=== PATIENT | male | born 1960 | race African-American/Black ===

== ENCOUNTER 2020-03-19 04:55 | Inpatient (IN) | payer BC, SELFPAY ==
[2020-03-19] VITALS (19 sets, daily range): BP systolic 78–140; BP diastolic 56–100; PULSE 95–127; RESP 20–35; TEMP 36.2–38.9; O2SAT 93–100; BMI 17.7
--- NOTE | ~2020-03-19 | CT_ITS ---
EXAMINATION: CT brain wo con DATE: 03/24/2020 22:21 INDICATION: Confusion. Rule out acute CVA. TECHNIQUE: Computed tomography (CT) of the head was performed without intravenous contrast. The dose- length product was 605.33 mGy-cm. Automated exposure control and iterative reconstruction technique w ere employed. COMPARISON: None FINDINGS: Generalized atrophy. There are large areas of chronic infarction of the left frontal, parie jose manuel, temporal and occipital lobes with encephalomalacia and dystrophic calcifications. There are scat tered moderate periventricular and subcortical white matter changes, most likely related to small ves rosa ischemic disease (microangiopathy). There is compensatory dilation of the ventricles. No midline shift. Basilar cisterns are patent. There is intracranial atherosclerosis. No acute infarction or hem orrhage. There is mucosal thickening of the right maxillary sinus. Mastoids are pneumatized. No depre ssed skull fractures. IMPRESSION: 1. No acute intracranial abnormality. 2: Large chronic multilobar left hemispheric infarction with encephalomalacia and dystrophic calcific ation. 3: Chronic age-related findings. Reviewed, dictated and finalized at location A. IMPRESSION: 1. No acute intracranial abnormality. 2: Large chronic multilobar left hemispheric infarction with encephalomalacia a nd dystrophic calcification. 3: Chronic age-related findings.
--- NOTE | ~2020-03-19 | US_ITS ---
EXAMINATION: US renal BI DATE: 03/19/2020 16:58 INDICATION: Acute kidney injury TECHNIQUE: Multiple grayscale and Doppler ultrasound images of the kidneys were obtained. COMPARISON: None. FINDINGS: Evaluation of the kidneys is limited by patient condition. The right kidney measures 10.7 x 4.0 x 4.5 cm. The left kidney measures 7.5 x 3.2 x 3.0 cm. The kidneys demonstrate normal parenchyma l echogenicity. There is no definite hydronephrosis. The bladder is decompressed by Cavanaugh catheter. IMPRESSION: 1. Grossly normal kidneys without hydronephrosis, examination limited by patient condition. Reviewed, dictated and finalized at location A. IMPRESSION: 1. Grossly normal kidneys without hydronephrosis, examination limited by patie nt condition.
--- NOTE | ~2020-03-19 | US_ITS ---
EXAMINATION: US venous doppler UE RT EXAM DATE: 03/20/2020 09:36 INDICATION: Right arm edema. TECHNIQUE: Multiple grayscale, color flow, Doppler sonographic images of the right upper extremity ve ins obtained by technologist. Compression was performed where able. Some limitations due to patient 's neck bandage. There are no prior studies for comparison. FINDINGS: Right upper extremity: Jugular vein: ------------> Normal. Subclavian vein: --------> Normal. Axillary vein:------------> Normal. Brachial vein:-----------> Normal. Basilic vein: ------------> Normal. Cephalic vein: ----------> Normal. Radial vein: ------------> Normal. Ulnar vein: > Normal. Right antecubital lymph node measuring 12 x 5 x 8 mm, likely reactive. IMPRESSION: No deep venous thrombosis of the right upper extremity. Reviewed, dictated and finalized at location B.
--- NOTE | ~2020-03-19 | US_ITS ---
EXAMINATION: US venous doppler [facility] EXAM DATE: 03/20/2020 09:35 INDICATION: Immobility. Hypoxia. TECHNIQUE: Multiple grayscale, color flow and Doppler images of the left lower extremity deep venous system were obtained and reviewed. There is no prior study for comparison. FINDINGS: The left common femoral, femoral and profunda veins demonstrate normal color flow, respirat ory variation, augmentation and compressibility. Compressibility, color flow confirmed within the le ft popliteal, posterior tibial, peroneal, and greater saphenous veins. IMPRESSION: 1. No left lower extremity deep venous thrombosis. Reviewed, dictated and finalized at location B.
--- NOTE | ~2020-03-19 | CT_ITS ---
EXAMINATION: CT abdomen pelvis wo con DATE: 03/30/2020 09:11 INDICATION: Fever. Anemia. TECHNIQUE: Computed tomography (CT) of the abdomen and pelvis was performed without intravenous contr ast. Automated exposure control and iterative reconstruction technique were employed. The dose-length product was 543.01 mGy-cm. COMPARISON: CT abdomen and pelvis 03/19/2020 FINDINGS: The visualized portions of the lung bases demonstrate near complete collapse of left lower lobe. There is mild atelectasis in right middle lobe, right lower lobe, and lingula. A calcified righ t lung nodule is consistent with old granulomatous disease. Emphysema is noted. There are small pleur al effusions. Cardiomegaly is noted. There are coronary artery calcifications. No pericardial effusio n. There is a central line tip in right atrium. The liver and spleen are normal. There is a gallstone in the gallbladder, which is decompressed. The pancreas, adrenal glands, and right kidney are normal . There is cortical thinning of left kidney. There is a gastrostomy tube in expected position. There is a 5.7 cm fusiform aneurysm of infrarenal aorta with stent graft in expected position. The prostate is mildly enlarged. There are no dilated loops of bowel. There is an acute 14.0 x 3.3 x 6.9 cm hemat mina anterior to the transverse colon. The appendix is normal. There are no pathologically enlarged ly mph nodes. There is no free intraperitoneal fluid. There is mild thoracolumbar spondylosis. IMPRESSION: 1. Large acute hematoma anterior to transverse colon. 2. Worsened small pleural effusions. 3. Worsened near complete collapse of left lung lower lobe. 4. Stable 5.7 cm fusiform aneurysm of infrarenal aorta with stent graft in expected position. Reviewed, dictated and finalized at location A. IMPRESSION: 1. Large acute hematoma anterior to transverse colon. 2. Worsened small pleural effusions. 3. Worsened near complete collapse of left lung lower lobe. 4. Stable 5.7 cm fusiform aneurysm of infrarenal aorta with stent graft in expe cted position.
--- NOTE | ~2020-03-19 | XR_ITS ---
MODIFIED ESOPHAGRAM HISTORY: Chronic stroke. Altered mental status. TECHNIQUE: Modified barium esophagram was performed on 03/23/2020. I administered fluoroscopy and perfo rmed the exam with speech pathologist. Patient was seated for lateral fluoroscopic imaging for inges tion of thin liquids, pudding, solids and quantified amounts, followed by thin liquids in uncontrolle d amounts. This was recorded on tape. A single fluoroscopic spot image was also recorded. The DAP for this procedure was 2.685 Gycm2. The amount of fluoroscopy time used during this procedure was 3.2 mi nutes. FINDINGS: Oral stage: Reduced lingual movement. Pharyngeal stage: Laryngeal penetration and aspiration. Reduced laryngeal elevation and dressed in th e vallecula and piriform sinus. Cervical/esophageal stage: Prominent Zenker's diverticulum. IMPRESSION: Laryngeal penetration and aspiration. Please correlate with speech pathologist findings and specific feeding recommendations. Reviewed, dictated and finalized at location A.
--- NOTE | ~2020-03-19 | CT_ITS ---
EXAMINATION: CT abdomen pelvis wo con DATE: 03/19/2020 22:44 INDICATION: Abdominal pain TECHNIQUE: Computed tomography (CT) of the abdomen and pelvis was performed without intravenous contr ast. The dose-length product (DLP) was 517.40 mGy-cm. Automated exposure control and iterative recons truction technique were employed. COMPARISON: None FINDINGS: There is atelectasis of the visualized lung bases. Small pleural effusions are present, lef t greater than right. Cardiomegaly is noted. There is bilateral gynecomastia. A small sliding hiatal hernia is present. Within the limitations of noncontrast examination, the liver, spleen, and adrenal glands are normal. The gallbladder is decompressed but normal in appearance. There appears to be mild diffuse enlargement of the pancreas with peripancreatic fat stranding. The kidneys are unremarkable. There is a 5.6 x 4.0 cm fusiform infrarenal abdominal aortic aneurysm status post endoluminal aortic biiliac stent grafting. No pathologically enlarged abdominal or pelvic lymph nodes are identified. T here is liquid stool throughout the colon to the level of the rectum. The bladder is decompressed by Cavanaugh catheter. Small amount of gas in the urinary bladder is likely related to the Cavanaugh catheter. T here is no free intraperitoneal gas or evidence of bowel obstruction. There is mild lumbar spondylosi s. IMPRESSION: 1. Diffuse enlargement of the pancreas with peripancreatic fat stranding, possibly reflecting pancrea titis. 2. Liquid stool throughout the colon to the level of the rectum, consistent with diarrhea. Reviewed, dictated and finalized at location A. IMPRESSION: 1. Diffuse enlargement of the pancreas with peripancreatic fat stranding, possi yona reflecting pancreatitis. 2. Liquid stool throughout the colon to the level of the rectum, consistent wit h diarrhea.
--- NOTE | ~2020-03-19 | US_ITS ---
EXAMINATION: US abdomen complete DATE: 03/20/2020 13:56 INDICATION: Pancreatitis, renal failure TECHNIQUE: Multiple grayscale and Doppler ultrasound images of the abdomen were obtained. COMPARISON: CT from yesterday FINDINGS: There is enlargement and edema of the pancreas. The liver is normal with normal echogenicit y and echotexture. There is a 2.4 x 1.7 x 2.2 cm hyperechoic mass of the liver. This is not identifie d on the comparison CT, likely due to the absence of intravenous contrast. No surface nodularity. Nor mal hepatopetal flow in the main portal vein. The gallbladder is contracted. There is no definite alison dence of pericholecystic fluid or gallbladder wall thickening. The normal common bile duct measures 6 mm. There was no sonographic Clarke sign. The visualized portions of the aorta and inferior vena cav a are normal. The right kidney measures 11.3 x 4.9 x 5.0 cm. The left kidney measures 9.4 x 4.1 x 5.0 cm. The kidne ys demonstrate normal parenchymal echogenicity. There is no hydronephrosis. The spleen is obscured by bowel gas but was unremarkable on the comparison CT. IMPRESSION: 1. Enlarged pancreas, consistent with history of pancreatitis. 2. Indeterminate hyperechoic liver lesion, possibly hemangioma but characterization is incomplete. Wo uld recommend follow-up CT or MRI without and with contrast when renal function improves. Reviewed, dictated and finalized at location A. IMPRESSION: 1. Enlarged pancreas, consistent with history of pancreatitis. 2. Indeterminate hyperechoic liver lesion, possibly hemangioma but characteriza tion is incomplete. Would recommend follow-up CT or MRI without and with contra st when renal function improves.
--- NOTE | ~2020-03-19 | XR_ITS ---
EXAMINATION: XR chest 1V portable DATE: 03/20/2020 05:48 INDICATION: Hypoxia TECHNIQUE: frontal view of the chest was obtained. COMPARISON: Chest radiograph dated 03/19/2020 FINDINGS: Right internal jugular central venous catheter with distal tip in the high right atrium. Implantable quality assurance monitor chassis projects over the lower left chest. Mild bibasilar atelectasis with chronic blunting of the right costophrenic angle. No new airspace opacities, pulmonary edema, pleural effusion or pneu mothorax. Heart size is normal. Masslike contour along the right side of the superior the sternum. IMPRESSION: 1. Bibasilar atelectasis. 2. Masslike contour along the right side of the superior mediastinum which could be related to vascul ature, goiter or lymphadenopathy. Consider contrast-enhanced chest CT for further evaluation. Reviewed, dictated and finalized at location A. IMPRESSION: 1. Bibasilar atelectasis. 2. Masslike contour along the right side of the superior mediastinum which coul d be related to vasculature, goiter or lymphadenopathy. Consider contrast-enhan hanna chest CT for further evaluation.
--- NOTE | ~2020-03-19 | NM_ITS ---
EXAMINATION: NM pulmonary perfusion EXAM DATE: 03/20/2020 13:24 INDICATION: Hypoxia, elevated d-dimer. TECHNIQUE: A perfusion lung scan was performed. The patient was injected with 5 mCi technetium 99m M AA and reimaged. Modified PIOPED 2 criteria used for interpretation of perfusion without ventilation study. Correlation is made to portable AP chest x-ray same date. FINDINGS: Right middle lobe lateral segmental perfusion defect, and subsegmental right upper lobe per fusion defect; intermediate probability pulmonary embolism (high probability scan requires equivalent of 2 large perfusion defects to be rendered). Chest x-ray from this same date demonstrates no radiog raphic opacity in this location. No left-sided perfusion defects. IMPRESSION: 2 right lung perfusion defects; intermediate probability pulmonary embolism. Reviewed, dictated and finalized at location B.
--- NOTE | ~2020-03-19 | XR_ITS ---
EXAMINATION: XR chest port-a-cath/central DATE: 03/19/2020 06:34 INDICATION: Line placement TECHNIQUE: frontal view of the chest was obtained. COMPARISON: None FINDINGS: Triple lumen right internal jugular central venous catheter with distal tip at the high right atrium. Implantable cardiac specialist projects over the left lower lung zone. Bandlike discoid atelectasis in the left perihilar region and at the left lung base. Pleural parenchymal scarring with blunting at th e right costophrenic angle. No other airspace opacities, pulmonary edema, pleural effusion or pneumot horax. The cardiomediastinal silhouette is normal. Likely old healed left fifth rib fracture. IMPRESSION: 1. Mild scarring at the right costophrenic angle and discoid atelectasis in the left mid to lower leta g zones. Reviewed, dictated and finalized at location A. IMPRESSION: 1. Mild scarring at the right costophrenic angle and discoid atelectasis in the left mid to lower lung zones.
--- NOTE | 2020-03-19 04:57 | ECG_ITS ---
Measurements Intervals [place] Rate: 108 P: 18 WY: 130 QRS: 41 QRSD: 95 T: 81 QT: 331 QTc: 445 Interpretive Statements SINUS TACHYCARDIA INFERIOR INFARCT, AGE INDETERMINATE BORDERLINE ST-T WAVE ABNORMALITY- HIGH LATERAL LEADS ABNORMAL ECG Electronically Signed On 03-19-2020 7:15:17 CDT by Brayan Millan D.O.
--- NOTE | 2020-03-19 05:10 | PC.NURSE ---
unable to gain iv access, provider attempting EJ at this time
--- NOTE | 2020-03-19 05:32 | PC.NURSE ---
decision made to place central line dr guzman to place.
--- NOTE | 2020-03-19 05:52 | PC.NURSE ---
unable to place central line at this time call placed to chargemaster analyst to ask for another provider to assist in central line placEment awaiting response from dr herrera
--- NOTE | 2020-03-19 06:08 | ED.FEVER ---
HPI - Fever General Chief Complaint: Fever <Paloma Rodriguez MD - Last Filed: 03/20/20 19:42> Stated Complaint: fever <Paloma Rodriguez MD - Last Filed: 03/20/20 19:42> Time Seen by Provider: 03/19/20 07:38 <Paloma Rodriguez MD - Last Filed: 03/20/20 19:42> History of Present Illness HPI Narrative: Patient presents via EMS from the long-term for fever. He is not able to speak and gives no indication of communication except he moans with his IV attempt. The long-term papers do not specify his DNR status. The only history is that we have his fever. His breathing is very coarse and probably pneumonia. <Paloma Rodriguez MD - Last Filed: 03/20/20 19:42> MD elicited complaint: fever <Paloma Rodriguez MD - Last Filed: 03/20/20 19:42> Onset (ago): hour(s) <Paloma Rodriguez MD - Last Filed: 03/20/20 19:42> Related Data Home Medications: Home Medications Medication Instructions Recorded Confirmed acetaminophen [Tylenol Extra 500 mg PO Q6H PRN 03/19/20 03/19/20 Strength] amlodipine 10 mg PO DAILY 03/19/20 03/19/20 aspirin 81 mg PO DAILY 03/19/20 03/19/20 atorvastatin 80 mg PO HS 03/19/20 03/19/20 ferrous sulfate 325 mg PO EVERY OTHER DAY 03/19/20 03/19/20 gabapentin 400 mg PO TID 03/19/20 03/19/20 metoprolol succinate 100 mg PO DAILY 03/19/20 03/19/20 oxycodone 10 mg PO Q4H PRN 03/19/20 03/19/20 polyethylene glycol 3350 17 g PO DAILY 03/19/20 03/19/20 silver sulfadiazine [Silvadene] 1 applic TOPICAL Q12H 03/19/20 03/19/20 tamsulosin 0.8 mg PO HS 03/19/20 03/19/20 <Paloma Rodriguez MD - Last Filed: 03/20/20 19:42> Allergies/Adverse Reactions: Allergies Allergy/AdvReac Type Severity Reaction Status Date / Time Penicillins Allergy Unknown Verified 03/19/20 06:50 <Paloma Rodriguez MD - Last Filed: 03/20/20 19:42> Review of Systems Review of Systems: Narrative: Review of systems is not able to be obtained because the patient does not speak. 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 Dysphagia On a regular diet as of 03/19/2020. Essential hypertension Iron deficiency anemia Peripheral vascular disease Status post right ihbom-mwa-bxaw amputation. Type 2 diabetes mellitus Hemoglobin A1c was 7.3 on 03/19/2020. <Paloma Rodriguez MD - Last Filed: 03/20/20 19:42> Surgical History Surgical History: Surgical History (Updated 03/19/20 @ 23:55 by Annette Boston PA-C) History of abdominal aortic aneurysm (AAA) repair History of incision and drainage (~2018) Perineal abscess. History of loop recorder History of right above knee amputation (~08/2019) <Paloma Rodriguez MD - Last Filed: 03/20/20 19:42> Family History Family History: Family History (Updated 03/19/20 @ 21:03 by Annette Boston PA-C) Mother Diabetes mellitus <Paloma Rodriguez MD - Last Filed: 03/20/20 19:42> Social History Social History: Social History (Updated 03/19/20 @ 21:03 by Annette Boston PA-C) Social History: The patient is a resident of [facility]. He will get up to the wheelchair on occasion but it sounds like he is mainly bed bound. As of 03/19/2020, he is on regular diet otherwise is full care. Before his stroke, he was a smoker and a heavy drinker. His sister, Latoya Gimenez, is his healthcare power of attorney general. She wishes him to be a DNR. <Paloma Rodriguez MD - Last Filed: 03/20/20 19:42> Exam Narrative: Exam Narrative: GENERAL: Patient is unresponsive, and, coarse breath sounds, and right ttsbo-wch-oeyg amputation. HEAD: Normocephalic, atraumatic. EYES: PERRLA and EOMI. ENT: Nares clear, no rhinorrhea or epistaxis. Mucous membranes moist. NECK: Supple. CHEST: Coarse breath sounds with rhonch
--- NOTE | 2020-03-19 06:26 | PC.NURSE ---
LINE PLACED BY DR WEINSTEIN, AWAITING XRAY TO CONFIRM PLACEMENT PRIOR TO USE AND BLOOD DRAW.
--- NOTE | 2020-03-19 06:30 | PC.NURSE ---
PT HAD REPLACEMENT PLACED, TOLERATED WELL, 1L DRAINED AFTER PLACEMENT
[2020-03-19] MEDS: SODIUM CHLORIDE 0.9% IV 1,000 ML 999 ML IV CONT ×2 (06:43→07:42)
[2020-03-19 06:58] LABS: Hematocrit 34.8 % (42.0-52.0); Hemoglobin 10.7 g/dL (14.0-18.0); Immature Platelet Fraction Pct 4.7 % (0.9-11.2); Mean Corpuscular HGB Conc 30.7 g/dl (32-36); Mean Corpuscular Hemoglobin 23.7 pg (26-34); Mean Platelet Volume 10.4 fl (7.4-10.4); Platelet Count Result 388 k/mm3 (150-375); Red Blood Count 4.52 M/mm3 (4.6-6.20); Red Cell Distribution Width 17.9 % (11.5-14.5); White Blood Count 28.3 K/mm3 (4.5-10.0)
[2020-03-19 07:05] LABS: Add Urine Microscopic? YES; Appearance Urine Turbid (Clear); Bacteria Urine Trace /hpf; Bilirubin Urine Negative (Negative); Blood Urine 3+ (Negative); Glucose Urine UA Negative (Negative); Ketones Urine Negative (Negative); Leukocyte Esterase Ur 2+ LEU/UL (Negative); Nitrate Urine Negative (Negative); Protein Urine 3+ mg/dL (Negative); RBC Urine >75 /hpf (0-2); Specific Grav Ur 1.012 (1.001-1.035); Urobilinogen Urine Negative mg/dL (<2.0); WBC Urine >75 /hpf
[2020-03-19 07:06] LABS: Color Urine Light Red (Yellow); Lactic Acid Reflex 2.3 mmol/L (0.7-2.1)
[2020-03-19 07:11] LABS: INR 1.5; Prothrombin Time 18.1 Seconds (11.1-14.7)
[2020-03-19 07:12] LABS: Partial Thromboplastin Time 34.9 SECONDS (22.3-36.8)
[2020-03-19 07:15] LABS: Band Neutrophils Percent 5 % (0-6); Lymphocytes Absolute Manual 1.41 K/mm3 (1.1-4.5); Monocytes Absolute Manual 0.84 K/mm3 (0.1-0.90); Monocytes Percent Manual 3 % (3-9); Neutrophils Absolute Manual 26.03 K/mm3 (1.3-6.7); Neutrophils Percent Manual 87 % (46-73); Platelet Estimate Adequate (Adequate); Total Cells Counted 100
[2020-03-19 07:16] LABS: Ovalocytes 1+ (NORMAL); Poikilocytosis 1+ (NORMAL)
--- NOTE | 2020-03-19 07:18 | PC.NURSE ---
Assumed care of pt, pt is alert on stretcher and responds to verbal stimuli. Pt on campus monitor. Discussed POC. Fluids and antibiotics infusing.
[2020-03-19 07:22] LABS: Alanine Aminotransferase 19 U/L (4-50); Albumin Level 3.8 g/dL (3.5-5.1); Alkaline Phosphatase 152 U/L (38-126); Aspartate Amino Transferase 32 U/L (17-59); Bilirubin,Total 0.6 mg/dL (0.2-1.3); Blood Urea Nitrogen 78 mg/dL (9-20); Carbon Dioxide 16 mmol/L (22-30); Chloride 105 mmol/L (98-107); Estimated CRCL calculation 8 ml/min; Estimated Glomerular Filt Rate 9; Glucose 201 mg/dL (75-110); Potassium 5.2 mmol/L (3.4-5.0); Sodium 137 mmol/L (137-145)
[2020-03-19 07:45] LABS: CRP > 45.0 mg/dL (<1.0)
--- NOTE | 2020-03-19 09:45 | PC.NURSE ---
This patient, Maynor Inman, was admitted to IMU status, and placed in Intensive Care Unit-3. Patient/family oriented to hospital policies and general routines including ID bracelet, bed and alarms, visiting hours, pain management, procedures, bathroom and other care routines, personal items, smoking policy, room service/diet, and visiting hours. Valuables list has been completed. Information on how to activate the Rapid Response Team has been discussed. Patient/Family are encouraged to report perceived risks to care and to ask questions if they do not understand what they are told or what they should do.
[2020-03-19 09:53] LABS: Reflex Lactic Acid Yes or No Add Lactic
[2020-03-19] MEDS: SODIUM CHLORIDE 0.9% IV 1,000 ML 125 ML IV CONT ×2 (10:14→17:30)
[2020-03-19 11:51] LABS: Lactic Acid 1.3 mmol/L (0.7-2.1)
--- NOTE | 2020-03-19 12:25 | PC.NURSE ---
Spoke with RAMON Villalpando in wound clinic regarding patient's buttocks and stump. Photos taken and assessed by RAMON Villalpando. New order to apply triple care to open areas of coccyx and buttocks and leave open to air. Apply mepilex border to area on stump for protection.
--- NOTE | 2020-03-19 12:45 | PCWOUND ---
WOCN NOTE spoke with Laura NAVARRO about area to buttock and stump. Pictures assessed as patient is on COVID rule out precautions. Buttock with old scars present. No true areas open per RN. RN to apply Triple Care Antifungal cream to areas. RN to put in orders under following [place] area to stump, if area is open, apply Silver gel and a mepilex border. if not opened, then cover with a border to cushion. RN to put in orders under following
--- NOTE | 2020-03-19 17:00 | PM.IMHP ---
H&P: HPI History of Present Illness Chief complaint: Fever and hypoxia. Narrative: Maynor Inman is a 59-year-old gentleman with history of cerebrovascular accident with resultant dense hemiplegia and aphasia, congestive heart failure, hypertension, and diabetes who presented to the emergency department earlier this morning via EMS from [facility] with reports of fever and hypoxia. Given his expressive aphasia and inability/unwillingness to write (despite being left handed), he is not able to provide me with much of a history however he does seem to understand questions I am asking him and he is able to say yes and shake his head no appropriately. Some of the following history is also obtained via a review of his electronic medical records as well as discussions with his sister via phone. According to the triage note he was febrile at the residential, prompting the call to EMS. On their arrival, his SpO2 was 87% on room air and a systolic blood pressures were in the 80s. A central line was placed not long after arrival to the emergency department but we have not needed to initiate pressors as of yet. He was found to have an acute kidney injury with some concern for possible obstruction as his Cavanaugh catheter was draining on a small amount of thick, cloudy, foul smelling urine and that was changed in the ED. He was also tested for COVID-19 given the fever although chest x-ray did not show any infiltrates. He was admitted with a working diagnosis of sepsis, UTI, acute kidney injury, and possible pneumonia due to hypoxia. At the time of my evaluation, he is alert but not able to provide any history due to his expressive aphasia. He indicates pain in his right lower quadrant on exam and that pretty much all I can get out of him. Review of Systems Review of Systems: Narrative: A review of systems is unable to be accomplished accurately given his expressive aphasia. 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 Dysphagia On a regular diet as of 03/19/2020. Essential hypertension Iron deficiency anemia Peripheral vascular disease Status post right goryd-rcw-wlde amputation. Type 2 diabetes mellitus Hemoglobin A1c was 7.3 on 03/19/2020. Surgical History Surgical History (Updated 07/01/20 @ 23:55 by Annette Boston PA-C) History of abdominal aortic aneurysm (AAA) repair History of incision and drainage (~2018) Perineal abscess. History of loop recorder History of right above knee amputation (~08/2019) Family History Family History (Updated 03/19/20 @ 21:03 by Annette Boston PA-C) Mother Diabetes mellitus Social History Social History (Updated 03/19/20 @ 21:03 by Annette Boston PA-C) Social History: The patient is a resident of [facility]. He will get up to the wheelchair on occasion but it sounds like he is mainly bed bound. As of 03/19/2020, he is on regular diet otherwise is full care. Before his stroke, he was a smoker and a heavy drinker. His sister, Latoya Gimenez, is his healthcare power of collections attorney. She wishes him to be a DNR. Meds Home Medications and Allergies Home Medications Medication Instructions Recorded Confirmed Type acetaminophen [Tylenol Extra 500 mg PO Q6H PRN 03/19/20 03/19/20 History Strength] amlodipine 10 mg PO DAILY 03/19/20 03/19/20 History aspirin 81 mg PO DAILY 03/19/20 03/19/20 History atorvastatin 80 mg PO HS 03/19/20 03/19/20 History ferrous sulfate 325 mg PO EVERY OTHER DAY 03/19/20 03/19/20 History gabapentin 400 mg PO TID 03/19/20 03/19/20 History metoprolol succinate 100 mg PO DAILY 03/19/20 03/19/20 History oxycodone 10 mg PO Q4H PRN 03/19/20 03/19/20 History polyethylene glycol 3350 17 g PO DAILY 03/19/20 03/19/20 History silver sulfadiazine [Silvadene] 1 ap
[2020-03-19 17:09] LABS: Creatine Kinase 900 U/L (55-170)
[2020-03-19 17:10] LABS: Blood Urea Nitrogen 78 mg/dL (9-20); Calcium 7.7 mg/dL (8.4-10.2); Carbon Dioxide 15 mmol/L (22-30); Chloride 111 mmol/L (98-107); Estimated CRCL calculation 10 ml/min; Estimated Glomerular Filt Rate 11; Glucose 141 mg/dL (75-110); Lactate Dehydrogenase 798 U/L (313-618); Magnesium 1.8 mg/dL (1.6-2.3); Potassium 4.7 mmol/L (3.4-5.0); Sodium 138 mmol/L (137-145)
[2020-03-19 17:11] LABS: Hemoglobin A1C 7.3 % (<5.7)
[2020-03-19 17:25] LABS: D Dimer 8.83 ug/mL (<0.48)
[2020-03-19 18:32] LABS: Glucose Point of Care 127 (65-105)
[2020-03-19 19:18] LABS: SARS-CoV-2 RNA PCR Negative
--- NOTE | 2020-03-19 22:02 | PC.NURSE ---
Spoke with Annette SINCLAIR regarding covid swab. No need for reswab per Annette SINCLAIR. Okay to take patient off Isolation for COVID since original test was negative. Continue with CT.
[2020-03-19 22:31] LABS: Base Excess ABG -12.6 mEq/l (+/-2.0); Carboxyhemoglobin 0.3 % THb (0-2.0); Device NASAL CANNULA; Fractional Inspired Oxygen 32 %; HCO3 ABG 11.6 mEq/l (22.0-26.0); Methemoglobin ABG 0.4 %THb (0-1.5); Oxygen Content ABG 13.8 %vol (16.0-22.0); Oxygen Saturation ABG 95.5 % (95.0-100.0); Oxyhemoglobin 93.5 % THb (90.0-100.0); PCO2 ABG 22.6 mmHg (35.0-45.0); PO2 ABG 80.7 mmHg (80.0-100.0); PO2 FiO2 Ratio Arterial Blood 2.52 %; Reduced Hemoglobin 5.8 %THb (0-5.0); Site Drawn LEFT BRACHIAL; Total Hemoglobin 10.4 g/dL (12.0-18.0); pH ABG 7.329 (7.350-7.450)
[2020-03-19 22:40] LABS: Blood Urea Nitrogen 80 mg/dL (9-20); Calcium 7.7 mg/dL (8.4-10.2); Carbon Dioxide 15 mmol/L (22-30); Chloride 112 mmol/L (98-107); Creatine Kinase 1088 U/L (55-170); Estimated CRCL calculation 10 ml/min; Estimated Glomerular Filt Rate 12; Glucose 130 mg/dL (75-110); Potassium 4.6 mmol/L (3.4-5.0); Sodium 140 mmol/L (137-145)
[2020-03-19 23:52] LABS: Lipase 5910 U/L (23-300)
[2020-03-20] VITALS (14 sets, daily range): BP systolic 93–119; BP diastolic 56–72; PULSE 83–105; RESP 17–23; TEMP 37.1–38.2; O2SAT 98–100
[2020-03-20] MEDS: SODIUM BICARBONATE 8.4% 150 MEQ in WATER, STERILE FOR INJECTION 950 ML 100 MEQ IV CONT ×2 (00:05→12:06)
[2020-03-20] MEDS: metroNIDAZOLE 500 MG/ISO 100ML 500 MG/100 ML BAG 100 MG IVPB ×4 (00:14→23:43)
[2020-03-20 00:30] LABS: IFOB Positive Control Positive; Immunochemical Fecal Occult Bl Negative (N)
[2020-03-20 05:08] LABS: Basophils Percent Auto 0.2 % (0.2-1.2); Hematocrit 28.3 % (42.0-52.0); Hemoglobin 8.7 g/dL (14.0-18.0); Immature Granulocyte Absolute 0.17 K/mm3 (0.00-0.031); Lymphocytes Absolute Auto 0.84 K/mm3 (0.9-3.2); Lymphocytes Percent Auto 5.1 % (18.3-44.2); Mean Corpuscular HGB Conc 30.7 g/dl (32-36); Mean Corpuscular Hemoglobin 23.8 pg (26-34); Mean Corpuscular Volume 77.5 fl (80-100); Monocytes Absolute Auto 0.4 K/mm3 (0.1-0.6); Monocytes Percent Auto 2.7 % (2.6-8.5); Platelet Count Result 263 k/mm3 (150-375); Red Blood Count 3.65 M/mm3 (4.6-6.20); White Blood Count 16.5 K/mm3 (4.5-10.0)
[2020-03-20 05:48] LABS: Alanine Aminotransferase 28 U/L (4-50); Albumin Level 3.1 g/dL (3.5-5.1); Alkaline Phosphatase 130 U/L (38-126); Aspartate Amino Transferase 74 U/L (17-59); Bilirubin,Total 0.3 mg/dL (0.2-1.3); Blood Urea Nitrogen 82 mg/dL (9-20); Calcium 7.7 mg/dL (8.4-10.2); Carbon Dioxide 16 mmol/L (22-30); Chloride 110 mmol/L (98-107); Creatine Kinase 1397 U/L (55-170); Estimated CRCL calculation 11 ml/min; Estimated Glomerular Filt Rate 12; Glucose 128 mg/dL (75-110); Magnesium 1.9 mg/dL (1.6-2.3); Phosphorus 6.2 mg/dL (2.5-4.5); Sodium 139 mmol/L (137-145)
[2020-03-20 06:00] LABS: CRP 43.8 mg/dL (<1.0)
[2020-03-20 11:39] LABS: Glucose Point of Care 88 (65-105)
[2020-03-20] MEDS: HEPARIN SODIUM 5,000 UNITS/ML VIAL 5000 UNITS SUB-Q (14:06)
--- NOTE | 2020-03-20 15:14 | P.PNIM_ITS ---
Progress Note: A&P Assessment and Plan (1) Severe sepsis: Code(s): A41.9 - Sepsis, unspecified organism; R65.20 - Severe sepsis without septic shock Status: Acute Assessment and Plan: * Present on admission and supported by hypotension, fever, leukocytosis, elevated lactic acid, and acute kidney injury. * Lactic acid level has normalized with IV fluid rehydration and blood pressures have improved somewhat without pressors will continue aggressive hydration. * Central line placed in the ED though he has not required vasopressors with a MAP consistently above 65. * Sepsis presumably due to urinary tract infection however given his abdominal exam, and/or pancreatitis (2) Complicated urinary tract infection: Code(s): N39.0 - Urinary tract infection, site not specified Status: Acute Assessment and Plan: * Secondary to indwelling Cavanaugh catheter. * He has been started on cefepime, pending urine culture. * Empiric vancomycin, pending urine culture. (3) Acute kidney injury: Code(s): N17.9 - Acute kidney failure, unspecified Status: Acute Assessment and Plan: * Likely multifactorial in etiology. He appears quite dry on exam and it sounds as though his Cavanaugh catheter was not draining well due to pus in the urine, and thus there may be a component of postobstructive uropathy. * Cavanaugh catheter has been changed and will monitor strict I/O. * Creatinine is falling * Renal ultrasound ordered and CK is elevated also * Third spacing with pancreatitis could be an etiology also * (4) Type 2 diabetes mellitus: Code(s): E11.9 - Type 2 diabetes mellitus without complications Status: Acute Assessment and Plan: * According to his sister, he has been diagnosed with diabetes but has never been started on oral medication. * For the time being he will be on sliding scale insulin and hemoglobin A1c 7.3 (5) Essential hypertension: Code(s): I10 - Essential (primary) hypertension Status: Acute Assessment and Plan: * Antihypertensives are on hold given sepsis and relative hypotension. (6) Acute respiratory failure with hypoxia: Code(s): J96.01 - Acute respiratory failure with hypoxia Status: Acute Assessment and Plan: * Chest x-ray is really unremarkable and he is negative for COVID-19. * Repeat chest x-ray today no real change. * Pulmonary embolism is a consideration but due to his kidney failure he is unable to have contrast. Due to profound uremia, with the elevated D-dimer V/Q scan was intermediate probability and will start on IV heparin * If renal status improves enough possible CTA of the chest before commit to long-term anticoagulation * venous Doppler ultrasounds of right upper extremity and left lower extremity are negative for DVT * He will be NPO for now for probable pancreatitis and swallow test today looked to be okay but speech recommended modified swallow with (7) Abdominal pain: Code(s): R10.9 - Unspecified abdominal pain Status: Acute Assessment and Plan: * Lipase of of [address] scan looks to be acute pancreatitis. Continue aggressive hydration pain control and follow lipase with LFTs. * Still and p.o. with the a probab
--- NOTE | 2020-03-20 15:14 | PM.IMPN ---
Progress Note: A&P Assessment and Plan (1) Severe sepsis: Code(s): A41.9 - Sepsis, unspecified organism; R65.20 - Severe sepsis without septic shock Status: Acute Assessment and Plan: Present on admission and supported by hypotension, fever, leukocytosis, elevated lactic acid, and acute kidney injury. Lactic acid level has normalized with IV fluid rehydration and blood pressures have improved somewhat without pressors will continue aggressive hydration. Central line placed in the ED though he has not required vasopressors with a MAP consistently above 65. Sepsis presumably due to urinary tract infection however given his abdominal exam, and/or pancreatitis (2) Complicated urinary tract infection: Code(s): N39.0 - Urinary tract infection, site not specified Status: Acute Assessment and Plan: Secondary to indwelling Cavanaugh catheter. He has been started on cefepime, pending urine culture. Empiric vancomycin, pending urine culture. (3) Acute kidney injury: Code(s): N17.9 - Acute kidney failure, unspecified Status: Acute Assessment and Plan: Likely multifactorial in etiology. He appears quite dry on exam and it sounds as though his Cavanaugh catheter was not draining well due to pus in the urine, and thus there may be a component of postobstructive uropathy. Cavanaugh catheter has been changed and will monitor strict I/O. Creatinine is falling Renal ultrasound ordered and CK is elevated also Third spacing with pancreatitis could be an etiology also (4) Type 2 diabetes mellitus: Code(s): E11.9 - Type 2 diabetes mellitus without complications Status: Acute Assessment and Plan: According to his sister, he has been diagnosed with diabetes but has never been started on oral medication. For the time being he will be on sliding scale insulin and hemoglobin A1c 7.3 (5) Essential hypertension: Code(s): I10 - Essential (primary) hypertension Status: Acute Assessment and Plan: Antihypertensives are on hold given sepsis and relative hypotension. (6) Acute respiratory failure with hypoxia: Code(s): J96.01 - Acute respiratory failure with hypoxia Status: Acute Assessment and Plan: Chest x-ray is really unremarkable and he is negative for COVID-19. Repeat chest x-ray today no real change. Pulmonary embolism is a consideration but due to his kidney failure he is unable to have contrast. Due to profound uremia, with the elevated D-dimer V/Q scan was intermediate probability and will start on IV heparin If renal status improves enough possible CTA of the chest before commit to long-term anticoagulation venous Doppler ultrasounds of right upper extremity and left lower extremity are negative for DVT He will be NPO for now for probable pancreatitis and swallow test today looked to be okay but speech recommended modified swallow with (7) Abdominal pain: Code(s): R10.9 - Unspecified abdominal pain Status: Acute Assessment and Plan: Lipase of of [address] scan looks to be acute pancreatitis. Continue aggressive hydration pain control and follow lipase with LFTs. Still and p.o. with the a probable pancreatitis (8) Iron deficiency anemia: Code(s): D50.9 - Iron deficiency anemia, unspecified Status: Acute Assessment and Plan: History of iron deficiency anemia. Check iron studies and ferritin will be high with acute phase reactant. Follow CBC Subjective Date/time seen: 03/20/20 15:14 Interval history: Date of visit 03/20.
[2020-03-20 16:10] LABS: Basophils Absolute Auto 0.1 K/mm3 (0.0-0.1); Basophils Percent Auto 0.3 % (0.2-1.2); Eosinophils Percent Auto 0.1 % (0-4.4); Hematocrit 27.6 % (42.0-52.0); Hemoglobin 8.5 g/dL (14.0-18.0); Immature Granulocyte Absolute 0.14 K/mm3 (0.00-0.031); Immature Granulocyte Percent A 0.8 % (0-0.5); Lymphocytes Absolute Auto 0.71 K/mm3 (0.9-3.2); Lymphocytes Percent Auto 4.1 % (18.3-44.2); Mean Corpuscular HGB Conc 30.8 g/dl (32-36); Mean Corpuscular Hemoglobin 23.5 pg (26-34); Mean Corpuscular Volume 76.5 fl (80-100); Mean Platelet Volume 10.8 fl (7.4-10.4); Monocytes Absolute Auto 0.4 K/mm3 (0.1-0.6); Monocytes Percent Auto 2.4 % (2.6-8.5); Neutrophils Absolute Auto 16.1 K/mm3 (1.3-6.7); Neutrophils Percent Auto 92.3 % (45.5-73.1); Platelet Count Result 286 k/mm3 (150-375); Red Blood Count 3.61 M/mm3 (4.6-6.20); Red Cell Distribution Width 17.8 % (11.5-14.5); White Blood Count 17.4 K/mm3 (4.5-10.0)
[2020-03-20 16:21] LABS: INR 1.4; Prothrombin Time 16.4 Seconds (11.1-14.7)
[2020-03-20 16:22] LABS: Partial Thromboplastin Time 38.9 SECONDS (22.3-36.8)
[2020-03-20 16:27] LABS: Ovalocytes 1+ (NORMAL); Platelet Estimate Adequate (Adequate)
[2020-03-20] MEDS: HEPARIN SODIUM 5,000 UNITS/ML VIAL 5000 UNITS IV PUSH (17:03)
[2020-03-20] MEDS: HEPARIN SOD/D5W 100 UNITS/ML 25,000 UNITS/250 ML BAG 11 UNITS IV CONT (17:04)
[2020-03-20 18:06] LABS: Glucose Point of Care 96 (65-105)
--- NOTE | 2020-03-20 19:07 | PC.NURSE ---
This patient, Maynor Inman, was transferred to [[facility]] on 03/20/20 at 1840. Personal belongings sent with patient. Belongings list checked and signed with receiving CCT. Report given to [Pradip NAVARRO]. Appropriate documentation sent with patient.
--- NOTE | 2020-03-20 19:10 | PC.NURSE ---
Pt from ICU3 to room 316-1. Welcomed and oriented.
[2020-03-21] LABS: Partial Thromboplastin Time 145.8 SECONDS (22.3-36.8)
[2020-03-21 00:45] LABS: Glucose Point of Care 92 (65-105)
[2020-03-21] MEDS: SODIUM BICARBONATE 8.4% 150 MEQ in WATER, STERILE FOR INJECTION 950 ML 100 MEQ IV CONT ×2 (02:43→18:53)
[2020-03-21 05:49] LABS: Basophils Absolute Auto 0.1 K/mm3 (0.0-0.1); Basophils Percent Auto 0.4 % (0.2-1.2); Eosinophils Percent Auto 0.2 % (0-4.4); Hematocrit 23.9 % (42.0-52.0); Hemoglobin 7.3 g/dL (14.0-18.0); Immature Granulocyte Percent A 1.2 % (0-0.5); Immature Reticulocyte Fraction 5.1 % (3.0-15.9); Lymphocytes Absolute Auto 0.72 K/mm3 (0.9-3.2); Lymphocytes Percent Auto 4.2 % (18.3-44.2); Mean Corpuscular HGB Conc 30.5 g/dl (32-36); Mean Corpuscular Hemoglobin 23.1 pg (26-34); Mean Corpuscular Volume 75.6 fl (80-100); Mean Platelet Volume 10.7 fl (7.4-10.4); Monocytes Absolute Auto 0.4 K/mm3 (0.1-0.6); Monocytes Percent Auto 2.2 % (2.6-8.5); Neutrophils Absolute Auto 15.6 K/mm3 (1.3-6.7); Neutrophils Percent Auto 91.8 % (45.5-73.1); Platelet Count Result 277 k/mm3 (150-375); Red Blood Count 3.16 M/mm3 (4.6-6.20); Red Cell Distribution Width 17.8 % (11.5-14.5); Reticulocyte Hemoglobin Conten 21.5 pg (28.2-35.7); Reticulocyte Percent 0.52 % (0.7-4.3); Reticulocytes Absolute 0.02 B/L (32.2-175.7)
[2020-03-21 06:00] VITALS: BP 114/63; PULSE 81; RESP 16; TEMP 36.3; O2SAT 97
[2020-03-21 06:00] LABS: Partial Thromboplastin Time 107.9 SECONDS (22.3-36.8)
[2020-03-21] MEDS: metroNIDAZOLE 500 MG/ISO 100ML 500 MG/100 ML BAG 100 MG IVPB ×3 (06:05→21:36)
[2020-03-21 06:11] LABS: Alanine Aminotransferase 26 U/L (4-50); Alkaline Phosphatase 150 U/L (38-126); Aspartate Amino Transferase 58 U/L (17-59); Bilirubin,Total 0.5 mg/dL (0.2-1.3); Blood Urea Nitrogen 80 mg/dL (9-20); Calcium 7.6 mg/dL (8.4-10.2); Carbon Dioxide 22 mmol/L (22-30); Chloride 106 mmol/L (98-107); Cholesterol 62 mg/dL (0-200); Creatine Kinase 812 U/L (55-170); Estimated CRCL calculation 13 ml/min; Estimated Glomerular Filt Rate 16; Glucose 94 mg/dL (75-110); HDL Direct 11 mg/dL; Lipase 1477 U/L (23-300); Phosphorus 4.5 mg/dL (2.5-4.5); Potassium 3.2 mmol/L (3.4-5.0); Sodium 139 mmol/L (137-145); Triglycerides 153 mg/dL (<150)
[2020-03-21 06:50] LABS: LDL Cholesterol Direct < 30 mg/dL
[2020-03-21 06:56] LABS: Glucose Point of Care 83 (65-105)
[2020-03-21 07:33] LABS: Vancomycin Random 9.5 ug/mL (10-20)
[2020-03-21 07:46] VITALS: O2SAT 95
[2020-03-21 08:41] LABS: Iron 15 ug/dL (49-181)
[2020-03-21 08:43] LABS: Percent Iron Saturation 8 % (20-50)
[2020-03-21 12:06] LABS: Partial Thromboplastin Time 81.8 SECONDS (22.3-36.8)
[2020-03-21 12:08] LABS: Glucose Point of Care 119 (65-105)
--- NOTE | 2020-03-21 13:39 | P.PNIM_ITS ---
Progress Note: A&P Assessment and Plan (1) Severe sepsis: Code(s): A41.9 - Sepsis, unspecified organism; R65.20 - Severe sepsis without septic shock Status: Acute Assessment and Plan: * Present on admission and supported by hypotension, fever, leukocytosis, elevated lactic acid, and acute kidney injury. * Lactic acid level has normalized with IV fluid rehydration and blood pressures have improved somewhat without pressors will continue aggressive hydration. * Central line placed in the ED though he has not required vasopressors with a MAP consistently above 65. * Sepsis presumably due to urinary tract infection(urine only [id number] colonies) however given his abdominal exam, and/or pancreatitis * 1/2 BC+ for gram + cocci. (2) Complicated urinary tract infection: Code(s): N39.0 - Urinary tract infection, site not specified Status: Acute Assessment and Plan: * Secondary to indwelling Cavanaugh catheter. * He has been started on cefepime, culture as above * Empiric vancomycin, pending urine culture. (3) Acute kidney injury: Code(s): N17.9 - Acute kidney failure, unspecified Status: Acute Assessment and Plan: * Likely multifactorial in etiology. He appears quite dry on exam and it sounds as though his Cavanaugh catheter was not draining well due to pus in the urine, and thus there may be a component of postobstructive uropathy. * Cavanaugh catheter has been changed and will monitor strict I/O. * Creatinine is down to 4.6 today * Renal ultrasound no obstruction and CK is elevated also and fell to 812 today * Third spacing with pancreatitis could be an etiology also * (4) Type 2 diabetes mellitus: Code(s): E11.9 - Type 2 diabetes mellitus without complications Status: Acute Assessment and Plan: * According to his sister, he has been diagnosed with diabetes but has never been started on oral medication. * For the time being he will be on sliding scale insulin and hemoglobin A1c 7.3 (5) Essential hypertension: Code(s): I10 - Essential (primary) hypertension Status: Acute Assessment and Plan: * Antihypertensives are on hold given sepsis and relative hypotension. (6) Acute respiratory failure with hypoxia: Code(s): J96.01 - Acute respiratory failure with hypoxia Status: Acute Assessment and Plan: * Chest x-ray is really unremarkable and he is negative for COVID-19. * Repeat chest x-ray 03/20 no real change. * Pulmonary embolism is a consideration but due to his kidney failure he is unable to have contrast. Due to profound uremia, with the elevated D-dimer V/Q scan was intermediate probability and started on IV heparin * If renal status improves enough possible CTA of the chest before commit to long-term anticoagulation * venous Doppler ultrasounds of right upper extremity and left lower extremity are negative for DVT * He will be NPO for now for pancreatitis and swallow test today looked to be okay but speech recommended modified swallow with (7) Abdominal pain: Code(s): R10.9 - Unspecified abdominal pain Status: Acute Assessment and Plan: * Lipase of [address] scan acute pancreatitis on admission. Lipase today 1477 . Continue a
--- NOTE | 2020-03-21 13:39 | PM.IMPN ---
Progress Note: A&P Assessment and Plan (1) Severe sepsis: Code(s): A41.9 - Sepsis, unspecified organism; R65.20 - Severe sepsis without septic shock Status: Acute Assessment and Plan: Present on admission and supported by hypotension, fever, leukocytosis, elevated lactic acid, and acute kidney injury. Lactic acid level has normalized with IV fluid rehydration and blood pressures have improved somewhat without pressors will continue aggressive hydration. Central line placed in the ED though he has not required vasopressors with a MAP consistently above 65. Sepsis presumably due to urinary tract infection(urine only [id number] colonies) however given his abdominal exam, and/or pancreatitis 1/2 BC+ for gram + cocci. (2) Complicated urinary tract infection: Code(s): N39.0 - Urinary tract infection, site not specified Status: Acute Assessment and Plan: Secondary to indwelling Cavanaugh catheter. He has been started on cefepime, culture as above Empiric vancomycin, pending urine culture. (3) Acute kidney injury: Code(s): N17.9 - Acute kidney failure, unspecified Status: Acute Assessment and Plan: Likely multifactorial in etiology. He appears quite dry on exam and it sounds as though his Cavanaugh catheter was not draining well due to pus in the urine, and thus there may be a component of postobstructive uropathy. Cavanaugh catheter has been changed and will monitor strict I/O. Creatinine is down to 4.6 today Renal ultrasound no obstruction and CK is elevated also and fell to 812 today Third spacing with pancreatitis could be an etiology also (4) Type 2 diabetes mellitus: Code(s): E11.9 - Type 2 diabetes mellitus without complications Status: Acute Assessment and Plan: According to his sister, he has been diagnosed with diabetes but has never been started on oral medication. For the time being he will be on sliding scale insulin and hemoglobin A1c 7.3 (5) Essential hypertension: Code(s): I10 - Essential (primary) hypertension Status: Acute Assessment and Plan: Antihypertensives are on hold given sepsis and relative hypotension. (6) Acute respiratory failure with hypoxia: Code(s): J96.01 - Acute respiratory failure with hypoxia Status: Acute Assessment and Plan: Chest x-ray is really unremarkable and he is negative for COVID-19. Repeat chest x-ray 03/20 no real change. Pulmonary embolism is a consideration but due to his kidney failure he is unable to have contrast. Due to profound uremia, with the elevated D-dimer V/Q scan was intermediate probability and started on IV heparin If renal status improves enough possible CTA of the chest before commit to long-term anticoagulation venous Doppler ultrasounds of right upper extremity and left lower extremity are negative for DVT He will be NPO for now for pancreatitis and swallow test today looked to be okay but speech recommended modified swallow with (7) Abdominal pain: Code(s): R10.9 - Unspecified abdominal pain Status: Acute Assessment and Plan: Lipase of [address] scan acute pancreatitis on admission. Lipase today 1477 . Continue aggressive hydration pain control and follow lipase with LFTs. Still n. p.o. with the pancreatitis no gallstones and tryglycerides normal. (8) Iron deficiency anemia: Code(s): D50.9 - Iron deficiency anemia, unspecified Status: Acute Assessment and Plan: History of iron deficiency anemia. FE and TIBC both low compatible with chronic
[2020-03-21 14:00] VITALS: BP 123/68; PULSE 102; RESP 16; TEMP 37.3; O2SAT 100
[2020-03-21 14:21] LABS: IFOB Positive Control Positive; Immunochemical Fecal Occult Bl Positive (N)
[2020-03-21 16:01] LABS: Hematocrit 24.7 % (42.0-52.0); Hemoglobin 7.8 g/dL (14.0-18.0); Mean Corpuscular HGB Conc 31.6 g/dl (32-36); Mean Corpuscular Hemoglobin 23.9 pg (26-34); Mean Corpuscular Volume 75.5 fl (80-100); Platelet Count Result 333 k/mm3 (150-375); Red Blood Count 3.27 M/mm3 (4.6-6.20); Red Cell Distribution Width 17.7 % (11.5-14.5); White Blood Count 21.1 K/mm3 (4.5-10.0)
[2020-03-21] MEDS: PANTOPRAZOLE SODIUM IV 40 MG VIAL IV PUSH ×2 (17:58→21:18)
[2020-03-21 18:33] LABS: Glucose Point of Care 113 (65-105)
[2020-03-21 22:00] VITALS: BP 109/67; PULSE 95; RESP 20; TEMP 37.2; O2SAT 97
[2020-03-21 22:57] LABS: Alveolar/Arterial O2 Gradient 62.5 mmHg; Base Excess ABG -1.2 mEq/l (+/-2.0); Device NASAL CANNULA; Fractional Inspired Oxygen 24 %; HCO3 ABG 21.8 mEq/l (22.0-26.0); Modified Allen's Test Pass; Oxygen Content ABG 11.9 %vol (16.0-22.0); Oxygen Saturation ABG 95.8 % (95.0-100.0); Oxyhemoglobin 93.4 % THb (90.0-100.0); PCO2 ABG 30.1 mmHg (35.0-45.0); PO2 ABG 72.8 mmHg (80.0-100.0); PO2 FiO2 Ratio Arterial Blood 3.03 %; Site Drawn LEFT RADIAL; pH ABG 7.478 (7.350-7.450)
[2020-03-22] VITALS (10 sets, daily range): BP systolic 126–143; BP diastolic 72–79; PULSE 80–105; RESP 18–20; TEMP 36.8–37.3; O2SAT 94–99
[2020-03-22 04:06] LABS: Glucose Point of Care 103 (65-105)
[2020-03-22 05:22] LABS: Basophils Percent Auto 0.2 % (0.2-1.2); Eosinophils Absolute Auto 0.1 K/mm3 (0-0.3); Eosinophils Percent Auto 0.4 % (0-4.4); Hematocrit 23.2 % (42.0-52.0); Hemoglobin 7.2 g/dL (14.0-18.0); Immature Granulocyte Absolute 0.23 K/mm3 (0.00-0.031); Immature Granulocyte Percent A 1.2 % (0-0.5); Lymphocytes Absolute Auto 0.85 K/mm3 (0.9-3.2); Lymphocytes Percent Auto 4.6 % (18.3-44.2); Mean Corpuscular Hemoglobin 23.6 pg (26-34); Mean Corpuscular Volume 76.1 fl (80-100); Mean Platelet Volume 10.3 fl (7.4-10.4); Monocytes Absolute Auto 0.5 K/mm3 (0.1-0.6); Monocytes Percent Auto 2.7 % (2.6-8.5); Neutrophils Absolute Auto 16.9 K/mm3 (1.3-6.7); Neutrophils Percent Auto 90.9 % (45.5-73.1); Platelet Count Result 346 k/mm3 (150-375); Red Blood Count 3.05 M/mm3 (4.6-6.20); Red Cell Distribution Width 17.7 % (11.5-14.5); White Blood Count 18.6 K/mm3 (4.5-10.0)
[2020-03-22] MEDS: metroNIDAZOLE 500 MG/ISO 100ML 500 MG/100 ML BAG 100 MG IVPB ×3 (05:24→22:30)
[2020-03-22 05:33] LABS: Alanine Aminotransferase 22 U/L (4-50); Albumin Level 3.1 g/dL (3.5-5.1); Alkaline Phosphatase 160 U/L (38-126); Aspartate Amino Transferase 41 U/L (17-59); Bilirubin,Total 0.6 mg/dL (0.2-1.3); Blood Urea Nitrogen 73 mg/dL (9-20); Carbon Dioxide 25 mmol/L (22-30); Chloride 103 mmol/L (98-107); Estimated CRCL calculation 19 ml/min; Estimated Glomerular Filt Rate 22; Glucose 116 mg/dL (75-110); Lipase 767 U/L (23-300); Magnesium 1.8 mg/dL (1.6-2.3); Phosphorus 3.8 mg/dL (2.5-4.5); Potassium 3.4 mmol/L (3.4-5.0); Sodium 137 mmol/L (137-145)
[2020-03-22 05:39] LABS: Creatine Kinase 371 U/L (55-170)
[2020-03-22 06:39] LABS: Glucose Point of Care 113 (65-105)
[2020-03-22] MEDS: PANTOPRAZOLE SODIUM IV 40 MG VIAL IV PUSH ×2 (09:20→20:39)
[2020-03-22] MEDS: ALBUTEROL SULFATE NEB 2.5 MG/0.5 ML INH 5 MG INHALATION ×2 (13:55→20:06)
[2020-03-22] MEDS: IPRATROPIUM BR 0.02% INH SOLN 0.5 MG/2.5 ML VIAL INHALATION ×2 (13:55→20:06)
--- NOTE | 2020-03-22 14:24 | P.PNIM_ITS ---
Progress Note: A&P Assessment and Plan (1) Severe sepsis: Code(s): A41.9 - Sepsis, unspecified organism; R65.20 - Severe sepsis without septic shock Status: Acute Assessment and Plan: * Present on admission and supported by hypotension, fever, leukocytosis, elevated lactic acid, and acute kidney injury. * Lactic acid level has normalized with IV fluid rehydration and blood pressures have improved somewhat without pressors will continue aggressive hydration. * Central line placed in the ED though he did not required vasopressors with a MAP consistently above 65. * Sepsis presumably due to urinary tract infection(urine only [id number] colonies) however given his abdominal exam, and/or pancreatitis * 1/2 BC+ for staph epi probable contaminant (2) Complicated urinary tract infection: Code(s): N39.0 - Urinary tract infection, site not specified Status: Acute Assessment and Plan: * Secondary to indwelling Cavanaugh catheter. * on cefepime, culture as above * Empiric vancomycin, and with cultures neg will d/c. (3) Acute kidney injury: Code(s): N17.9 - Acute kidney failure, unspecified Status: Acute Assessment and Plan: * Likely multifactorial in etiology. He appears quite dry on exam on admission and it sounds as though his Cavanaugh catheter was not draining well due to pus in the urine, and thus there may be a component of postobstructive uropathy. * Cavanaugh catheter was changed and will monitor strict I/O. * Creatinine is down to 3.5 today * Renal ultrasound no obstruction and CK is elevated also and fell to 371 today * Third spacing with pancreatitis could be an etiology also * with cpk down and co2 up change IV from [place]3 to NS (4) Type 2 diabetes mellitus: Code(s): E11.9 - Type 2 diabetes mellitus without complications Status: Acute Assessment and Plan: * According to his sister, he has been diagnosed with diabetes but has never been started on oral medication. * For the time being he will be on sliding scale insulin and hemoglobin A1c 7.3 (5) Essential hypertension: Code(s): I10 - Essential (primary) hypertension Status: Acute Assessment and Plan: * Antihypertensives are on hold given sepsis and relative hypotension. (6) Acute respiratory failure with hypoxia: Code(s): J96.01 - Acute respiratory failure with hypoxia Status: Acute Assessment and Plan: * Chest x-ray is really unremarkable and he is negative for COVID-19. * Repeat chest x-ray 03/20 no real change. * Pulmonary embolism is a consideration but due to his kidney failure he is unable to have contrast. Due to profound uremia, with the elevated D-dimer V/Q scan was intermediate probability and started on IV heparin that was stopped 73 due to falling hgb and occult blood in stool * If renal status improves enough possible CTA of the chest before commit to long-term anticoagulation * venous Doppler ultrasounds of right upper extremity and left lower extremity are negative for DVT * He will be NPO for now for pancreatitis and bedside swallow test looked to be okay but speech recommended modified swallow (7) Abdominal pain: Code(s): R10.9 - Unspecified abdominal pain Status: Acute
--- NOTE | 2020-03-22 14:24 | PM.IMPN ---
Progress Note: A&P Assessment and Plan (1) Severe sepsis: Code(s): A41.9 - Sepsis, unspecified organism; R65.20 - Severe sepsis without septic shock Status: Acute Assessment and Plan: Present on admission and supported by hypotension, fever, leukocytosis, elevated lactic acid, and acute kidney injury. Lactic acid level has normalized with IV fluid rehydration and blood pressures have improved somewhat without pressors will continue aggressive hydration. Central line placed in the ED though he did not required vasopressors with a MAP consistently above 65. Sepsis presumably due to urinary tract infection(urine only [id number] colonies) however given his abdominal exam, and/or pancreatitis 1/2 BC+ for staph epi probable contaminant (2) Complicated urinary tract infection: Code(s): N39.0 - Urinary tract infection, site not specified Status: Acute Assessment and Plan: Secondary to indwelling Cavanaugh catheter. on cefepime, culture as above Empiric vancomycin, and with cultures neg will d/c. (3) Acute kidney injury: Code(s): N17.9 - Acute kidney failure, unspecified Status: Acute Assessment and Plan: Likely multifactorial in etiology. He appears quite dry on exam on admission and it sounds as though his Cavanaugh catheter was not draining well due to pus in the urine, and thus there may be a component of postobstructive uropathy. Cavanaugh catheter was changed and will monitor strict I/O. Creatinine is down to 3.5 today Renal ultrasound no obstruction and CK is elevated also and fell to 371 today Third spacing with pancreatitis could be an etiology also with cpk down and co2 up change IV from [place]3 to NS (4) Type 2 diabetes mellitus: Code(s): E11.9 - Type 2 diabetes mellitus without complications Status: Acute Assessment and Plan: According to his sister, he has been diagnosed with diabetes but has never been started on oral medication. For the time being he will be on sliding scale insulin and hemoglobin A1c 7.3 (5) Essential hypertension: Code(s): I10 - Essential (primary) hypertension Status: Acute Assessment and Plan: Antihypertensives are on hold given sepsis and relative hypotension. (6) Acute respiratory failure with hypoxia: Code(s): J96.01 - Acute respiratory failure with hypoxia Status: Acute Assessment and Plan: Chest x-ray is really unremarkable and he is negative for COVID-19. Repeat chest x-ray 03/20 no real change. Pulmonary embolism is a consideration but due to his kidney failure he is unable to have contrast. Due to profound uremia, with the elevated D-dimer V/Q scan was intermediate probability and started on IV heparin that was stopped 73 due to falling hgb and occult blood in stool If renal status improves enough possible CTA of the chest before commit to long-term anticoagulation venous Doppler ultrasounds of right upper extremity and left lower extremity are negative for DVT He will be NPO for now for pancreatitis and bedside swallow test looked to be okay but speech recommended modified swallow (7) Abdominal pain: Code(s): R10.9 - Unspecified abdominal pain Status: Acute Assessment and Plan: Lipase of [address] scan acute pancreatitis on admission. Lipase today 371 . Continue aggressive hydration pain control and follow lipase with LFTs. Still n. p.o. with the pancreatitis no gallstones and tryglycerides normal. (8) Iron deficiency anemia: Code(s): D50.9 - Iron deficiency anemia, unspecified
[2020-03-22] MEDS: SODIUM CHLORIDE 0.9% IV 1,000 ML 150 ML IV CONT ×2 (15:34→20:39)
[2020-03-22 15:57] LABS: Glucose Point of Care 141 (65-105)
[2020-03-22 18:48] LABS: Glucose Point of Care 108 (65-105)
[2020-03-23] VITALS (23 sets, daily range): BP systolic 133–166; BP diastolic 66–95; PULSE 85–97; RESP 16–20; TEMP 37–37.3; O2SAT 94–100
[2020-03-23 00:59] LABS: Glucose Point of Care 136 (65-105)
[2020-03-23] MEDS: IPRATROPIUM BR 0.02% INH SOLN 0.5 MG/2.5 ML VIAL INHALATION ×3 (01:56→19:39)
[2020-03-23] MEDS: ALBUTEROL SULFATE NEB 2.5 MG/0.5 ML INH 5 MG INHALATION ×4 (01:56→19:39)
[2020-03-23] MEDS: metroNIDAZOLE 500 MG/ISO 100ML 500 MG/100 ML BAG 100 MG IVPB ×3 (06:11→22:03)
[2020-03-23 06:25] LABS: Glucose Point of Care 111 (65-105)
[2020-03-23 06:32] LABS: Basophils Percent Auto 0.2 % (0.2-1.2); Eosinophils Absolute Auto 0.1 K/mm3 (0-0.3); Eosinophils Percent Auto 1.1 % (0-4.4); Hematocrit 23.2 % (42.0-52.0); Immature Granulocyte Absolute 0.13 K/mm3 (0.00-0.031); Lymphocytes Absolute Auto 0.67 K/mm3 (0.9-3.2); Lymphocytes Percent Auto 5.2 % (18.3-44.2); Mean Corpuscular HGB Conc 29.3 g/dl (32-36); Mean Corpuscular Hemoglobin 23.1 pg (26-34); Mean Corpuscular Volume 78.9 fl (80-100); Mean Platelet Volume 10.7 fl (7.4-10.4); Monocytes Absolute Auto 0.5 K/mm3 (0.1-0.6); Monocytes Percent Auto 4.1 % (2.6-8.5); Neutrophils Absolute Auto 11.4 K/mm3 (1.3-6.7); Neutrophils Percent Auto 88.4 % (45.5-73.1); Platelet Count Result 346 k/mm3 (150-375); Red Blood Count 2.94 M/mm3 (4.6-6.20); Red Cell Distribution Width 17.9 % (11.5-14.5); White Blood Count 12.9 K/mm3 (4.5-10.0)
[2020-03-23 06:48] LABS: Alanine Aminotransferase 19 U/L (4-50); Albumin Level 2.9 g/dL (3.5-5.1); Alkaline Phosphatase 153 U/L (38-126); Aspartate Amino Transferase 30 U/L (17-59); Bilirubin,Total 0.4 mg/dL (0.2-1.3); Blood Urea Nitrogen 55 mg/dL (9-20); Calcium 8.1 mg/dL (8.4-10.2); Carbon Dioxide 25 mmol/L (22-30); Chloride 108 mmol/L (98-107); Creatine Kinase 154 U/L (55-170); Estimated CRCL calculation 28 ml/min; Estimated Glomerular Filt Rate 35; Glucose 126 mg/dL (75-110); Lipase 802 U/L (23-300); Phosphorus 3.8 mg/dL (2.5-4.5); Potassium 3.8 mmol/L (3.4-5.0); Sodium 142 mmol/L (137-145)
[2020-03-23 07:32] LABS: Hemoglobin 6.8 g/dL (14.0-18.0)
[2020-03-23] MEDS: PANTOPRAZOLE SODIUM IV 40 MG VIAL IV PUSH ×2 (09:40→20:09)
--- NOTE | 2020-03-23 10:32 | WPDGICN ---
Assessment and Plan Assessment and plan (1) Acute blood loss anemia: Code(s): D62 - Acute posthemorrhagic anemia <Glenda Harrison APRN - Last Filed: 03/23/20 10:48> Status: Acute <Glenda Harrison APRN - Last Filed: 03/23/20 10:48> Assessment and Plan: Concerned for GI bleed. Source unknown at the point. Will need to assess for PUD and AVM for worsening drop in hemoglobin and dark stools -EGD today with Dr. Rosario, PPI BID, keep NPO -Patient may eventually need repeat colonoscopy -1 unit of blood has been ordered by hospitalist. Continue to monitor and transfuse as needed -Hold anticoagulants, which does not appear he is on any at this time <Glenda Harrison APRN - Last Filed: 03/23/20 10:48> (2) Iron deficiency anemia: Code(s): D50.9 - Iron deficiency anemia, unspecified <Glenda Harrison APRN - Last Filed: 03/23/20 10:48> Status: Acute <Glenda Harrison APRN - Last Filed: 03/23/20 10:48> Assessment and Plan: This is most likely chronic Replace iron <Glenda Harrison APRN - Last Filed: 03/23/20 10:48> (3) Acute pancreatitis: Code(s): K85.90 - Acute pancreatitis without necrosis or infection, unspecified <Glenda Harrison APRN - Last Filed: 03/23/20 10:48> Status: Acute <Glenda Harrison APRN - Last Filed: 03/23/20 10:48> Assessment and Plan: This could be secondary to hx of heavy ETOH use. Will continue to monitor. Supportive tx Triglycerides are normal and no evidence of gallstones <Glenda Harrison APRN - Last Filed: 03/23/20 10:48> (4) Liver mass: Code(s): R16.0 - Hepatomegaly, not elsewhere classified <Glenda Harrison APRN - Last Filed: 03/23/20 10:48> Status: Acute <Glenda Harrison APRN - Last Filed: 03/23/20 10:48> Assessment and Plan: Concerns for possible hemangioma on imaging. This can be followed outpatient with contrast MRI once kidneys improve <Glenda Harrison APRN - Last Filed: 03/23/20 10:48> Additional Plan I have personally seen and examined this patient and agree with the above note. Feels better. VSS soft/NT Assessment and Plan: EGD today. Further recommendations to follow. [facility] [phone] <Lj Rosario MD - Last Filed: 03/23/20 19:35> GI Consult Note Consult date/time: 03/23/20 10:32 <Glenda Harrison APRN - Last Filed: 03/23/20 10:48> HPI: Maynor Inman is a 59 year old male asked to be seen for worsening anemia concerning for upper GI bleed. He was admitted for sepsis with positive blood cultures and being tx with IV vancomyocin and flagyl. 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 Hx was limited and most obtained from HPI and nursing staff. Hgb on admission was 10 and has dropped as of this AM to 6.8. He will be receiving 1 unit of blood. +occult stool was documented and nursing staff said he had a large dark stool with a red ring. Iron 15, iron sat 8%, ferritin 317. He was started on heparin IV on admission due to possible concerns for PE but heparin has been since d/c due to drop in Hgb and no further concerns for PE- He was on no other blood thinners at home besides ASA 81 mg. Denies nausea, vomiting, hemetemesis, dysphagia or odynophagia. It does appear he has FELIX at baseline as he was on ferrous sulfate He was found on CT imaging to have acute pancreatitis with elevated lipase, it also showed 2.7X1.7X2.2 mass on liver concerning for possible hemangioma but could not be evaulated as no contrast was used. Abd us showed no gallstones. Triglycerides were normal. LFT normal AST 30, ALT 17, Alk phos 150, T b 0.4. Per nursing staff his sister reported he had a colonoscopy around 7 months ago and was normal . Unsure if patient has ever had an EGD. Per HPI it appears he used to be a heavy drinker . <Glenda Harrison, ADMISSIONS DEAN - Last Filed: 03/23/20 10:48> Review of Systems Review of Systems: All systems reviewed
[2020-03-23] MEDS: TUBING, BLOOD PLUM PUMP TUBING 1 EACH XX (12:04)
[2020-03-23] MEDS: SODIUM CHLORIDE 0.9% IV 250 ML 30 ML IV CONT (12:04)
--- NOTE | 2020-03-23 12:30 | PCSTNOTE ---
Modified Barium Swallow This pt was seen for a Modified Barium Swallow following an inconclusive Bedside Swallow Evaluation. The pt has a history of CVA and aphasia and is unable to follow directions for swallow precautions/modifications. He was seated upright and given trials of thin and extremely thick liquid and solids. During the oral stage, reduced lingual motion was noted as evidenced by delayed oral transit. During the pharyngeal stage with thin, extremely thick, and solid trials, reduced laryngeal elevation was evidenced by penetration during the swallow. Reduced laryngeal closure was evidenced by aspiration after the swallow. Material entered the airway past the level of the vocal folds and was not ejected despite effort. The cricopharyngeal stage was within functional limits. Overall, penetration occurred during the swallow and mild aspiration occurred after the swallow. Laryngeal sensitivity was evidenced by throat clearing and coughing, which was not effective. No precautions/modifications could be attempted due to the pt's inability to follow directions. It is recommended for the pt to receive a non-oral diet (NPO) except for therapeutic feedings with speech therapy. Therapy should focus on the following: -ability to follow directions -effortful swallow -laryngeal elevation exercises -laryngeal adduction exercises
[2020-03-23 12:45] LABS: Glucose Point of Care 135 (65-105)
--- NOTE | 2020-03-23 15:06 | P.PNIM_ITS ---
Progress Note: A&P Assessment and Plan (1) Severe sepsis: Code(s): A41.9 - Sepsis, unspecified organism; R65.20 - Severe sepsis without septic shock Status: Acute Assessment and Plan: * Present on admission and supported by hypotension, fever, leukocytosis, elevated lactic acid, and acute kidney injury. * Lactic acid level has normalized with IV fluid rehydration and blood pressures improved without pressors will continue hydration. * Central line placed in the ED though he did not required vasopressors with a MAP consistently above 65. * Sepsis presumably due to urinary tract infection(urine only [id number] colonies) however given his abdominal exam, and/or pancreatitis * / BC+ for staph epi probable contaminant (2) Complicated urinary tract infection: Code(s): N39.0 - Urinary tract infection, site not specified Status: Acute Assessment and Plan: * Secondary to indwelling Cavanaugh catheter. * on cefepime, culture as above * Empiric vancomycin, and with cultures neg d/hanna. (3) Acute kidney injury: Code(s): N17.9 - Acute kidney failure, unspecified Status: Acute Assessment and Plan: * Likely multifactorial in etiology. He appears quite dry on exam on admission and it sounds as though his Cavanaugh catheter was not draining well due to pus in the urine, and thus there may be a component of postobstructive uropathy. * Cavanaugh catheter was changed and will monitor strict I/O. * Creatinine is down to 2.3 today from 7.4 * Renal ultrasound no obstruction and CK is elevated also and fell to 154 today * Third spacing with pancreatitis could be an etiology also * with cpk down and co2 up change IV from Nahco3 to NS 03/22 (4) Type 2 diabetes mellitus: Code(s): E11.9 - Type 2 diabetes mellitus without complications Status: Acute Assessment and Plan: * According to his sister, he has been diagnosed with diabetes but has never been started on oral medication. * For the time being he will be on sliding scale insulin and hemoglobin A1c 7.3 (5) Essential hypertension: Code(s): I10 - Essential (primary) hypertension Status: Acute Assessment and Plan: * Antihypertensives were held with hypotension initially . BP and pulse up more today so start IV metoprolol. (6) Acute respiratory failure with hypoxia: Code(s): J96.01 - Acute respiratory failure with hypoxia Status: Acute Assessment and Plan: * Chest x-ray is really unremarkable and he is negative for COVID-19. * Repeat chest x-ray 03/20 no real change. * Pulmonary embolism is a consideration . Due to profound uremia, with the elevated D-dimer V/Q scan was intermediate probability and started on IV heparin that was stopped 03/21 due to falling hgb and occult blood in stool * If renal status improves enough possible CTA of the chest before commit to long-term anticoagulation * venous Doppler ultrasounds of right upper extremity and left lower extremity are negative for DVT * He will be NPO for now for pancreatitis and bedside swallow test looked to be okay but speech recommended modified swallow (7) Abdominal pain: Code(s): R10.9 - Unspecified abdominal pain Status: Acute Assessment and Plan:
--- NOTE | 2020-03-23 15:06 | PM.IMPN ---
Progress Note: A&P Assessment and Plan (1) Severe sepsis: Code(s): A41.9 - Sepsis, unspecified organism; R65.20 - Severe sepsis without septic shock Status: Acute Assessment and Plan: Present on admission and supported by hypotension, fever, leukocytosis, elevated lactic acid, and acute kidney injury. Lactic acid level has normalized with IV fluid rehydration and blood pressures improved without pressors will continue hydration. Central line placed in the ED though he did not required vasopressors with a MAP consistently above 65. Sepsis presumably due to urinary tract infection(urine only [id number] colonies) however given his abdominal exam, and/or pancreatitis 1/ BC+ for staph epi probable contaminant (2) Complicated urinary tract infection: Code(s): N39.0 - Urinary tract infection, site not specified Status: Acute Assessment and Plan: Secondary to indwelling Cavanaugh catheter. on cefepime, culture as above Empiric vancomycin, and with cultures neg d/hanna. (3) Acute kidney injury: Code(s): N17.9 - Acute kidney failure, unspecified Status: Acute Assessment and Plan: Likely multifactorial in etiology. He appears quite dry on exam on admission and it sounds as though his Cavanaugh catheter was not draining well due to pus in the urine, and thus there may be a component of postobstructive uropathy. Cavanaugh catheter was changed and will monitor strict I/O. Creatinine is down to 2.3 today from 7.4 Renal ultrasound no obstruction and CK is elevated also and fell to 154 today Third spacing with pancreatitis could be an etiology also with cpk down and co2 up change IV from Nahco3 to NS 03/22 (4) Type 2 diabetes mellitus: Code(s): E11.9 - Type 2 diabetes mellitus without complications Status: Acute Assessment and Plan: According to his sister, he has been diagnosed with diabetes but has never been started on oral medication. For the time being he will be on sliding scale insulin and hemoglobin A1c 7.3 (5) Essential hypertension: Code(s): I10 - Essential (primary) hypertension Status: Acute Assessment and Plan: Antihypertensives were held with hypotension initially . BP and pulse up more today so start IV metoprolol. (6) Acute respiratory failure with hypoxia: Code(s): J96.01 - Acute respiratory failure with hypoxia Status: Acute Assessment and Plan: Chest x-ray is really unremarkable and he is negative for COVID-19. Repeat chest x-ray 03/20 no real change. Pulmonary embolism is a consideration . Due to profound uremia, with the elevated D-dimer V/Q scan was intermediate probability and started on IV heparin that was stopped 03/21 due to falling hgb and occult blood in stool If renal status improves enough possible CTA of the chest before commit to long-term anticoagulation venous Doppler ultrasounds of right upper extremity and left lower extremity are negative for DVT He will be NPO for now for pancreatitis and bedside swallow test looked to be okay but speech recommended modified swallow (7) Abdominal pain: Code(s): R10.9 - Unspecified abdominal pain Status: Acute Assessment and Plan: Lipase of [address] scan acute pancreatitis on admission. Lipase today 802 . Continue hydration pain control and follow lipase with LFTs. Still n. p.o. with the pancreatitis no gallstones and tryglycerides normal. (8) Iron deficiency anemia: Code(s): D50.9 - Iron deficiency anemia, unspecified Status: Acute Assessment and P
[2020-03-23] MEDS: METOPROLOL TARTRATE INJ 5 MG/5 ML VIAL IV PUSH ×2 (17:26→20:09)
[2020-03-23 17:29] LABS: Hematocrit 26.7 % (42.0-52.0); Hemoglobin 8.2 g/dL (14.0-18.0); Mean Corpuscular HGB Conc 30.7 g/dl (32-36); Mean Corpuscular Hemoglobin 24.9 pg (26-34); Mean Corpuscular Volume 81.2 fl (80-100); Mean Platelet Volume 9.8 fl (7.4-10.4); Platelet Count Result 331 k/mm3 (150-375); Red Blood Count 3.29 M/mm3 (4.6-6.20); Red Cell Distribution Width 18.7 % (11.5-14.5); White Blood Count 13.2 K/mm3 (4.5-10.0)
--- NOTE | 2020-03-23 17:35 | WPDANESEPP ---
Anes - Eval Pre Procedure Procedure: Operation Date: 03/23/20 17:20 Proposed Procedures p Esophagogastroduodenoscopy - Lj Rosario MD Date/Time: 03/23/20 17:35 Pre Op Diagnosis: Fever and hypoxia. Patient Data Age: 59 Gender: M Height: 1.83 m Weight: 63.4 kg Last Vital Signs Temp 37.3 C 03/23/20 14:14 Pulse 97 03/23/20 14:14 Resp 20 03/23/20 14:14 BP 161/75 H 03/23/20 14:14 Pulse Ox 96 03/23/20 14:14 Allergies Allergy/AdvReac Type Severity Reaction Status Date / Time Penicillins Allergy Unknown Verified 03/19/20 06:50 Home Medications Medication Instructions Recorded Confirmed Type acetaminophen [Tylenol Extra 500 mg PO Q6H PRN 03/19/20 03/19/20 History Strength] amlodipine 10 mg PO DAILY 03/19/20 03/19/20 History aspirin 81 mg PO DAILY 03/19/20 03/19/20 History atorvastatin 80 mg PO HS 03/19/20 03/19/20 History ferrous sulfate 325 mg PO EVERY OTHER DAY 03/19/20 03/19/20 History gabapentin 400 mg PO TID 03/19/20 03/19/20 History metoprolol succinate 100 mg PO DAILY 03/19/20 03/19/20 History oxycodone 10 mg PO Q4H PRN 03/19/20 03/19/20 History polyethylene glycol 3350 17 g PO DAILY 03/19/20 03/19/20 History silver sulfadiazine [Silvadene] 1 applic TOPICAL Q12H 03/19/20 03/19/20 History tamsulosin 0.8 mg PO HS 03/19/20 03/19/20 History Laboratory Tests 03/21/20 03/22/20 03/23/20 15:52 18:46 00:54 WBC RBC Hgb Hct MCV MCH MCHC RDW Plt Count MPV Immature Gran % (Auto) Neut % (Auto) Lymph % (Auto) [place] % (Auto) Eos % (Auto) Baso % (Auto) Lymph # (Auto) [place] # (Auto) Eos # (Auto) Baso # (Auto) Abs Immat Gran (auto) Absolute Neuts (auto) Absolute Nucleated RBC Nucleated RBC % Sodium Potassium Chloride Carbon Dioxide BUN Creatinine Estim Creat Clear Calc Estimated GFR Glucose POC Capillary Glucose 108 mg/dl mg/dl 136 mg/dl H mg/dl (65-105) (65-105) Calcium Phosphorus Total Bilirubin Direct Bilirubin AST ALT Alkaline Phosphatase Total Creatine Kinase Total Protein Albumin Lipase Blood Type A Positive Antibody Screen Negative Crossmatch See Detail 03/23/20 03/23/20 03/23/20 06:10 06:23 06:23 WBC 12.9 K/mm3 H K/mm3 (4.5-10.0) RBC 2.94 M/mm3 L M/mm3 (4.6-6.20) Hgb 6.8 g/dL L* g/dL (14.0-18.0) Hct 23.2 % L % (42.0-52.0) MCV 78.9 fl L fl (80-100) MCH 23.1 pg L pg (26-34) MCHC 29.3 g/dl L g/dl (32-36) RDW 17.9 % H % (11.5-14.5) Plt Count 346 k/mm3 k/mm3 (150-375) MPV 10.7 fl H fl (7.4-10.4) Immature Gran % (Auto) 1.0 % H % (0-0.5) Neut % (Auto) 88.4 % H % (45.5-73.1) Lymph % (Auto) 5.2 % L % (18.3-44.2) Potter % (Auto) 4.1 % % (2.6-8.5) Eos % (Auto) 1.1 % % (0-4.4) Baso % (Auto) 0.2 % % (0.2-1.2) Lymph # (Auto) 0.67 K/mm3 L K/mm3 (0.9-3.2) Potter # (Auto) 0.5 K/mm3 K/mm3 (0.1-0.6) Eos # (Auto) 0.1 K/mm3 K/mm3 (0-0.3) Baso # (Auto) 0.0 K/mm3 K/mm3 (0.0-0.1) Abs Immat Gran (auto) 0.13 K/mm3 H K/mm3 (0.00-0.031) Absolute Neuts (auto) 11.4 K/mm3 H K/mm3 (1.3-6.7) Absolute Nucleated RBC 0.0 K/mm3 K/mm3 (0.0-0.012) Nucleated RBC % 0.0 % % (0.0-0.2) Sodium 142 mmol/L mmol/L (137-145) Potassium 3.8 mmol/L
--- NOTE | 2020-03-23 17:51 | WPDANESEFPP ---
Anes - Eval Final PreProcedure Day of Procedure 03/23/20 17:51 Patient weight: normal Heart: regular rate and rhythm Lungs: clear to auscultation and normal air movement Airway: Mallampati scale class II Last oral intake: >/= 8 hours ASA classification: IV Emergent: no Anesthetic plan: proceed Anesthesia type and monitoring: general GIVS Informed Consent: The patient's anesthetic plan and its attendant risks and benefits were discussed with the patient/family/POA. Questions were solicited and answers provided to the satisfaction of the patient/family/POA.
--- NOTE | 2020-03-23 18:42 | PC.NURSE ---
Patient taken to GI lab at 1840 for EGD.
[2020-03-23] MEDS: LACTATED RINGERS 1,000 ML 100 ML IV CONT (18:45)
--- NOTE | 2020-03-23 19:04 | PM.OP ---
Procedure Note - Brief Procedure Note - Brief Date of procedure: 03/23/20 Pre-op diagnosis: Fever and hypoxia. Acute blood loss anemia, melena Procedure performed: EGD Anesthesia: MAC Surgeon: Lj Rosario MD Estimated blood loss (mL): 0 Pathology: none sent Complications: No immediate complications Condition: stable Disposition: floor Findings: INDICATION: Acute blood loss anemia, melena, heme positive. POST-OP: Gastric and duodenal ulcers. Biopsy for MATTIE done. SEDATION: Per anesthesia With the patient in the left lateral decubitus position, the [employer] upper endoscope was used to easily intubate the patient?s esophagus and advanced to the third portion of the duodenum. Careful inspection of the mucosa was made upon insertion and withdrawal of the endoscope with retroflexion in the stomach. FINDINGS: Esophagus: SC Jx at 40 cm. Esophagus is normal. No esophagitis, stricture, mass or Nelson?s. Stomach: Fundus, body and antrum with diffuse ulceration, erythema and edema consistent with chronic, ulcerative gastritis. Biopsies taken throughout the stomach. No AVM or malignancy. Duodenum: Many white-based and benign appearing ulcers in the bulb, second and third portion. No complications, blood loss or implants. ASSESSMENT AND PLAN: A. Acute blood loss anemia, melena, heme positive stool on aspirin: - Gastric and duodenal ulcers on EGD - BID PPI IV - Biopsies done; if H. pylori positive will treat - Repeat EGD in 8-10 weeks B. Dysphagia: - MBS and speech path recommendations noted - If PEG needed and desired please let us know C. Abnormal imaging-pancreas and elevated Lipase - Patient does not appear to have acute pancreatitis - CT is non contrast and findings are very weak - Increased Lipase could be related to kidney disease D. Abnormal imaging of the liver - Check tumor markers and re-image in 8 weeks; with MRI or CT with contrast if possible Lj Rosario M.D. [phone]
[2020-03-23] MEDS: SODIUM CHLORIDE 0.9% IV 1,000 ML 150 ML IV CONT (20:08)
[2020-03-23 22:01] LABS: Glucose Point of Care 127 (65-105)
[2020-03-24] VITALS (16 sets, daily range): BP systolic 141–181; BP diastolic 72–91; PULSE 82–110; RESP 18–20; TEMP 36.9–37.1; O2SAT 94–99
[2020-03-24 00:41] LABS: Glucose Point of Care 124 (65-105)
[2020-03-24] MEDS: ALBUTEROL SULFATE NEB 2.5 MG/0.5 ML INH 5 MG INHALATION ×4 (01:18→20:34)
[2020-03-24] MEDS: IPRATROPIUM BR 0.02% INH SOLN 0.5 MG/2.5 ML VIAL INHALATION ×4 (01:18→20:34)
[2020-03-24] MEDS: METOPROLOL TARTRATE INJ 5 MG/5 ML VIAL IV PUSH ×4 (03:55→21:41)
[2020-03-24] MEDS: metroNIDAZOLE 500 MG/ISO 100ML 500 MG/100 ML BAG 100 MG IVPB ×3 (05:38→21:50)
[2020-03-24] MEDS: SODIUM CHLORIDE 0.9% IV 1,000 ML 150 ML IV CONT (05:38)
[2020-03-24 05:43] LABS: Glucose Point of Care 127 (65-105)
[2020-03-24 05:47] LABS: Basophils Percent Auto 0.4 % (0.2-1.2); Eosinophils Absolute Auto 0.2 K/mm3 (0-0.3); Eosinophils Percent Auto 1.3 % (0-4.4); Hematocrit 26.5 % (42.0-52.0); Immature Granulocyte Absolute 0.12 K/mm3 (0.00-0.031); Immature Granulocyte Percent A 1.1 % (0-0.5); Lymphocytes Absolute Auto 0.77 K/mm3 (0.9-3.2); Lymphocytes Percent Auto 6.8 % (18.3-44.2); Mean Corpuscular HGB Conc 30.2 g/dl (32-36); Mean Corpuscular Hemoglobin 24.8 pg (26-34); Mean Corpuscular Volume 82.3 fl (80-100); Mean Platelet Volume 10.7 fl (7.4-10.4); Monocytes Absolute Auto 0.6 K/mm3 (0.1-0.6); Monocytes Percent Auto 5.2 % (2.6-8.5); Neutrophils Absolute Auto 9.7 K/mm3 (1.3-6.7); Neutrophils Percent Auto 85.2 % (45.5-73.1); Platelet Count Result 350 k/mm3 (150-375); Red Blood Count 3.22 M/mm3 (4.6-6.20); Red Cell Distribution Width 18.8 % (11.5-14.5); White Blood Count 11.3 K/mm3 (4.5-10.0)
[2020-03-24 06:13] LABS: Alanine Aminotransferase 22 U/L (4-50); Alkaline Phosphatase 145 U/L (38-126); Aspartate Amino Transferase 40 U/L (17-59); Bilirubin,Total 0.4 mg/dL (0.2-1.3); Blood Urea Nitrogen 37 mg/dL (9-20); Calcium 8.3 mg/dL (8.4-10.2); Carbon Dioxide 24 mmol/L (22-30); Chloride 113 mmol/L (98-107); Creatine Kinase 72 U/L (55-170); Estimated CRCL calculation 35 ml/min; Estimated Glomerular Filt Rate 47; Glucose 127 mg/dL (75-110); Lipase 677 U/L (23-300); Magnesium 1.6 mg/dL (1.6-2.3); Phosphorus 3.4 mg/dL (2.5-4.5); Potassium 3.7 mmol/L (3.4-5.0); Sodium 146 mmol/L (137-145)
--- NOTE | 2020-03-24 08:26 | WPDANESPN ---
Anes - Prog Note Post-Op Date/Time: 03/24/20 08:26 Cardiovascular status: normal Respiratory status: normal Airway patency: baseline Mental status: baseline Post-Op hydration status: normal Vital Signs: Last Vital Signs Temp 37.0 C 03/24/20 06:52 Pulse 94 03/24/20 06:52 Resp 20 03/24/20 06:52 BP 141/72 H 03/24/20 06:52 Pulse Ox 97 03/24/20 06:52 I/O: Intake & Output 03/23/20 03/24/20 03/24/20 23:59 07:59 15:59 Intake Total 300 1000 Output Total 1150 1000 Balance -850 0 Laboratory Tests 03/24/20 05:37 03/24/20 05:37 03/21/20 03/23/20 03/23/20 15:52 12:42 17:15 WBC 13.2 H RBC 3.29 L Hgb 8.2 L Hct 26.7 L MCV 81.2 MCH 24.9 L D MCHC 30.7 L RDW 18.7 H Plt Count 331 MPV 9.8 Immature Gran % (Auto) Neut % (Auto) Lymph % (Auto) [place] % (Auto) Eos % (Auto) Baso % (Auto) Lymph # (Auto) [place] # (Auto) Eos # (Auto) Baso # (Auto) Abs Immat Gran (auto) Absolute Neuts (auto) Absolute Nucleated RBC Nucleated RBC % Sodium Potassium Chloride Carbon Dioxide BUN Creatinine Estim Creat Clear Calc Estimated GFR Glucose POC Capillary Glucose 135 H Calcium Phosphorus Magnesium Total Bilirubin Direct Bilirubin AST ALT Alkaline Phosphatase Total Creatine Kinase Total Protein Albumin Lipase Blood Type A Positive Antibody Screen Negative Crossmatch See Detail 03/23/20 03/24/20 03/24/20 20:07 00:22 05:34 WBC RBC Hgb Hct MCV MCH MCHC RDW Plt Count MPV Immature Gran % (Auto) Neut % (Auto) Lymph % (Auto) [place] % (Auto) Eos % (Auto) Baso % (Auto) Lymph # (Auto) [place] # (Auto) Eos # (Auto) Baso # (Auto) Abs Immat Gran (auto) Absolute Neuts (auto) Absolute Nucleated RBC Nucleated RBC % Sodium Potassium Chloride Carbon Dioxide BUN Creatinine Estim Creat Clear Calc Estimated GFR Glucose POC Capillary Glucose 127 H 124 H 127 H Calcium Phosphorus Magnesium Total Bilirubin Direct Bilirubin AST ALT Alkaline Phosphatase Total Creatine Kinase Total Protein Albumin Lipase Blood Type Antibody Screen Crossmatch 03/24/20 03/24/20 05:37 05:37 WBC 11.3 H RBC 3.22 L Hgb 8.0 L Hct 26.5 L MCV 82.3 MCH 24.8 L MCHC 30.2 L RDW 18.8 H Plt Count 350 MPV 10.7 H Immature Gran % (Auto) 1.1 H Neut % (Auto) 85.2 H Lymph % (Auto) 6.8 L [place] % (Auto) 5.2 Eos % (Auto) 1.3 Baso % (Auto) 0.4 Lymph # (Auto) 0.77 L [place] # (Auto) 0.6 Eos # (Auto) 0.2 Baso # (Auto) 0.0 Abs Immat Gran (auto) 0.12 H Absolute Neuts (auto) 9.7 H Absolute Nucleated RBC 0.0 Nucleated RBC % 0.0 Sodium 146 H Potassium 3.7 Chloride 113 H Carbon Dioxide 24 BUN 37 H D Creatinine 1.80 H Estim Creat Clear Calc 35 Estimated GFR 47 L Glucose 127 H POC Capillary Glucose Calcium 8.3 L Phosphorus 3.4 Magnesium 1.6 Total Bilirubin 0.4 Direct Bilirubin 0.0 AST 40 ALT 22 Alkaline Phosphatase 145 H Total Creatine Kinase 72 Total Protein 7.0 Albumin 3.0 L Lipase 677 H Blood Type Antibody Screen Crossmatch Microbiology 03/19/20 06:45 Blood Blood Culture - Preliminary Coag negative Staphylococcus 03/19/20 23:52 Stool Escherichia coli Shiga Toxins - Final 03/19/20 23:52 Stool Campylobacter Culture - Final 03/19/20 23:52 Stool Salmonella/Shigella Culture - Final 03/19/20 23:52 Stool Clostridioides difficile Toxin Assay - Final 03/19/20 23:52 Stool C.difficile Toxin B Gene (PCR) - Final 03/19/20 23:52 Stool Cryptosporidium Exam - Final 03/19/20 23:52 Stool Giardia Antigen (SVEN) - Final Post-procedural complaints: none Patient Feedback: Patient satis
--- NOTE | 2020-03-24 08:49 | WPDGIPROGNO ---
Progress Note: A&P Assessment and Plan (1) Acute blood loss anemia: Code(s): D62 - Acute posthemorrhagic anemia Status: Acute Assessment and Plan: Patient found to have gastric and duodenal ulcers which could of contributing to acute drop in hgb. Hgb 6.9 and improved to 8 after 1 unit of blood 03/23/2020. No further melena or drop in hgb at this time. Will continue to trend and monitor -PPI BID -Will need EGD 8-10 to evaulate for healing. (2) Iron deficiency anemia: Code(s): D50.9 - Iron deficiency anemia, unspecified Status: Acute Assessment and Plan: Acute on Chronic- Replace with Iron (3) Acute pancreatitis: Code(s): K85.90 - Acute pancreatitis without necrosis or infection, unspecified Status: Acute Assessment and Plan: This could be secondary to hx of heavy ETOH use. Will continue to monitor. Supportive tx Triglycerides are normal and no evidence of gallstones (4) Liver mass: Code(s): R16.0 - Hepatomegaly, not elsewhere classified Status: Acute Assessment and Plan: Concerns for possible hemangioma on imaging. This can be followed outpatient with contrast MRI once kidneys improve AFP while hospitalized (5) C. difficile diarrhea: Code(s): A04.72 - Enterocolitis due to Clostridium difficile, not specified as recurrent Status: Acute Assessment and Plan: Continue IV Flagyl- Loose stools have been improving-1 stool during scene shifter was noted (6) Swallowing impairment: Code(s): R13.10 - Dysphagia, unspecified Status: Acute Assessment and Plan: Patient failed his mbs with aspiration noted. Keep NPO. Consider alternative nutrition till complete decision of PEG Discussion with family regarding placing a PEG. If PEG is requested we can place Subjective Date/time seen: 03/24/20 08:49 Patient gives yes or no answeres. Per nursing staff he had one loose stool this AM. He did test positive for c diff. Nursing denies any melena or hematochezia. Patient denies any abdominal pain. He is still NPO as he failed his swallow study Exam Const: General: cooperative, comfortable, no acute distress, alert, awake and ill appearing Limitations: language barrier GI: Inspection: normal to inspection Auscultation: normal bowel sounds Rectal Exam: deferred Extrem: Right lower extremity: abnormal to inspection (Above knee amputation) Objective Data Vital Signs Vital Signs: Vital Signs - 24 hr 03/23/20 11:57 03/23/20 12:14 03/23/20 13:14 Temperature 37.1 C 37.0 C 37.1 C Pulse Rate 94 96 92 Respiratory Rate 16 20 16 Blood Pressure 151/74 H 146/95 H 166/81 H Pulse Oximetry 98 99 99 03/23/20 13:58 03/23/20 14:00 03/23/20 14:04 Temperature 37.3 C Pulse Rate 95 97 92 Respiratory Rate 16 20 16 Blood Pressure 161/75 H Pulse Oximetry 96 03/23/20 14:14 03/23/20 17:26 03/23/20 18:54 Temperature 37.3 C Pulse Rate 97 96 89 Respiratory Rate 20 19 Blood Pressure 161/75 H 133/78 Pulse Oximetry 96 100 03/23/20 19:04 03/23/20 19:14 03/23/20 19:39 Temperature Pulse Rate 89 88 87 Respiratory Rate 19 19 18 Blood Pressure 150/87 H 159/91 H Pulse Oximetry 100 100 03/23/20 19:42 03/23/20 19:46 03/23/20 20:09 Temperature Pulse Rate 88 86 Respiratory Rate 18 Blood Pressure Pulse Oximetry 98 03/23/20 22:00 03/24/20 01:18 03/24/20 01:26 Temperature 37.2 C Pulse Rate 93 92 89 Respiratory Rate 18 18 18 Blood Pressure 152/89 H Pulse Oximetry 99 03/24/20 03:55 03/24/20 06:52 03/24/20 08:39 Temperature 37.0 C Pulse Rate 82 94 88 Respiratory Rate 20 18 Blood Pressure 141/72 H Pulse Oximetry 97 03/24/20 08:40 03/24/20 08:46 Temperature Pulse Rate 86 Respiratory Rate 18 Blood Pressure Pulse Oximetry 97 Intake/Output Intake/Output: Intake & Output 03/21/20 03/22/20 03/23/20 03/24/20 23:59 23:59 23:59 23:59 Intake Total 3340 1650 18
[2020-03-24] MEDS: PANTOPRAZOLE SODIUM IV 40 MG VIAL IV PUSH ×2 (09:49→21:26)
--- NOTE | 2020-03-24 11:13 | PCSTNOTE ---
Patient was seen for a direct ST treatment to address swallowing skills however patient exhibited no ability to follow instructions for exercises in spite of being awake and alert. Therapist did not offer oral feeding due to no ability to follow instructions, fearing possible aspiration due to being unable to follow safe swallowing strategies. Therapist spoke with both nurse and Dr. Murphy concerning patient's poor ability to participate in structured tasks and that further ST is not indicated at this time. Both reported patient is being considered for PEG tube feedings for nutrition and hydration. Therapist offered to have ST resume should tube feedings be rejected forcing the patient to return to oral feedings; ST would address assessing the safest diet and liquid consistency levels and amounts for patient to prevent aspiration without him actively participating in direct therapy tasks.
[2020-03-24 13:21] LABS: Glucose Point of Care 159 (65-105)
[2020-03-24 17:58] LABS: Glucose Point of Care 137 (65-105)
[2020-03-24] MEDS: SODIUM CHLORIDE 0.45% 1,000 ML 125 ML IV CONT (21:25)
--- NOTE | 2020-03-24 22:29 | P.PNIM_ITS ---
Progress Note: A&P Assessment and Plan (1) Severe sepsis: Code(s): A41.9 - Sepsis, unspecified organism; R65.20 - Severe sepsis without septic shock Status: Acute Assessment and Plan: * Present on admission and supported by hypotension, fever, leukocytosis, elevated lactic acid, and acute kidney injury. * Lactic acid level has normalized with IV fluid rehydration and blood pressures improved without pressors and continue hydration. * Central line placed in the ED though he did not require vasopressors with a MAP consistently above 65. * Sepsis presumably due to urinary tract infection(urine only [id number] colonies) however given his abdominal exam, and/or pancreatitis, or cdiff * 1/2 BC+ for staph epi probable contaminant (2) Complicated urinary tract infection: Code(s): N39.0 - Urinary tract infection, site not specified Status: Acute Assessment and Plan: * Secondary to indwelling Cavanaugh catheter. * on cefepime, culture as above * Empiric vancomycin, and with cultures neg d/hanna. (3) Acute kidney injury: Code(s): N17.9 - Acute kidney failure, unspecified Status: Acute Assessment and Plan: * Likely multifactorial in etiology. He appears quite dry on exam on admission and it sounds as though his Cavanaugh catheter was not draining well due to pus in the urine, and thus there may be a component of postobstructive uropathy. * Cavanaugh catheter was changed and will monitor strict I/O. * Creatinine is down to 1.8 today from 7.4 * Renal ultrasound no obstruction and CK is elevated also and fell to 154 7/5 * Third spacing with pancreatitis could be an etiology also * with cpk down and co2 up change IV from Nahco3 to NS 7/4 and 0.45Nacl today with rising Na and Cl (4) Type 2 diabetes mellitus: Code(s): E11.9 - Type 2 diabetes mellitus without complications Status: Acute Assessment and Plan: * According to his sister, he has been diagnosed with diabetes but has never been started on oral medication. * For the time being he will be on sliding scale insulin and hemoglobin A1c 7.3 (5) Essential hypertension: Code(s): I10 - Essential (primary) hypertension Status: Acute Assessment and Plan: * Antihypertensives were held with hypotension initially . BP and pulse up more 03/23 so started IV metoprolol. (6) Acute respiratory failure with hypoxia: Code(s): J96.01 - Acute respiratory failure with hypoxia Status: Acute Assessment and Plan: * Chest x-ray is really unremarkable and he is negative for COVID-19. * Repeat chest x-ray 03/20 no real change. * Pulmonary embolism is a consideration . Due to profound uremia, with the elevated D-dimer V/Q scan was intermediate probability and started on IV heparin that was stopped 03/21 due to falling hgb and occult blood in stool * If renal status improves enough possible CTA of the chest before commit to long-term anticoagulation * venous Doppler ultrasounds of right upper extremity and left lower extremity are negative for DVT * He will be NPO for now for pancreatitis and failed MBS 03/23 (7) Abdominal pain: Code(s): R10.9 - Unspecified abdominal pain Status: Acute Assessment and Plan: * Lipase of
--- NOTE | 2020-03-24 22:29 | PM.IMPN ---
Progress Note: A&P Assessment and Plan (1) Severe sepsis: Code(s): A41.9 - Sepsis, unspecified organism; R65.20 - Severe sepsis without septic shock Status: Acute Assessment and Plan: Present on admission and supported by hypotension, fever, leukocytosis, elevated lactic acid, and acute kidney injury. Lactic acid level has normalized with IV fluid rehydration and blood pressures improved without pressors and continue hydration. Central line placed in the ED though he did not require vasopressors with a MAP consistently above 65. Sepsis presumably due to urinary tract infection(urine only [id number] colonies) however given his abdominal exam, and/or pancreatitis, or cdiff / BC+ for staph epi probable contaminant (2) Complicated urinary tract infection: Code(s): N39.0 - Urinary tract infection, site not specified Status: Acute Assessment and Plan: Secondary to indwelling Cavanaugh catheter. on cefepime, culture as above Empiric vancomycin, and with cultures neg d/hanna. (3) Acute kidney injury: Code(s): N17.9 - Acute kidney failure, unspecified Status: Acute Assessment and Plan: Likely multifactorial in etiology. He appears quite dry on exam on admission and it sounds as though his Cavanaugh catheter was not draining well due to pus in the urine, and thus there may be a component of postobstructive uropathy. Cavanaugh catheter was changed and will monitor strict I/O. Creatinine is down to 1.8 today from 7.4 Renal ultrasound no obstruction and CK is elevated also and fell to 154 7/5 Third spacing with pancreatitis could be an etiology also with cpk down and co2 up change IV from Nahco3 to NS 7/4 and 0.45Nacl today with rising Na and Cl (4) Type 2 diabetes mellitus: Code(s): E11.9 - Type 2 diabetes mellitus without complications Status: Acute Assessment and Plan: According to his sister, he has been diagnosed with diabetes but has never been started on oral medication. For the time being he will be on sliding scale insulin and hemoglobin A1c 7.3 (5) Essential hypertension: Code(s): I10 - Essential (primary) hypertension Status: Acute Assessment and Plan: Antihypertensives were held with hypotension initially . BP and pulse up more 03/23 so started IV metoprolol. (6) Acute respiratory failure with hypoxia: Code(s): J96.01 - Acute respiratory failure with hypoxia Status: Acute Assessment and Plan: Chest x-ray is really unremarkable and he is negative for COVID-19. Repeat chest x-ray 03/20 no real change. Pulmonary embolism is a consideration . Due to profound uremia, with the elevated D-dimer V/Q scan was intermediate probability and started on IV heparin that was stopped 03/21 due to falling hgb and occult blood in stool If renal status improves enough possible CTA of the chest before commit to long-term anticoagulation venous Doppler ultrasounds of right upper extremity and left lower extremity are negative for DVT He will be NPO for now for pancreatitis and failed MBS 03/23 (7) Abdominal pain: Code(s): R10.9 - Unspecified abdominal pain Status: Acute Assessment and Plan: Lipase of [address] scan acute pancreatitis on admission. Lipase today 677 with increase bowel sounds . Continue hydration pain control and follow lipase with LFTs. Still n. p.o. with the pancreatitis no gallstones and tryglycerides normal. (8) Iron deficiency anemia: Code(s): D50.9 - Iron deficiency anemia, unspecified Status: Acute Assessm
[2020-03-24 22:40] LABS: Hematocrit 26.3 % (42.0-52.0); Hemoglobin 8.2 g/dL (14.0-18.0); Mean Corpuscular HGB Conc 31.2 g/dl (32-36); Mean Corpuscular Hemoglobin 25.2 pg (26-34); Mean Corpuscular Volume 80.7 fl (80-100); Mean Platelet Volume 10.1 fl (7.4-10.4); Platelet Count Result 361 k/mm3 (150-375); Red Blood Count 3.26 M/mm3 (4.6-6.20); Red Cell Distribution Width 18.9 % (11.5-14.5); White Blood Count 11.1 K/mm3 (4.5-10.0)
[2020-03-24 22:59] LABS: Blood Urea Nitrogen 26 mg/dL (9-20); Calcium 8.3 mg/dL (8.4-10.2); Carbon Dioxide 25 mmol/L (22-30); Chloride 111 mmol/L (98-107); Estimated CRCL calculation 41 ml/min; Estimated Glomerular Filt Rate 58; Glucose 133 mg/dL (75-110); Magnesium 1.4 mg/dL (1.6-2.3); Phosphorus 2.4 mg/dL (2.5-4.5); Potassium 3.7 mmol/L (3.4-5.0); Sodium 142 mmol/L (137-145)
[2020-03-25] VITALS (20 sets, daily range): BP systolic 130–162; BP diastolic 68–87; PULSE 72–100; RESP 16–18; TEMP 36.2–36.9; O2SAT 94–100
[2020-03-25 00:31] LABS: Glucose Point of Care 135 (65-105)
--- NOTE | 2020-03-25 02:10 | PM.EVENT ---
Event Note Event Note Event Note: Called to evaluate this 59 year old with history of cerebrovascular accident with resultant dense hemiplegia and aphasia secondary to an acute generalized seizure. On my arrival to bedside the patient is awake, alert, and tracking my movements. He is aphasic and cannot communicate with me. The patient does not appear to have any history of seizure disorder. STAT CT brain was obtained and was unremarkable for acute pathology. Routine labs were obtained and were also unremarkable. The patient had a brief second seizure tonight. Blood glucose has been stable. Acute Seizure -Aspiration precautions -Keppra 750 mg IV BID (renally dosed) -Neurology consult in am. -Consider EEG in am. -Telemetry - I will continue to reassess as needed
[2020-03-25] MEDS: IPRATROPIUM BR 0.02% INH SOLN 0.5 MG/2.5 ML VIAL INHALATION ×4 (02:17→20:27)
[2020-03-25] MEDS: ALBUTEROL SULFATE NEB 2.5 MG/0.5 ML INH 5 MG INHALATION ×4 (02:17→20:27)
[2020-03-25 02:26] LABS: Glucose Point of Care 117 (65-105)
[2020-03-25] MEDS: levETIRAcetam IV 750 MG in DEXTROSE 5% 100 ML 430 MG IVPB ×3 (02:55→22:06)
[2020-03-25] MEDS: METOPROLOL TARTRATE INJ 5 MG/5 ML VIAL IV PUSH ×4 (03:21→22:00)
[2020-03-25 04:19] LABS: Glucose Point of Care 126 (65-105)
[2020-03-25 05:39] LABS: Basophils Percent Auto 0.3 % (0.2-1.2); Eosinophils Absolute Auto 0.2 K/mm3 (0-0.3); Eosinophils Percent Auto 1.9 % (0-4.4); Hemoglobin 7.8 g/dL (14.0-18.0); Immature Granulocyte Absolute 0.06 K/mm3 (0.00-0.031); Immature Granulocyte Percent A 0.6 % (0-0.5); Lymphocytes Absolute Auto 1.04 K/mm3 (0.9-3.2); Lymphocytes Percent Auto 9.6 % (18.3-44.2); Mean Corpuscular Hemoglobin 24.3 pg (26-34); Mean Platelet Volume 10.6 fl (7.4-10.4); Monocytes Absolute Auto 0.7 K/mm3 (0.1-0.6); Neutrophils Absolute Auto 8.9 K/mm3 (1.3-6.7); Neutrophils Percent Auto 81.6 % (45.5-73.1); Platelet Count Result 375 k/mm3 (150-375); Red Blood Count 3.21 M/mm3 (4.6-6.20); Red Cell Distribution Width 19.2 % (11.5-14.5); White Blood Count 10.9 K/mm3 (4.5-10.0)
[2020-03-25 05:50] LABS: Alanine Aminotransferase 21 U/L (4-50); Alkaline Phosphatase 130 U/L (38-126); Aspartate Amino Transferase 31 U/L (17-59); Bilirubin,Total 0.5 mg/dL (0.2-1.3); Blood Urea Nitrogen 24 mg/dL (9-20); Calcium 8.2 mg/dL (8.4-10.2); Carbon Dioxide 26 mmol/L (22-30); Chloride 109 mmol/L (98-107); Estimated CRCL calculation 44 ml/min; Estimated Glomerular Filt Rate > 60; Glucose 133 mg/dL (75-110); Lipase 516 U/L (23-300); Potassium 3.5 mmol/L (3.4-5.0); Sodium 141 mmol/L (137-145)
[2020-03-25] MEDS: SODIUM CHLORIDE 0.45% 1,000 ML 125 ML IV CONT ×2 (06:31→10:11)
[2020-03-25] MEDS: metroNIDAZOLE 500 MG/ISO 100ML 500 MG/100 ML BAG 100 MG IVPB ×3 (06:32→22:10)
[2020-03-25 06:53] LABS: Glucose Point of Care 117 (65-105)
[2020-03-25] MEDS: PANTOPRAZOLE SODIUM IV 40 MG VIAL IV PUSH ×2 (10:12→21:57)
[2020-03-25 14:34] LABS: Glucose Point of Care 101 (65-105)
--- NOTE | 2020-03-25 16:19 | PM.IMPN ---
Progress Note: A&P Assessment and Plan (1) Seizure: Code(s): R56.9 - Unspecified convulsions Status: Acute Assessment and Plan: New onset seizures noted overnight. CT brain showing old infarct but nothing acute. Keppra started. Neuro consult obtained. (2) Severe sepsis: Code(s): A41.9 - Sepsis, unspecified organism; R65.20 - Severe sepsis without septic shock Status: Acute Assessment and Plan: Present on admission and supported by hypotension, fever, leukocytosis, elevated lactic acid, and acute kidney injury. Lactic acid level has normalized with IV fluid rehydration and blood pressures improved without pressors and continue hydration. Central line placed in the ED though he did not require vasopressors with a MAP consistently above 65. Sepsis presumably due to urinary tract infection(urine only [id number] colonies) however given his abdominal exam, and/or pancreatitis, or cdiff 1/2 BC+ for staph epi possibly contaminant (3) Complicated urinary tract infection: Code(s): N39.0 - Urinary tract infection, site not specified Status: Acute Assessment and Plan: Secondary to indwelling Cavanaugh catheter. UCx growing 3+ organisms each >10K. BCx groiwn CNStaph (1of2 bottles). Currently on on cefepime and Vanco. Continue the same for now (4) Acute kidney injury: Code(s): N17.9 - Acute kidney failure, unspecified Status: Acute Assessment and Plan: Cr 7.4 on admission. Likely multifactorial in etiology. He appears quite dry on exam on admission and it sounds as though his Cavanaugh catheter was not draining well due to pus in the urine, and thus there may be a component of postobstructive uropathy. Cavanaugh catheter was changed and IV fluids started. TCK as high as 1400 before normalizing. Renal ultrasound no obstruction. Creatinine is down to 1.4 today. Continue IVF but change to maintenance (5) C. difficile diarrhea: Code(s): A04.72 - Enterocolitis due to Clostridium difficile, not specified as recurrent Status: Acute Assessment and Plan: Having soft stools. Stool culture negative. Stool for cdiff by pcr was +. WBC 28K but has trended down to 10K now. Continue IV Flagyl. Not been on oral meds. Sister relates he has had bad cdiff in past with watery stool. May be chronic carrier? Continue IV flagyl only for rx (6) Acute respiratory failure with hypoxia: Code(s): J96.01 - Acute respiratory failure with hypoxia Status: Acute Assessment and Plan: Chest x-ray is unremarkable on admission and he is negative for COVID-19. Repeat chest x-ray 03/20 no real change. Pulmonary embolism is a consideration with elevated D-dimer but V/Q scan was intermediate probability and negative Doppler for DVT. He was started on IV heparin that was stopped 03/21 due to falling hgb and occult blood in stool. Possibly related to aspiration. Wean o2 as tolerated. (7) Acute blood loss anemia: Code(s): D62 - Acute posthemorrhagic anemia Status: Acute Assessment and Plan: History of iron deficiency anemia. Fe and TIBC both low compatible with chronic disease. Hgb 10.7 on admission but dropped to 7-8 range and was stable up until 03/23 when dropped to 6.8. He received 1U PRBC and Hgb has been stable since in the 7-8 range. EGD showing gastric and duodenal ulcers. Contineu to monitor. (8) Dysphagia: Code(s): R13.10 - Dysphagia, unspecified Status: Acute Assessment and Plan: Patient failed modified barium swallow 03/23. Speech therapy state that patient not able to follow commands. Sister is aware that this most likely will be permanent. Will let GI know that the family is requesting PEG. (9) Peptic
[2020-03-25 18:51] LABS: Glucose Point of Care 103 (65-105)
[2020-03-25] MEDS: KCL 20 MEQ/D5/0.9% SOD CHL 1,000 ML 70 ML IV CONT (19:30)
[2020-03-26] VITALS (20 sets, daily range): BP systolic 144–151; BP diastolic 75–84; PULSE 83–95; RESP 16–20; TEMP 36.6–36.9; O2SAT 94–100; BMI 18.6
[2020-03-26 00:07] LABS: Glucose Point of Care 153 (65-105)
[2020-03-26] MEDS: ALBUTEROL SULFATE NEB 2.5 MG/0.5 ML INH 5 MG INHALATION ×4 (02:40→20:23)
[2020-03-26] MEDS: IPRATROPIUM BR 0.02% INH SOLN 0.5 MG/2.5 ML VIAL INHALATION ×4 (02:41→20:24)
[2020-03-26] MEDS: METOPROLOL TARTRATE INJ 5 MG/5 ML VIAL IV PUSH ×4 (03:47→20:12)
[2020-03-26] MEDS: metroNIDAZOLE 500 MG/ISO 100ML 500 MG/100 ML BAG 100 MG IVPB ×3 (05:34→21:09)
[2020-03-26 05:55] LABS: Glucose Point of Care 119 (65-105)
[2020-03-26 06:08] LABS: Hematocrit 25.4 % (42.0-52.0); Hemoglobin 7.8 g/dL (14.0-18.0); Mean Corpuscular HGB Conc 30.7 g/dl (32-36); Mean Corpuscular Hemoglobin 24.6 pg (26-34); Mean Corpuscular Volume 80.1 fl (80-100); Mean Platelet Volume 10.6 fl (7.4-10.4); Platelet Count Result 398 k/mm3 (150-375); Red Blood Count 3.17 M/mm3 (4.6-6.20); Red Cell Distribution Width 18.9 % (11.5-14.5); White Blood Count 10.6 K/mm3 (4.5-10.0)
[2020-03-26 06:22] LABS: Albumin Level 2.9 g/dL (3.5-5.1); Blood Urea Nitrogen 16 mg/dL (9-20); Calcium 7.9 mg/dL (8.4-10.2); Carbon Dioxide 25 mmol/L (22-30); Chloride 108 mmol/L (98-107); Estimated CRCL calculation 47 ml/min; Estimated Glomerular Filt Rate > 60; Glucose 146 mg/dL (75-110); Magnesium 1.2 mg/dL (1.6-2.3); Phosphorus 2.9 mg/dL (2.5-4.5); Potassium 3.5 mmol/L (3.4-5.0); Sodium 139 mmol/L (137-145)
[2020-03-26] MEDS: KCL 20 MEQ/D5/0.9% SOD CHL 1,000 ML 70 ML IV CONT (08:38)
[2020-03-26] MEDS: MAGNESIUM SULF 2 GM/WATER 50ML 2 GM/50 ML BAG IVPB (08:49)
[2020-03-26] MEDS: levETIRAcetam IV 750 MG in DEXTROSE 5% 100 ML 430 MG IVPB ×2 (08:50→20:13)
[2020-03-26] MEDS: PANTOPRAZOLE SODIUM IV 40 MG VIAL IV PUSH ×2 (08:50→20:13)
[2020-03-26 09:31] LABS: Glucose Point of Care 153 (65-105)
--- NOTE | 2020-03-26 12:20 | PM.IMPN ---
Progress Note: A&P Assessment and Plan (1) Seizure: Code(s): R56.9 - Unspecified convulsions Status: Acute Assessment and Plan: New onset seizures noted overnight 03/25/20. CT brain showing old infarct but nothing acute. Continue Keppra. Neuro consult obtained and appreciate their input. (2) Severe sepsis: Code(s): A41.9 - Sepsis, unspecified organism; R65.20 - Severe sepsis without septic shock Status: Acute Assessment and Plan: Present on admission and supported by hypotension, fever, leukocytosis, elevated lactic acid, and acute kidney injury. Lactic acid level has normalized with IV fluid rehydration and blood pressures improved without pressors and continue hydration. Central line placed in the ED though he did not require vasopressors with a MAP consistently above 65. Sepsis presumably due to urinary tract infection and/or pancreatitis, or cdiff 1/2 BCx+ for staph epi possibly contaminant (3) Complicated urinary tract infection: Code(s): N39.0 - Urinary tract infection, site not specified Status: Acute Assessment and Plan: Secondary to indwelling Cavanaugh catheter. UCx growing 3+ organisms each >10K. BCx groiwn CNStaph (1of2 bottles). Currently on on cefepime and Vanco. Continue the same for now (4) Acute kidney injury: Code(s): N17.9 - Acute kidney failure, unspecified Status: Acute Assessment and Plan: Cr 7.4 on admission. Likely multifactorial in etiology. He appears quite dry on exam on admission and it sounds as though his Cavanaugh catheter was not draining well due to pus in the urine, and thus there may be a component of postobstructive uropathy. Cavanaugh catheter was changed and IV fluids started. TCK as high as 1400 before normalizing. Renal ultrasound no obstruction. Creatinine is down to 1.3 today. Continue fluids (5) C. difficile diarrhea: Code(s): A04.72 - Enterocolitis due to Clostridium difficile, not specified as recurrent Status: Acute Assessment and Plan: Having soft stools. Stool culture negative. Stool for cdiff by pcr was +. WBC 28K but has trended down to 10K now. Continue IV Flagyl. Not been on oral meds. Sister relates he has had bad cdiff in past with watery stool. May be chronic carrier? Continue IV flagyl only for rx. (6) Acute respiratory failure with hypoxia: Code(s): J96.01 - Acute respiratory failure with hypoxia Status: Acute Assessment and Plan: Chest x-ray is unremarkable on admission and he is negative for COVID-19. Repeat chest x-ray 03/20 no real change. Pulmonary embolism is a consideration with elevated D-dimer but V/Q scan was intermediate probability and negative Doppler for DVT. He was started on IV heparin that was stopped 03/21 due to falling hgb and occult blood in stool. Hypoxia possibly related to aspiration. Wean o2 as tolerated. (7) Acute blood loss anemia: Code(s): D62 - Acute posthemorrhagic anemia Status: Acute Assessment and Plan: History of iron deficiency anemia. Fe and TIBC both low compatible with chronic disease. Hgb 10.7 on admission but dropped to 7-8 range and was stable up until 03/23 when dropped to 6.8. He received 1U PRBC and Hgb has been stable since in the 7-8 range. EGD showing gastric and duodenal ulcers. Continue to monitor. (8) Dysphagia: Code(s): R13.10 - Dysphagia, unspecified Status: Acute Assessment and Plan: Patient failed modified barium swallow 03/23. Speech therapy state that patient not able to follow commands. Sister is aware that this most likely will be permanent given that patietn can not participate in therapy. Plan for PEG. Start TPN. GI is aware about family cruz
[2020-03-26 12:54] LABS: Glucose Point of Care 149 (65-105)
--- NOTE | 2020-03-26 13:12 | PC.NURSE ---
CALLED [facility] COORDINATOR REPORTED THEY WOULD LIKE A FAMILY CONFERENCE PER DR BONILLA
--- NOTE | 2020-03-26 13:55 | WPDNEURCNPN ---
Assessment and Plan Assessment and plan (1) Seizure: Code(s): R56.9 - Unspecified convulsions Status: Acute (2) Peptic ulcer disease: Code(s): K27.9 - Peptic ulcer, site unspecified, unspecified as acute or chronic, without hemorrhage or perforation Status: Acute (3) Swallowing impairment: Code(s): R13.10 - Dysphagia, unspecified Status: Acute (4) C. difficile diarrhea: Code(s): A04.72 - Enterocolitis due to Clostridium difficile, not specified as recurrent Status: Acute (5) Dysphagia: Code(s): R13.10 - Dysphagia, unspecified Status: Acute (6) Liver mass: Code(s): R16.0 - Hepatomegaly, not elsewhere classified Status: Acute (7) Acute pancreatitis: Code(s): K85.90 - Acute pancreatitis without necrosis or infection, unspecified Status: Acute (8) Acute blood loss anemia: Code(s): D62 - Acute posthemorrhagic anemia Status: Acute (9) Abdominal pain: Code(s): R10.9 - Unspecified abdominal pain Status: Acute (10) Acute respiratory failure with hypoxia: Code(s): J96.01 - Acute respiratory failure with hypoxia Status: Acute (11) Type 2 diabetes mellitus: Code(s): E11.9 - Type 2 diabetes mellitus without complications Status: Acute (12) Acute kidney injury: Code(s): N17.9 - Acute kidney failure, unspecified Status: Acute (13) Complicated urinary tract infection: Code(s): N39.0 - Urinary tract infection, site not specified Status: Acute (14) Severe sepsis: Code(s): A41.9 - Sepsis, unspecified organism; R65.20 - Severe sepsis without septic shock Status: Acute (15) Iron deficiency anemia: Code(s): D50.9 - Iron deficiency anemia, unspecified Status: Acute (16) Congenital heart failure: Code(s): I50.9 - Heart failure, unspecified Status: Acute (17) Essential hypertension: Code(s): I10 - Essential (primary) hypertension Status: Acute (18) Acute renal failure: Code(s): N17.9 - Acute kidney failure, unspecified Status: Acute (19) Acute hyperkalemia: Code(s): E87.5 - Hyperkalemia Status: Acute (20) History of right above knee amputation: Onset Date: ~08/2019 Code(s): Z89.611 - Acquired absence of right leg above knee Status: Acute (21) Acute UTI: Code(s): N39.0 - Urinary tract infection, site not specified Status: Acute (22) Dementia: Qualifiers: Dementia behavioral disturbance: without behavioral disturbance Dementia type: unspecified type Qualified Code(s): F03.90 - Unspecified dementia without behavioral disturbance Code(s): F03.90 - Unspecified dementia without behavioral disturbance Status: Acute (23) Aphasia: Code(s): R47.01 - Aphasia Status: Acute Additional Plan continue present medical management as being done Consult date: 03/26/20 Time Seen: 13:00 HPI: Maynor Inman is a 59 year old male was admitted with multiple diagnosis and then had a seizure for which he is on levetiracetam he has not had any for the seizure not much history is possible because of his underlying medical issues the patient does have evidence of a rather large left hemispheric infarct which is most likely responsible for his seizures does not seem to be any distress and is having respiratory treatment the time of the examination he is right lower extremity amputee Review of Systems Review of Systems: ROS unobtainable: Yes unobtainable due to mental status PMFSH Past Medical History Medical History Benign prostate hyperplasia Cerebral vascular accident (~06/2019) With resultant, dense right hemiplegia and expressive aphasia. Dysphagia On a regular diet as of 03/19/2020. Essential hypertension Iron deficiency anemia Peripheral vascular disease Status post right above-t
[2020-03-26 17:57] LABS: Glucose Point of Care 136 (65-105)
[2020-03-27] VITALS (22 sets, daily range): BP systolic 99–158; BP diastolic 48–88; PULSE 77–106; RESP 18–20; TEMP 36.6–37.2; O2SAT 94–100
[2020-03-27] MEDS: ALBUTEROL SULFATE NEB 2.5 MG/0.5 ML INH 5 MG INHALATION ×4 (01:48→20:32)
[2020-03-27] MEDS: IPRATROPIUM BR 0.02% INH SOLN 0.5 MG/2.5 ML VIAL INHALATION ×5 (01:49→20:33)
[2020-03-27] MEDS: METOPROLOL TARTRATE INJ 5 MG/5 ML VIAL IV PUSH ×3 (03:37→17:49)
[2020-03-27] MEDS: metroNIDAZOLE 500 MG/ISO 100ML 500 MG/100 ML BAG 100 MG IVPB ×2 (05:26→17:41)
[2020-03-27 05:31] LABS: Basophils Percent Auto 0.3 % (0.2-1.2); Eosinophils Absolute Auto 0.3 K/mm3 (0-0.3); Eosinophils Percent Auto 2.7 % (0-4.4); Hematocrit 24.5 % (42.0-52.0); Hemoglobin 7.6 g/dL (14.0-18.0); Immature Granulocyte Absolute 0.08 K/mm3 (0.00-0.031); Immature Granulocyte Percent A 0.7 % (0-0.5); Lymphocytes Absolute Auto 0.99 K/mm3 (0.9-3.2); Lymphocytes Percent Auto 8.4 % (18.3-44.2); Mean Corpuscular Volume 80.6 fl (80-100); Mean Platelet Volume 9.5 fl (7.4-10.4); Monocytes Absolute Auto 0.5 K/mm3 (0.1-0.6); Monocytes Percent Auto 4.1 % (2.6-8.5); Neutrophils Absolute Auto 9.9 K/mm3 (1.3-6.7); Neutrophils Percent Auto 83.8 % (45.5-73.1); Platelet Count Result 382 k/mm3 (150-375); Red Blood Count 3.04 M/mm3 (4.6-6.20); Red Cell Distribution Width 18.7 % (11.5-14.5); White Blood Count 11.8 K/mm3 (4.5-10.0)
[2020-03-27 05:40] LABS: Glucose Point of Care 141 (65-105)
[2020-03-27 05:42] LABS: Partial Thromboplastin Time 36.4 SECONDS (22.3-36.8)
[2020-03-27 05:42] LABS: Glucose Point of Care 138 (65-105)
[2020-03-27 05:43] LABS: Alanine Aminotransferase 13 U/L (4-50); Albumin Level 2.8 g/dL (3.5-5.1); Alkaline Phosphatase 99 U/L (38-126); Aspartate Amino Transferase 16 U/L (17-59); Bilirubin,Total 0.1 mg/dL (0.2-1.3); Blood Urea Nitrogen 14 mg/dL (9-20); Calcium 8.1 mg/dL (8.4-10.2); Carbon Dioxide 23 mmol/L (22-30); Chloride 108 mmol/L (98-107); Estimated CRCL calculation 46 ml/min; Estimated Glomerular Filt Rate > 60; Glucose 160 mg/dL (75-110); Magnesium 1.6 mg/dL (1.6-2.3); Phosphorus 3.1 mg/dL (2.5-4.5); Potassium 3.3 mmol/L (3.4-5.0); Sodium 138 mmol/L (137-145)
[2020-03-27 05:43] LABS: Glucose Point of Care 160 (65-105)
[2020-03-27 05:51] LABS: Transferrin 134 mg/dL (206-381)
[2020-03-27] MEDS: PANTOPRAZOLE SODIUM IV 40 MG VIAL IV PUSH ×2 (08:24→21:40)
[2020-03-27] MEDS: levETIRAcetam IV 750 MG in DEXTROSE 5% 100 ML 430 MG IVPB (08:30)
[2020-03-27 08:36] LABS: Glucose Point of Care 146 (65-105)
--- NOTE | 2020-03-27 09:23 | PM.IMPN ---
Progress Note: A&P Assessment and Plan (1) Seizure: Code(s): R56.9 - Unspecified convulsions Status: Acute Assessment and Plan: New onset seizures noted overnight 03/25/20. CT brain showing old infarct but nothing acute. Possibly related to hx of CVA. 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 Continue Keppra. Neuro consult obtained and appreciate their input. (2) Severe sepsis: Code(s): A41.9 - Sepsis, unspecified organism; R65.20 - Severe sepsis without septic shock Status: Acute Assessment and Plan: Present on admission and supported by hypotension, fever, leukocytosis, elevated lactic acid, and acute kidney injury. Lactic acid level has normalized with IV fluid rehydration and blood pressures improved without pressors and continue hydration. Central line placed in the ED though he did not require vasopressors Sepsis presumably due to urinary tract infection and/or pancreatitis, or cdiff 1/2 BC+ for staph epi possibly contaminant; Day 9 of Vanco (3) Complicated urinary tract infection: Code(s): N39.0 - Urinary tract infection, site not specified Status: Acute Assessment and Plan: Secondary to indwelling Cavanaugh catheter. UCx growing 3+ organisms each >10K. BCx groiwn CNStaph (1of2 bottles). Currently on on cefepime and Vanco. He has completed 8 days so will stop Cefepime and monitor. (4) Acute kidney injury: Code(s): N17.9 - Acute kidney failure, unspecified Status: Acute Assessment and Plan: Cr 7.4 on admission. Likely multifactorial in etiology. He appears quite dry on exam on admission and it sounds as though his Cavanaugh catheter was not draining well due to pus in the urine, and thus there may be a component of postobstructive uropathy. Cavanaugh catheter was changed and IV fluids started. TCK as high as 1400 before normalizing. Renal ultrasound no obstruction. Creatinine is down to 1.3 today and stable. Continue fluids (5) C. difficile diarrhea: Code(s): A04.72 - Enterocolitis due to Clostridium difficile, not specified as recurrent Status: Acute Assessment and Plan: Having soft stools. Stool culture negative. Stool for cdiff by pcr was +. WBC 28K but has trended down to 10-11K now. Continue IV Flagyl. He has not been on oral meds. Sister relates he has had bad cdiff in past with watery stool. May be chronic carrier? Continue IV flagyl only for rx. (6) Acute respiratory failure with hypoxia: Code(s): J96.01 - Acute respiratory failure with hypoxia Status: Acute Assessment and Plan: Chest x-ray is unremarkable on admission and he is negative for COVID-19. Repeat chest x-ray 03/20 no real change. Pulmonary embolism is a consideration with elevated D-dimer but V/Q scan was intermediate probability and negative Doppler for DVT. He was started on IV heparin that was stopped 03/21 due to falling hgb and occult blood in stool. Hypoxia possibly related to aspiration. Down to 1L. Wean O2 as tolerated. (7) Acute blood loss anemia: Code(s): D62 - Acute posthemorrhagic anemia Status: Acute Assessment and Plan: History of iron deficiency anemia. Fe and TIBC both low compatible with chronic disease. Hgb 10.7 on admission but dropped to 7-8 range and was stable up until 03/23 when dropped to 6.8. He received 1U PRBC and Hgb has been stable since in the 7-8 range. EGD showing gastric and duodenal ulcers. Continue to monitor. (8) Dysphagia: Code(s): R13.10 - Dysphagia, unspecified Status: Acute Assessment and Plan: Patient failed modified juana
--- NOTE | 2020-03-27 10:36 | PCDIET ---
Nutrition Follow-Up Complete: Swallowing Difficulties as related to Dysphasia as evidence by NPO/failed MBS. Meet estimated nutritional needs Goal:Progressing towards goal. Continue goal. Pt current nutrition is NPO/ Clinimix 5/15 at 40ml/hr. Nutrition recommendation: Agree Last recorded weight is 69.2 kg (Up from assessed wt of 62.1kg) Bowel Motility: Pt states bowels moving Labs Reviewed: Glucose 160, Albumin 2.8, K 3.3, Hgb 7.6 Meds Noted:Vanc, Insulin, Lopressor, Flagyl, Protonix Additional Notes: Pt on TPN 5/15 at 40ml/hr providing 1182 kcals and 48g protein, meeting 67% of kcal needs. Plans for PEG placement tomorrow. Recommend Glucerna 1.2 starting at 10ml/hr, advancing q 6 hrs to goal of 70ml/hr. At goal, EN will provide 1848 kcals and 92g protein over 22hrs. Discussed with RN. Will monitor every tf
[2020-03-27] MEDS: KCL 20 MEQ/SW 100 ML 100 ML 50 MEQ IVPB (11:02)
--- NOTE | 2020-03-27 11:54 | WPDANESEPPF ---
Anes - Initial Pre Proc Eval Procedure: Operation Date: 03/23/20 17:20 Proposed Procedures p Esophagogastroduodenoscopy - jL Rosario MD Operation Date: 03/27/20 12:00 Proposed Procedures p Esophagogastroduodenoscopy - Sen Ward MD s Percutaneous Endoscopic Gastrostomy - Sen Ward MD Date/Time: 03/27/20 11:54 Surgeon: Artur Gilmore MD Pre Op Diagnosis: Fever and hypoxia. Patient Data Age: 60 Gender: M Height: 6 ft Weight: 69.2 kg Last Vital Signs Temp 98.9 F 03/27/20 06:00 Pulse 88 03/27/20 08:25 Resp 18 03/27/20 08:25 BP 135/48 L 03/27/20 06:00 Pulse Ox 94 03/27/20 08:15 Allergies Allergy/AdvReac Type Severity Reaction Status Date / Time Penicillins Allergy Unknown Verified 03/19/20 06:50 Home Medications Medication Instructions Recorded Confirmed Type acetaminophen [Tylenol Extra 500 mg PO Q6H PRN 03/19/20 03/19/20 History Strength] amlodipine 10 mg PO DAILY 03/19/20 03/19/20 History aspirin 81 mg PO DAILY 03/19/20 03/19/20 History atorvastatin 80 mg PO HS 03/19/20 03/19/20 History ferrous sulfate 325 mg PO EVERY OTHER DAY 03/19/20 03/19/20 History gabapentin 400 mg PO TID 03/19/20 03/19/20 History metoprolol succinate 100 mg PO DAILY 03/19/20 03/19/20 History oxycodone 10 mg PO Q4H PRN 03/19/20 03/19/20 History polyethylene glycol 3350 17 g PO DAILY 03/19/20 03/19/20 History silver sulfadiazine [Silvadene] 1 applic TOPICAL Q12H 03/19/20 03/19/20 History tamsulosin 0.8 mg PO HS 03/19/20 03/19/20 History Laboratory Tests 03/26/20 03/26/20 03/26/20 12:47 17:13 20:26 WBC RBC Hgb Hct MCV MCH MCHC RDW Plt Count MPV Immature Gran % (Auto) Neut % (Auto) Lymph % (Auto) [place] % (Auto) Eos % (Auto) Baso % (Auto) Lymph # (Auto) [place] # (Auto) Eos # (Auto) Baso # (Auto) Abs Immat Gran (auto) Absolute Neuts (auto) Absolute Nucleated RBC Nucleated RBC % APTT Sodium Potassium Chloride Carbon Dioxide BUN Creatinine Estim Creat Clear Calc Estimated GFR Glucose POC Capillary Glucose 149 mg/dl H mg/dl 136 mg/dl H mg/dl 138 mg/dl H mg/dl (65-105) (65-105) (65-105) Calcium Phosphorus Magnesium Transferrin Total Bilirubin AST ALT Alkaline Phosphatase Total Protein Albumin Vancomycin Trough 03/26/20 03/27/20 03/27/20 23:57 05:24 05:24 WBC 11.8 K/mm3 H K/mm3 (4.5-10.0) RBC 3.04 M/mm3 L M/mm3 (4.6-6.20) Hgb 7.6 g/dL L g/dL (14.0-18.0) Hct 24.5 % L % (42.0-52.0) MCV 80.6 fl fl (80-100) MCH 25.0 pg L pg (26-34) MCHC 31.0 g/dl L g/dl (32-36) RDW 18.7 % H % (11.5-14.5) Plt Count 382 k/mm3 H k/mm3 (150-375) MPV 9.5 fl fl (7.4-10.4) Immature Gran % (Auto) 0.7 % H % (0-0.5) Neut % (Auto) 83.8 % H % (45.5-73.1) Lymph % (Auto) 8.4 % L % (18.3-44.2) [place] % (Auto) 4.1 % % (2.6-8.5) Eos % (Auto) 2.7 % % (0-4.4) Baso % (Auto) 0.3 % % (0.2-1.2) Lymph # (Auto) 0.99 K/mm3 K/mm3 (0.9-3.2) [place] # (Auto) 0.5 K/mm3 K/mm3 (0.1-0.6) Eos # (Auto) 0.3 K/mm3 K/mm3 (0-0.3) Baso # (Auto) 0.0 K/mm3 K/mm3 (0.0-0.1) Abs Immat Gran (auto) 0.08 K/mm3 H K/mm3 (0.00-0.031) Absolute Neuts (auto) 9.9 K/mm3 H K/mm3 (1.3-6.7) Absolute Nucleated RBC 0.0 K/m
[2020-03-27] MEDS: LACTATED RINGERS 1,000 ML 150 ML IV CONT (11:55)
[2020-03-27 11:58] LABS: Glucose Point of Care 150 (65-105)
--- NOTE | 2020-03-27 13:28 | SUR.PHASEII ---
Pt recovering. Answering yes and no questions. No c/o pain. PEG site clean, dry, and intact.
[2020-03-27 13:50] LABS: Vancomycin Trough 14.7 ug/mL (10.0-20.0)
[2020-03-27 14:24] LABS: Glucose Point of Care 123 (65-105)
[2020-03-27] MEDS: levoFLOXacin 500 MG/D5W 100 ML 500 MG/100 ML BAG 100 MG IVPB (16:45)
[2020-03-27 17:52] LABS: Triglycerides 144 mg/dL (<150)
[2020-03-27] MEDS: INSULIN ASPART (*BKC) 100 UNITS/ML SUB-Q (18:03)
[2020-03-27] MEDS: MAGNESIUM SULF 2 GM/WATER 50ML 2 GM/50 ML BAG IVPB (18:45)
[2020-03-27 20:15] LABS: Glucose Point of Care 265 (65-105)
[2020-03-28] VITALS (28 sets, daily range): BP systolic 96–121; BP diastolic 55–83; PULSE 80–109; RESP 18; TEMP 36.2–37; O2SAT 97–100
[2020-03-28] MEDS: ALBUTEROL SULFATE NEB 2.5 MG/0.5 ML INH 5 MG INHALATION ×4 (01:41→20:43)
[2020-03-28] MEDS: IPRATROPIUM BR 0.02% INH SOLN 0.5 MG/2.5 ML VIAL INHALATION ×4 (01:42→20:43)
[2020-03-28 05:09] LABS: Glucose Point of Care 107 (65-105)
[2020-03-28] MEDS: metroNIDAZOLE 500 MG/ISO 100ML 500 MG/100 ML BAG 100 MG IVPB (05:38)
[2020-03-28 05:58] LABS: Mean Corpuscular Hemoglobin 25.1 pg (26-34); Mean Corpuscular Volume 80.9 fl (80-100); Mean Platelet Volume 9.8 fl (7.4-10.4); Platelet Count Result 402 k/mm3 (150-375); Red Blood Count 2.15 M/mm3 (4.6-6.20); Red Cell Distribution Width 18.8 % (11.5-14.5); White Blood Count 17.2 K/mm3 (4.5-10.0)
[2020-03-28 06:07] LABS: Blood Urea Nitrogen 22 mg/dL (9-20); Carbon Dioxide 22 mmol/L (22-30); Chloride 107 mmol/L (98-107); Estimated CRCL calculation 26 ml/min; Estimated Glomerular Filt Rate 32; Glucose 132 mg/dL (75-110); Magnesium 1.9 mg/dL (1.6-2.3); Phosphorus 3.9 mg/dL (2.5-4.5); Potassium 3.8 mmol/L (3.4-5.0); Sodium 136 mmol/L (137-145)
[2020-03-28 06:13] LABS: Hematocrit 17.4 % (42.0-52.0); Hemoglobin 5.4 g/dL (14.0-18.0)
[2020-03-28] MEDS: levETIRAcetam IV 750 MG in DEXTROSE 5% 100 ML 430 MG IVPB ×2 (08:13→20:05)
--- NOTE | 2020-03-28 08:20 | WPDANESPN ---
Anes - Prog Note Post-Op Date/Time: 03/28/20 08:20 Cardiovascular status: normal Respiratory status: normal Airway patency: baseline Mental status: baseline Post-Op hydration status: normal Vital Signs: Last Vital Signs Temp 36.5 C 03/28/20 05:57 Pulse 103 H 03/28/20 05:57 Resp 18 03/28/20 05:57 BP 96/55 L 03/28/20 05:57 Pulse Ox 100 03/28/20 05:57 I/O: Intake & Output 03/27/20 03/28/20 03/28/20 23:59 07:59 15:59 Intake Total 2105 107.5 Output Total 50 Balance 2105 -50 107.5 Laboratory Tests 03/28/20 05:46 03/28/20 05:46 03/27/20 03/27/20 03/27/20 08:23 11:31 11:54 WBC RBC Hgb Hct MCV MCH MCHC RDW Plt Count MPV Sodium Potassium Chloride Carbon Dioxide BUN Creatinine Estim Creat Clear Calc Estimated GFR Glucose POC Capillary Glucose 146 H 150 H Calcium Phosphorus Magnesium Triglycerides Vancomycin Trough 14.7 Blood Type Antibody Screen Crossmatch 03/27/20 03/27/20 03/27/20 13:22 17:18 17:20 WBC RBC Hgb Hct MCV MCH MCHC RDW Plt Count MPV Sodium Potassium Chloride Carbon Dioxide BUN Creatinine Estim Creat Clear Calc Estimated GFR Glucose POC Capillary Glucose 123 H 265 H Calcium Phosphorus Magnesium Triglycerides 144 Vancomycin Trough Blood Type Antibody Screen Crossmatch 03/28/20 03/28/20 03/28/20 00:18 05:46 05:46 WBC 17.2 H RBC 2.15 L Hgb 5.4 L* Hct 17.4 L* MCV 80.9 MCH 25.1 L MCHC 31.0 L RDW 18.8 H Plt Count 402 H MPV 9.8 Sodium 136 L Potassium 3.8 Chloride 107 Carbon Dioxide 22 BUN 22 H Creatinine 2.50 H Estim Creat Clear Calc 26 Estimated GFR 32 L Glucose 132 H POC Capillary Glucose 107 Calcium 8.0 L Phosphorus 3.9 Magnesium 1.9 Triglycerides Vancomycin Trough Blood Type Antibody Screen Crossmatch 03/28/20 06:53 WBC RBC Hgb Hct MCV MCH MCHC RDW Plt Count MPV Sodium Potassium Chloride Carbon Dioxide BUN Creatinine Estim Creat Clear Calc Estimated GFR Glucose POC Capillary Glucose Calcium Phosphorus Magnesium Triglycerides Vancomycin Trough Blood Type A Positive Antibody Screen Negative Crossmatch See Detail Microbiology 03/19/20 06:45 Blood Blood Culture - Final Coag negative Staphylococcus Post-procedural complaints: none Patient Feedback: Patient satisfied with anesthetic care.
[2020-03-28] MEDS: SODIUM CHLORIDE 0.9% IV 250 ML 30 ML IV CONT (09:14)
[2020-03-28] MEDS: PANTOPRAZOLE SODIUM IV 40 MG VIAL IV PUSH ×2 (09:18→20:05)
--- NOTE | 2020-03-28 11:42 | WPDGIPROGNO ---
Progress Note: A&P Assessment and Plan (1) Aphasia: Code(s): R47.01 - Aphasia Status: Acute Assessment and Plan: recent cva with several comorbidities, he is frail and ill (2) Dysphagia: Code(s): R13.10 - Dysphagia, unspecified Status: Acute Assessment and Plan: peg placed yesterday, will change formula to glucerna and increase rate as tolerated (3) Seizure: Code(s): R56.9 - Unspecified convulsions Status: Acute Assessment and Plan: with CVA, neurology on board (4) Acute blood loss anemia: Code(s): D62 - Acute posthemorrhagic anemia Status: Acute Assessment and Plan: noted dropp in hb, no obvious GIB and he is getting transfusion continue to monitor hb and for signs of any bleeding (5) Acute renal failure: Code(s): N17.9 - Acute kidney failure, unspecified Status: Acute Assessment and Plan: increase creatinine today, repeat blood work again and continue with medical care earlier during hospitalization also had renal failure (6) Peptic ulcer disease: Code(s): K27.9 - Peptic ulcer, site unspecified, unspecified as acute or chronic, without hemorrhage or perforation Status: Acute Assessment and Plan: found again gastric ulcers without bleeding continue with ppi bid (7) Swallowing impairment: Code(s): R13.10 - Dysphagia, unspecified Status: Acute (8) C. difficile diarrhea: Code(s): A04.72 - Enterocolitis due to Clostridium difficile, not specified as recurrent Status: Acute Subjective Date/time seen: 03/28/20 11:42 Interval history: I placed PEG tube endoscopically yesterday, tolerating at 30 ml/h. Noted hb dropped to 5.5 but no report of GIB or melena per RN, now getting blood transfusion Review of Systems Review of Systems: ROS unobtainable: Yes unobtainable due to mental status Exam Const: Other: chronically ill appearing HENMT: General nose exam: Normal nares present Eyes: General: appearance normal, both eyes and all related structures Neck: Neck: no JVD Resp: Auscultation: diminished lung sounds Cardio: Rate: regular rate Rhythm: regular rhythm GI: Inspection: non-distended GI Palp: Yes Soft to palpation, No Tenderness to palpation present (GI) and No Guarding due to palpation present (GI) Auscultation: normal bowel sounds Other: g-tube in position, 3 cm lul, no tenderness around site Skin: General skin exam: pallor Neuro: Cognition (Neuro): abnormal cognition Other: general weakness- h/o cva, unchanged Psych: Other: he is not talking much- sister at bedside Objective Data Vital Signs Vital Signs: Vital Signs - 24 hr 03/27/20 11:59 03/27/20 12:00 03/27/20 12:57 Temperature 98.9 F Pulse Rate 87 87 82 Respiratory Rate 20 20 Blood Pressure 139/84 141/88 H Pulse Oximetry 100 100 03/27/20 13:07 03/27/20 13:17 03/27/20 14:20 Temperature Pulse Rate 82 85 83 Respiratory Rate 20 20 18 Blood Pressure 158/88 H 129/79 Pulse Oximetry 100 100 03/27/20 14:28 03/27/20 16:00 03/27/20 20:00 Temperature 98.3 F Pulse Rate 88 103 H 99 Respiratory Rate 18 18 Blood Pressure 118/66 Pulse Oximetry 100 03/27/20 20:33 03/27/20 20:34 03/27/20 20:45 Temperature Pulse Rate 84 84 Respiratory Rate 18 18 Blood Pressure Pulse Oximetry 94 03/27/20 22:00 03/28/20 00:00 03/28/20 00:19 Temperature 98.5 F Pulse Rate 106 H 109 H 109 H Respiratory Rate 18 Blood Pressure 99/66 L 98/67 L Pulse Oximetry 100 03/28/20 00:37 03/28/20 01:43 03/28/20 01:50 Temperature Pulse Rate 109 H 82 84 Respiratory Rate 18 18 Blood Pressure Pulse Oximetry 03/28/20 02:00 03/28/20 03:44 03/28/20 04:00 Temperature 98.2 F Pulse Rate 109 H 109 H 104 H Respiratory Rate 18 Blood Pressure 101/70 96/62 L Pulse Oximetry 100 03/28/20 05:57 03/28/20 09:26 03/28/20 09:33 Temperature 97.7 F Pulse Rate 103 H
[2020-03-28 11:44] LABS: Glucose Point of Care 118 (65-105)
--- NOTE | 2020-03-28 11:52 | PM.IMPN ---
Progress Note: A&P Assessment and Plan (1) Seizure: Code(s): R56.9 - Unspecified convulsions Status: Acute Assessment and Plan: New onset seizures noted overnight 03/25/20. CT brain showing old infarct but nothing acute. Possibly related to hx of CVA. 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 Continue Keppra. Neuro consult obtained and appreciate their input. Continue Keppra. (2) Severe sepsis: Code(s): A41.9 - Sepsis, unspecified organism; R65.20 - Severe sepsis without septic shock Status: Acute Assessment and Plan: Present on admission and supported by hypotension, fever, leukocytosis, elevated lactic acid, and acute kidney injury. Lactic acid level has normalized with IV fluid rehydration and blood pressures improved without pressors and continue hydration. Central line placed in the ED though he did not require vasopressors Sepsis presumably due to urinary tract infection and/or pancreatitis, or cdiff 1/2 BC+ for staph epi possibly contaminant; Day 10 of Vanco (3) Complicated urinary tract infection: Code(s): N39.0 - Urinary tract infection, site not specified Status: Acute Assessment and Plan: Secondary to indwelling Cavanaugh catheter. UCx growing 3+ organisms each >10K. BCx groiwn CNStaph (1of2 bottles). Currently on Vanco. He has completed 8 days of Cefepime and monitor. (4) Acute kidney injury: Code(s): N17.9 - Acute kidney failure, unspecified Status: Acute Assessment and Plan: Cr 7.4 on admission. Likely multifactorial in etiology. He appears quite dry on exam on admission and it sounds as though his Cavanaugh catheter was not draining well due to pus in the urine, and thus there may be a component of postobstructive uropathy. Cavanaugh catheter was changed and IV fluids started. TCK as high as 1400 before normalizing. Renal ultrasound no obstruction. Creatinine dropped to 1.3 but today has doubled to 2.5. Lab error? Repeat BMP (5) C. difficile diarrhea: Onset Date: ~03/2020 Code(s): A04.72 - Enterocolitis due to Clostridium difficile, not specified as recurrent Status: Acute Assessment and Plan: Having soft stools but not having diarrhea. Stool culture negative. Stool for cdiff by pcr was +. WBC 28K but has trended down to 10-11K up until today with WBC at 17K now. Sister relates he has had bad cdiff in past with watery stool. May be chronic carrier? Currently on IV flagyl only for rx. Will add vanco by NGT and stop flagyl (6) Acute respiratory failure with hypoxia: Code(s): J96.01 - Acute respiratory failure with hypoxia Status: Acute Assessment and Plan: Chest x-ray is unremarkable on admission and he is negative for COVID-19. Repeat chest x-ray 03/20 no real change. Pulmonary embolism is a consideration with elevated D-dimer but V/Q scan was intermediate probability and negative Doppler for DVT. He was started on IV heparin that was stopped 03/21 due to falling hgb and occult blood in stool. Hypoxia possibly related to aspiration. Down to 1L at 100%. Wean O2 as tolerated. (7) Acute blood loss anemia: Code(s): D62 - Acute posthemorrhagic anemia Status: Acute Assessment and Plan: History of iron deficiency anemia. Fe and TIBC both low compatible with chronic disease. Hgb 10.7 on admission but dropped to 7-8 range and was stable up until 03/23 when dropped to 6.8. He received 1U PRBC and Hgb had been stable since in the 7-8 range. Hemoglobin this morning was 5.4. Could be lab error if drawn out of the line but patient is having soft blood pressures which could be related to the anemia. No evidence
--- NOTE | 2020-03-28 12:00 | PCNFU ---
Nutrition Follow-Up Complete: Swallowing Diffulties as related to Dysphagia as evdienced by NPO/failed MBS. Goal: Meet estimated nutritional needs Progressing towards goal. Pt current nutrition is Glucerna 1.2@ 70 ml/hr. Nutrition recommendation:Agree Last recorded weight is 65.1 kg. Bowel Motility:+BM noted on 03/25 Labs Reviewed:Na 136,GFR 32, BUN 22,Cr 2.5,Glu 132 Meds Noted:Novolog, NS at 30 ml/hr, Vanco Additional Notes: Patient received PEG. Tube feedings changed from Jevity 1.5 to Glucerna 1.2 for better blood sugar control. Patient currently at 30 ml/hr with orders to advance every 6 hours to goal rate of 70 ml/hr. Nursing states patient is tolerating feedings well at this time. Agree with tube feedings orders which will provide 1848 kcals and 92 gms protein. Monitoring: Will monitor every Tuesday/Tuesday.
[2020-03-28 13:21] LABS: Glucose Point of Care 116 (65-105)
[2020-03-28 18:28] LABS: Hemoglobin 7.8 g/dL (14.0-18.0)
[2020-03-28] MEDS: VANCOMYCIN ORAL 125 MG/2.5 ML SYRUP FEED TUBE (20:05)
[2020-03-28 21:31] LABS: Glucose Point of Care 139 (65-105)
[2020-03-29] VITALS (14 sets, daily range): BP systolic 130–151; BP diastolic 64–86; PULSE 95–108; RESP 16–20; TEMP 36.8–37.2; O2SAT 94–98
[2020-03-29] MEDS: VANCOMYCIN ORAL 125 MG/2.5 ML SYRUP FEED TUBE ×5 (00:23→23:56)
[2020-03-29 00:43] LABS: Hematocrit 23.2 % (42.0-52.0); Hemoglobin 7.7 g/dL (14.0-18.0)
[2020-03-29 01:53] LABS: Glucose Point of Care 112 (65-105)
[2020-03-29 06:09] LABS: Basophils Percent Auto 0.3 % (0.2-1.2); Eosinophils Absolute Auto 0.2 K/mm3 (0-0.3); Eosinophils Percent Auto 1.8 % (0-4.4); Hematocrit 23.1 % (42.0-52.0); Hemoglobin 7.6 g/dL (14.0-18.0); Immature Granulocyte Absolute 0.11 K/mm3 (0.00-0.031); Immature Granulocyte Percent A 0.8 % (0-0.5); Lymphocytes Absolute Auto 1.03 K/mm3 (0.9-3.2); Lymphocytes Percent Auto 7.8 % (18.3-44.2); Mean Corpuscular HGB Conc 32.9 g/dl (32-36); Mean Corpuscular Hemoglobin 27.6 pg (26-34); Mean Platelet Volume 9.4 fl (7.4-10.4); Monocytes Absolute Auto 0.6 K/mm3 (0.1-0.6); Monocytes Percent Auto 4.5 % (2.6-8.5); Neutrophils Absolute Auto 11.2 K/mm3 (1.3-6.7); Neutrophils Percent Auto 84.8 % (45.5-73.1); Platelet Count Result 371 k/mm3 (150-375); Red Blood Count 2.75 M/mm3 (4.6-6.20); White Blood Count 13.3 K/mm3 (4.5-10.0)
[2020-03-29 06:40] LABS: Alanine Aminotransferase 11 U/L (4-50); Alkaline Phosphatase 102 U/L (38-126); Aspartate Amino Transferase 18 U/L (17-59); Bilirubin,Total 0.3 mg/dL (0.2-1.3); Blood Urea Nitrogen 21 mg/dL (9-20); Calcium 8.2 mg/dL (8.4-10.2); Carbon Dioxide 21 mmol/L (22-30); Chloride 108 mmol/L (98-107); Estimated CRCL calculation 27 ml/min; Estimated Glomerular Filt Rate 33; Glucose 118 mg/dL (75-110); Magnesium 1.8 mg/dL (1.6-2.3); Phosphorus 3.7 mg/dL (2.5-4.5); Potassium 3.8 mmol/L (3.4-5.0); Sodium 138 mmol/L (137-145)
[2020-03-29 07:54] LABS: Glucose Point of Care 115 (65-105)
[2020-03-29] MEDS: ALBUTEROL SULFATE NEB 2.5 MG/0.5 ML INH 5 MG INHALATION ×2 (08:23→20:55)
[2020-03-29] MEDS: IPRATROPIUM BR 0.02% INH SOLN 0.5 MG/2.5 ML VIAL INHALATION ×2 (08:23→20:55)
--- NOTE | 2020-03-29 08:34 | WPDGIPROGNO ---
Progress Note: A&P Assessment and Plan (1) Dysphagia: Code(s): R13.10 - Dysphagia, unspecified Status: Acute Assessment and Plan: peg placed 03/27, tolerating tube feeding (2) Aphasia: Code(s): R47.01 - Aphasia Status: Acute Assessment and Plan: recent cva with several comorbidities, he is frail and ill (3) Seizure: Code(s): R56.9 - Unspecified convulsions Status: Acute Assessment and Plan: with CVA, neurology on board (4) Acute blood loss anemia: Code(s): D62 - Acute posthemorrhagic anemia Status: Acute Assessment and Plan: hb stable 7.7 after blood transfusion yesterday, no report of overt gib (5) Acute renal failure: Code(s): N17.9 - Acute kidney failure, unspecified Status: Acute Assessment and Plan: by primary team (6) Peptic ulcer disease: Code(s): K27.9 - Peptic ulcer, site unspecified, unspecified as acute or chronic, without hemorrhage or perforation Status: Acute Assessment and Plan: found again gastric ulcers without bleeding continue with ppi bid (7) Swallowing impairment: Code(s): R13.10 - Dysphagia, unspecified Status: Acute (8) C. difficile diarrhea: Code(s): A04.72 - Enterocolitis due to Clostridium difficile, not specified as recurrent Status: Acute Subjective Date/time seen: 03/29/20 08:34 Interval history: no new issues per RN, tolerating TF at 60 ml/h Review of Systems Review of Systems: All systems reviewed & are unremarkable except as noted in HPI and below Exam Const: Other: chronically ill appearing HENMT: General nose exam: Normal nares present Eyes: General: appearance normal, both eyes and all related structures Neck: Neck: no JVD Resp: Auscultation: diminished lung sounds Cardio: Rate: regular rate Rhythm: regular rhythm GI: Inspection: non-distended GI Palp: Yes Soft to palpation, No Tenderness to palpation present (GI) and No Guarding due to palpation present (GI) Auscultation: normal bowel sounds Other: g-tube in position, 3 cm lul, no tenderness around site Skin: General skin exam: pallor Neuro: Cognition (Neuro): abnormal cognition Other: general weakness- h/o cva, unchanged Psych: Other: he is not talking much Objective Data Vital Signs Vital Signs: Vital Signs - 24 hr 03/28/20 09:26 03/28/20 09:33 03/28/20 09:57 Temperature 98.2 F Pulse Rate 80 88 106 H Respiratory Rate 18 18 18 Blood Pressure 100/63 Pulse Oximetry 99 100 03/28/20 10:20 03/28/20 11:20 03/28/20 12:00 Temperature 98.6 F 97.2 F L Pulse Rate 105 H 94 99 Respiratory Rate 18 18 Blood Pressure 101/60 105/75 Pulse Oximetry 100 100 03/28/20 12:20 03/28/20 12:55 03/28/20 13:13 Temperature 97.8 F 98.2 F 98.4 F Pulse Rate 90 95 96 Respiratory Rate 18 18 18 Blood Pressure 101/70 99/68 L 108/65 Pulse Oximetry 100 100 100 03/28/20 13:20 03/28/20 14:20 03/28/20 14:56 Temperature 98.4 F 97.8 F 97.8 F Pulse Rate 96 91 92 Respiratory Rate 18 18 18 Blood Pressure 108/65 110/70 110/71 Pulse Oximetry 100 99 100 03/28/20 15:55 03/28/20 16:00 03/28/20 16:09 Temperature 98.2 F Pulse Rate 90 95 92 Respiratory Rate 18 18 Blood Pressure 120/83 Pulse Oximetry 100 03/28/20 16:18 03/28/20 20:00 03/28/20 22:00 Temperature 98.3 F Pulse Rate 88 95 99 Respiratory Rate 18 18 Blood Pressure 121/73 Pulse Oximetry 99 97 03/29/20 00:00 03/29/20 04:00 03/29/20 06:00 Temperature 98.2 F Pulse Rate 98 97 99 Respiratory Rate 18 Blood Pressure 130/71 Pulse Oximetry 98 03/29/20 08:23 03/29/20 08:24 03/29/20 08:31 Temperature Pulse Rate 96 96 Respiratory Rate 16 16 Blood Pressure Pulse Oximetry 94 Intake/Output Intake/Output: Intake & Output 03/26/20 03/27/20 03/28/20 03/29/20 23:59 23:59 23:59 23:59 Intake Total 1815.0 2305 1390.5 Output Total 650 400 300 350 Balance 1165.0 19
[2020-03-29] MEDS: levETIRAcetam IV 750 MG in DEXTROSE 5% 100 ML 430 MG IVPB (08:51)
[2020-03-29] MEDS: PANTOPRAZOLE SODIUM IV 40 MG VIAL IV PUSH (08:51)
[2020-03-29 12:31] LABS: Glucose Point of Care 113 (65-105)
[2020-03-29 14:16] LABS: Vancomycin Trough 24.3 ug/mL (10.0-20.0)
--- NOTE | 2020-03-29 15:35 | PM.IMPN ---
Progress Note: A&P Assessment and Plan (1) Seizure: Code(s): R56.9 - Unspecified convulsions Status: Acute Assessment and Plan: New onset seizures noted overnight 03/25/20. CT brain showing old infarct but nothing acute. Possibly related to hx of CVA. 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 No evidence of recurrence. Neuro consult obtained and appreciate their input. Continue Keppra. (2) Severe sepsis: Code(s): A41.9 - Sepsis, unspecified organism; R65.20 - Severe sepsis without septic shock Status: Acute Assessment and Plan: Present on admission and supported by hypotension, fever, leukocytosis, elevated lactic acid, and acute kidney injury. Lactic acid level has normalized with IV fluid rehydration and blood pressures improved without pressors and continue hydration. Central line placed in the ED though he did not require vasopressors Sepsis presumably due to urinary tract infection and/or pancreatitis, or cdiff 1/2 BC+ for staph epi possibly contaminant; Day 11 of Vanco (3) Complicated urinary tract infection: Code(s): N39.0 - Urinary tract infection, site not specified Status: Acute Assessment and Plan: Secondary to indwelling Cavanaugh catheter. UCx growing 3+ organisms each >10K. BCx groiwn CNStaph (1of2 bottles). Currently on Vanco. He has completed 8 days of Cefepime. Continue to monitor. (4) Acute kidney injury: Code(s): N17.9 - Acute kidney failure, unspecified Status: Acute Assessment and Plan: Cr 7.4 on admission. Likely multifactorial in etiology. He appears quite dry on exam on admission and it sounds as though his Cavanaugh catheter was not draining well due to pus in the urine, and thus there may be a component of postobstructive uropathy. Cavanaugh catheter was changed and IV fluids started. TCK as high as 1400 before normalizing. Renal ultrasound no obstruction. Creatinine dropped to 1.3. The day after the PEG placed, Cr doubled to 2.5 for unclear reason. No obvious events occurred i the GI suite. Cavanaugh has been flushed and appears to be functioning well. Cr 2.4 today. Releated to Vanco? Related to HoTN? Will stop Vanco. Continue to monitor. (5) C. difficile diarrhea: Code(s): A04.72 - Enterocolitis due to Clostridium difficile, not specified as recurrent Status: Acute Assessment and Plan: Having soft stools but not having diarrhea. Stool culture negative. Stool for cdiff by pcr was +. WBC 28K but has trended down to 10-11K. WBC jumped to 17K after EGD but better today. Sister relates he has had bad cdiff in past with watery stool. May be chronic carrier? Was on IV flagyl but changed to oral Vanco now.l (6) Acute respiratory failure with hypoxia: Code(s): J96.01 - Acute respiratory failure with hypoxia Status: Acute Assessment and Plan: Chest x-ray is unremarkable on admission and he is negative for COVID-19. Repeat chest x-ray 03/20 no real change. Pulmonary embolism is a consideration with elevated D-dimer but V/Q scan was intermediate probability and negative Doppler for DVT. He was started on IV heparin that was stopped 03/21 due to falling hgb and occult blood in stool. Hypoxia possibly related to aspiration. Down to 1L at 95%. Wean O2 as tolerated. (7) Acute blood loss anemia: Code(s): D62 - Acute posthemorrhagic anemia Status: Acute Assessment and Plan: History of iron deficiency anemia. Fe and TIBC both low compatible with chronic disease. Hgb 10.7 on admission but dropped to 7-8 range and was stable up until 03/23 when dropped to 6.8. He received 1U PRBC and Hgb had been stable si
[2020-03-29] MEDS: GABAPENTIN 400 MG CAPSULE PO (18:19)
[2020-03-29] MEDS: METOCLOPRAMIDE HCL INJ 10 MG/2 ML VIAL 5 MG IV PUSH ×2 (18:19→23:43)
[2020-03-29 18:35] LABS: Glucose Point of Care 108 (65-105)
[2020-03-29] MEDS: levETIRAcetam ORAL SOL 500 MG/5 ML UDC FEED TUBE (20:26)
[2020-03-29 23:56] LABS: Glucose Point of Care 108 (65-105)
[2020-03-30] VITALS (15 sets, daily range): BP systolic 140–170; BP diastolic 70–88; PULSE 91–102; RESP 16–20; TEMP 36.4–37.2; O2SAT 96–100
[2020-03-30] MEDS: METOCLOPRAMIDE HCL INJ 10 MG/2 ML VIAL 5 MG IV PUSH ×4 (06:02→23:44)
[2020-03-30] MEDS: VANCOMYCIN ORAL 125 MG/2.5 ML SYRUP FEED TUBE ×4 (06:03→23:44)
[2020-03-30] MEDS: LANSOPRAZOLE ORAL SUSP 30 MG/10 ML ORAL.SUSP FEED TUBE (06:03)
[2020-03-30 06:12] LABS: Glucose Point of Care 109 (65-105)
[2020-03-30 06:33] LABS: Mean Corpuscular HGB Conc 32.4 g/dl (32-36); Mean Corpuscular Hemoglobin 27.3 pg (26-34); Mean Corpuscular Volume 84.3 fl (80-100); Mean Platelet Volume 9.9 fl (7.4-10.4); Platelet Count Result 450 k/mm3 (150-375); Red Blood Count 2.49 M/mm3 (4.6-6.20); Red Cell Distribution Width 17.9 % (11.5-14.5); White Blood Count 16.9 K/mm3 (4.5-10.0)
[2020-03-30 06:35] LABS: Hemoglobin 6.8 g/dL (14.0-18.0)
[2020-03-30 06:47] LABS: Blood Urea Nitrogen 21 mg/dL (9-20); Calcium 8.2 mg/dL (8.4-10.2); Carbon Dioxide 23 mmol/L (22-30); Chloride 107 mmol/L (98-107); Estimated CRCL calculation 37 ml/min; Estimated Glomerular Filt Rate 47; Glucose 124 mg/dL (75-110); Magnesium 1.7 mg/dL (1.6-2.3); Phosphorus 3.5 mg/dL (2.5-4.5); Potassium 4.1 mmol/L (3.4-5.0); Sodium 137 mmol/L (137-145)
[2020-03-30] MEDS: ALBUTEROL SULFATE NEB 2.5 MG/0.5 ML INH 5 MG INHALATION ×3 (08:34→20:47)
[2020-03-30] MEDS: IPRATROPIUM BR 0.02% INH SOLN 0.5 MG/2.5 ML VIAL INHALATION ×3 (08:34→20:47)
--- NOTE | 2020-03-30 09:41 | PM.IMPN ---
Progress Note: A&P Assessment and Plan (1) Abdominal hematoma: Onset Date: ~03/2020 Code(s): S30.1XXA - Contusion of abdominal wall, initial encounter Status: Acute Assessment and Plan: Patient had GTube placed on 03/27/20. Hgb had been stable in the 7 range prior to procedure. No issues with the GTube placement. Hgb 5.4 on 03/28 and patient transfused 2U PRBC. Hgb climbed to 7 range and remained stable overnight and the next day (03/29). Hgb dropped again to 6.8 this morning and transfusion on 1U PRBC ordered. CT scan obtained showing a large acute hematoma anterior to transverse colon. Discussed with Dr Ware. Will trend HH. General surgery consult in case this worsens. (2) Seizure: Code(s): R56.9 - Unspecified convulsions Status: Acute Assessment and Plan: New onset seizures noted overnight 03/25/20. CT brain showing old infarct but nothing acute. Possibly related to hx of CVA. 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 No evidence of recurrence. Neuro consult obtained and appreciate their input. Continue Keppra. (3) Severe sepsis: Code(s): A41.9 - Sepsis, unspecified organism; R65.20 - Severe sepsis without septic shock Status: Acute Assessment and Plan: Present on admission and supported by hypotension, fever, leukocytosis, elevated lactic acid, and acute kidney injury. Lactic acid level has normalized with IV fluid rehydration and blood pressures improved without pressors and continue hydration. Central line placed in the ED though he did not require vasopressors Sepsis presumably due to urinary tract infection and/or pancreatitis, or cdiff 1/2 BC+ for staph epi possibly contaminant; Day 12 of Vanco. Blood cultures have been repeated (4) Complicated urinary tract infection: Code(s): N39.0 - Urinary tract infection, site not specified Status: Acute Assessment and Plan: Secondary to indwelling Cavanaugh catheter. UCx growing 3+ organisms each >10K. BCx groiwn CNStaph (1of2 bottles). Currently on Vanco. He has completed 8 days of Cefepime. Blood cultures repeated. Continue to monitor. Stop vancomycin if repeat blood cultures remain negative. (5) Acute kidney injury: Code(s): N17.9 - Acute kidney failure, unspecified Status: Acute Assessment and Plan: Cr 7.4 on admission. Likely multifactorial in etiology. He appears quite dry on exam on admission and it sounds as though his Cavanaugh catheter was not draining well due to pus in the urine, and thus there may be a component of post-obstructive uropathy. Cavanaugh catheter was changed and IV fluids started. TCK as high as 1400 before normalizing. Renal ultrasound showing no obstruction. Creatinine dropped to 1.3. The day after the PEG placed, Cr doubled to 2.5 for unclear reason. Cavanaugh has been flushed and appears to be functioning well. No obvious events occurred in the GI suite but now discovered to abdominal hematoma. Cr better today at 1.8. Suspect ATN related to the severe anemia. Continue to monitor. (6) C. difficile diarrhea: Onset Date: ~03/2020 Code(s): A04.72 - Enterocolitis due to Clostridium difficile, not specified as recurrent Status: Acute Assessment and Plan: Having soft stools but not having aj diarrhea. Stool culture negative. Stool for cdiff by pcr was +. Sister relates he has had bad Cdiff in past with watery stool. May be chronic carrier? WBC 28K but has trended down to 10-11K. WBC jumped to 17K after EGD and remained elevated. Was on IV flagyl but changed to oral Vanco. (7) Acute respiratory failure with hypoxia: Code(s): J96.01 - Acute respiratory failure with hypoxia
[2020-03-30] MEDS: SODIUM CHLORIDE 0.9% IV 250 ML 30 ML IV CONT (10:33)
[2020-03-30] MEDS: TUBING, BLOOD PLUM PUMP TUBING 1 EACH XX (10:34)
[2020-03-30 11:55] LABS: Glucose Point of Care 154 (65-105)
--- NOTE | 2020-03-30 12:42 | WPDGIPROGNO ---
Progress Note: A&P Assessment and Plan (1) Abdominal hematoma: Code(s): S30.1XXA - Contusion of abdominal wall, initial encounter Status: Acute Assessment and Plan: noted acute hematoma in abdomen just anterior to transverse colon after g-tube placement but no free air or perforation, probably cause of drop of hemoglobin. Receiving another unit of blood transfusion continue with supportive care, avoid blood thinners and monitor h/h surgery consult in case status worsens (2) Dysphagia: Code(s): R13.10 - Dysphagia, unspecified Status: Acute Assessment and Plan: g-tube is working ok, continue with tube feeding (3) Diabetes: Code(s): E11.9 - Type 2 diabetes mellitus without complications Status: Acute (4) Hypertension: Code(s): I10 - Essential (primary) hypertension Status: Acute (5) Acute blood loss anemia: Code(s): D62 - Acute posthemorrhagic anemia Status: Acute Assessment and Plan: required blood transfusion (6) Peptic ulcer disease: Code(s): K27.9 - Peptic ulcer, site unspecified, unspecified as acute or chronic, without hemorrhage or perforation Status: Acute Assessment and Plan: had non-bleeding ulcers, continue with ppi (7) Acute on chronic renal failure: Code(s): N17.9 - Acute kidney failure, unspecified; N18.9 - Chronic kidney disease, unspecified Status: Acute Assessment and Plan: renal function improving now, continue to monitor and medical care Subjective Date/time seen: 03/30/20 12:42 Interval history: no melena but again lower hb, CT scan showed acute wall hematoma anterior to transverse colon. Review of Systems Review of Systems: ROS unobtainable: Yes unobtainable due to mental status Exam Const: Other: chronically ill appearing HENMT: General nose exam: Normal nares present Eyes: General: appearance normal, both eyes and all related structures Neck: Neck: no JVD Resp: Auscultation: diminished lung sounds Cardio: Rate: regular rate Rhythm: regular rhythm GI: Inspection: non-distended GI Palp: Yes Soft to palpation, Yes Tenderness to palpation present (GI) (minimally tender, no rebound or guarding) and No Guarding due to palpation present (GI) Auscultation: normal bowel sounds Other: g-tube in position, 3 cm lul, clean and dry Skin: General skin exam: pallor Neuro: Cognition (Neuro): abnormal cognition Other: general weakness- h/o cva, unchanged Psych: Other: he is not talking much Objective Data Vital Signs Vital Signs: Vital Signs - 24 hr 03/29/20 14:00 03/29/20 14:21 03/29/20 14:31 Temperature 98.3 F Pulse Rate 99 101 H 99 Respiratory Rate 18 18 18 Blood Pressure 131/64 Pulse Oximetry 95 03/29/20 20:55 03/29/20 21:01 03/29/20 21:07 Temperature Pulse Rate 98 98 101 H Respiratory Rate 18 20 18 Blood Pressure Pulse Oximetry 94 03/29/20 22:00 03/30/20 06:00 03/30/20 08:35 Temperature 99.0 F 98.8 F Pulse Rate 108 H 101 H Respiratory Rate 18 18 Blood Pressure 151/86 H 155/87 H Pulse Oximetry 97 96 96 03/30/20 08:37 03/30/20 08:46 03/30/20 09:54 Temperature 97.7 F Pulse Rate 98 92 102 H Respiratory Rate 18 18 20 Blood Pressure 154/71 H Pulse Oximetry 97 03/30/20 10:13 03/30/20 11:13 03/30/20 12:13 Temperature 97.6 F 98.1 F 98.0 F Pulse Rate 101 H 95 93 Respiratory Rate 18 16 18 Blood Pressure 150/70 H 159/86 H 160/78 H Pulse Oximetry 98 100 99 Intake/Output Intake/Output: Intake & Output 03/27/20 03/28/20 03/29/20 03/30/20 23:59 23:59 23:59 23:59 Intake Total 2305 1390.5 597.5 350 Output Total 400 300 750 400 Balance 1905 1090.5 -152.5 -50 Meds/Results Medications: Active Medications Generic Name Dose Route Start Last Admin Trade Name Freq PRN Reason Stop Dose Admin Acetaminophen 650 mg 03/29/20 16:00 Tylenol Elixir FEED TUBE Q6H PRN Mild Pain (1-3) or Fever Albu
[2020-03-30 12:51] LABS: Hematocrit 24.6 % (42.0-52.0); Hemoglobin 8.1 g/dL (14.0-18.0)
--- NOTE | 2020-03-30 14:53 | PM.CNGS ---
Assessment and Plan Assessment and plan (1) Abdominal hematoma: Onset Date: ~03/2020 Code(s): S30.1XXA - Contusion of abdominal wall, initial encounter Status: Acute Assessment and Plan: This appears to be acute. Most likely related to an area of bleeding in either the omentum or on the surface of the stomach after or during placement of the PEG tube. Hopefully it will resolve and resorb itself. As long as it is allowed to clot and we keep the patient off off blood thinners, it seems reasonable that we do not need to evacuate it (2) Acute on chronic renal failure: Onset Date: Unknown Code(s): N17.9 - Acute kidney failure, unspecified; N18.9 - Chronic kidney disease, unspecified Status: Acute Assessment and Plan: As per current measures (3) Aphasia: Onset Date: Unknown Code(s): R47.01 - Aphasia Status: Acute (4) Peptic ulcer disease: Onset Date: Unknown Code(s): K27.9 - Peptic ulcer, site unspecified, unspecified as acute or chronic, without hemorrhage or perforation Status: Acute Assessment and Plan: See recent endoscopy per ports. On medication for this. (5) Swallowing impairment: Onset Date: Unknown Code(s): R13.10 - Dysphagia, unspecified Status: Acute Assessment and Plan: Possibly leading to aspiration. Therefore patient required gastrostomy tube placement. (6) C. difficile diarrhea: Onset Date: ~03/2020 Code(s): A04.72 - Enterocolitis due to Clostridium difficile, not specified as recurrent Status: Acute Assessment and Plan: Patient being treated with vancomycin. Will need to keep in mind that there is a possibility that the hematoma could become infected. Therefore if patient patient in then next 2 weeks begins running a significant fever we may need to reimage the area. There did not seem to be any connection with the colon nor did the PEG tube seem to come close to the transverse colon in the area where this hematoma lies. (7) Dysphagia: Onset Date: Unknown Code(s): R13.10 - Dysphagia, unspecified Status: Acute (8) Dementia: Onset Date: Unknown Qualifiers: Dementia behavioral disturbance: without behavioral disturbance Dementia type: unspecified type Qualified Code(s): F03.90 - Unspecified dementia without behavioral disturbance Code(s): F03.90 - Unspecified dementia without behavioral disturbance Status: Acute (9) Cholelithiases: Onset Date: Unknown Code(s): K80.20 - Calculus of gallbladder without cholecystitis without obstruction Status: Acute Assessment and Plan: This is noted on the CT scan from earlier today. There did not appear to be any inflammation of the gallbladder. Additional Plan Agree with serial H&Hs. Transfuse to keep his hemoglobin above 7.0 Note patient has gallstones and so use of a more low-fat type 2 feeding is appropriate. If operative intervention becomes necessary we may need to do an open operation in view of his previous surgical history because the patient apparently has had a large abdominal laparotomy and may have significant adhesions. History of Present Illness Consult details Consult date: 03/30/20 Reason for consult: other (anemia with an intra-abdominal hematoma) Requesting physician: Chris Gilmore MD Narrative: Reason for consultation is the intra-abdominal hematoma after G-tube placement This patient has long-term problems listed below in the From his history and physical. I reviewed this as part of my consultation. Patient today states he does have some abdominal pain. Nurse reports he had been tolerating tube feedings well until they stopped after this CT was done until I saw the patient. Patient denies pain right at the G-tube site but does have some pain medially and slightly below that area. There is no significant bleeding around the G-tube site at
[2020-03-30] MEDS: levETIRAcetam ORAL SOL 500 MG/5 ML UDC FEED TUBE ×2 (15:11→22:03)
[2020-03-30] MEDS: GABAPENTIN 400 MG CAPSULE PO ×2 (15:12→18:02)
[2020-03-30] MEDS: ASPIRIN 81 MG CHEWABLE TABLET FEED TUBE (15:12)
[2020-03-30] MEDS: ATORVASTATIN 40 MG TABLET FEED TUBE (15:12)
[2020-03-30 18:05] LABS: Hematocrit 24.5 % (42.0-52.0); Hemoglobin 8.1 g/dL (14.0-18.0)
[2020-03-30 18:59] LABS: Glucose Point of Care 104 (65-105)
[2020-03-30] MEDS: METOPROLOL TARTRATE 25 MG TABLET FEED TUBE (22:07)
[2020-03-31] VITALS (11 sets, daily range): BP systolic 140–147; BP diastolic 82–85; PULSE 89–102; RESP 14–20; TEMP 36.6–36.9; O2SAT 92–96
[2020-03-31 01:08] LABS: Hematocrit 25.3 % (42.0-52.0); Hemoglobin 8.1 g/dL (14.0-18.0)
[2020-03-31] MEDS: VANCOMYCIN ORAL 125 MG/2.5 ML SYRUP FEED TUBE ×4 (05:32→23:16)
[2020-03-31] MEDS: LANSOPRAZOLE ORAL SUSP 30 MG/10 ML ORAL.SUSP FEED TUBE (05:32)
[2020-03-31] MEDS: METOCLOPRAMIDE HCL INJ 10 MG/2 ML VIAL 5 MG IV PUSH (05:32)
[2020-03-31 05:51] LABS: Glucose Point of Care 117 (65-105)
[2020-03-31 05:51] LABS: Glucose Point of Care 130 (65-105)
[2020-03-31 06:40] LABS: Hematocrit 25.7 % (42.0-52.0); Hemoglobin 8.3 g/dL (14.0-18.0); Mean Corpuscular HGB Conc 32.3 g/dl (32-36); Mean Corpuscular Hemoglobin 27.9 pg (26-34); Mean Corpuscular Volume 86.2 fl (80-100); Mean Platelet Volume 10.8 fl (7.4-10.4); Platelet Count Result 500 k/mm3 (150-375); Red Blood Count 2.98 M/mm3 (4.6-6.20); Red Cell Distribution Width 17.6 % (11.5-14.5); White Blood Count 15.9 K/mm3 (4.5-10.0)
[2020-03-31 06:57] LABS: Albumin Level 3.1 g/dL (3.5-5.1); Blood Urea Nitrogen 21 mg/dL (9-20); Calcium 8.6 mg/dL (8.4-10.2); Carbon Dioxide 26 mmol/L (22-30); Chloride 105 mmol/L (98-107); Estimated CRCL calculation 41 ml/min; Estimated Glomerular Filt Rate 53; Glucose 131 mg/dL (75-110); Lipase 474 U/L (23-300); Magnesium 1.6 mg/dL (1.6-2.3); Phosphorus 3.8 mg/dL (2.5-4.5); Potassium 4.2 mmol/L (3.4-5.0); Sodium 137 mmol/L (137-145)
[2020-03-31] MEDS: IPRATROPIUM BR 0.02% INH SOLN 0.5 MG/2.5 ML VIAL INHALATION ×3 (08:31→19:43)
[2020-03-31] MEDS: ALBUTEROL SULFATE NEB 2.5 MG/0.5 ML INH 5 MG INHALATION ×3 (08:31→19:43)
[2020-03-31] MEDS: ATORVASTATIN 40 MG TABLET FEED TUBE (09:57)
[2020-03-31] MEDS: levETIRAcetam ORAL SOL 500 MG/5 ML UDC FEED TUBE ×2 (09:57→20:52)
[2020-03-31] MEDS: GABAPENTIN 400 MG CAPSULE PO ×3 (09:57→17:32)
[2020-03-31] MEDS: METOPROLOL TARTRATE 25 MG TABLET FEED TUBE ×2 (09:57→20:52)
[2020-03-31] MEDS: ASPIRIN 81 MG CHEWABLE TABLET FEED TUBE (09:57)
--- NOTE | 2020-03-31 10:17 | WPDGIPROGNO ---
Progress Note: A&P Assessment and Plan (1) Abdominal hematoma: Onset Date: ~03/2020 Code(s): S30.1XXA - Contusion of abdominal wall, initial encounter Status: Acute Assessment and Plan: acute hematoma in abdominal wall just anterior to transverse colon after g-tube placement but no free air or perforation hemoglobin now is stable after blood transfusion, continue to monitor he is tolerating blood thinners continue with supportive care, avoid blood thinners and monitor h/h (2) Dysphagia: Onset Date: Unknown Code(s): R13.10 - Dysphagia, unspecified Status: Acute Assessment and Plan: g-tube is working ok, continue with tube feeding (3) Diabetes: Code(s): E11.9 - Type 2 diabetes mellitus without complications Status: Acute (4) Hypertension: Code(s): I10 - Essential (primary) hypertension Status: Acute (5) Acute blood loss anemia: Code(s): D62 - Acute posthemorrhagic anemia Status: Acute Assessment and Plan: required blood transfusion but hb stable more than 24 hours (6) Peptic ulcer disease: Onset Date: Unknown Code(s): K27.9 - Peptic ulcer, site unspecified, unspecified as acute or chronic, without hemorrhage or perforation Status: Acute Assessment and Plan: had non-bleeding ulcers, continue with ppi (7) Acute on chronic renal failure: Onset Date: Unknown Code(s): N17.9 - Acute kidney failure, unspecified; N18.9 - Chronic kidney disease, unspecified Status: Acute Assessment and Plan: renal function improving Subjective Date/time seen: 03/31/20 10:17 Interval history: no new events, tolerating tube feeding, similar abdominal discomfort Review of Systems Review of Systems: All systems reviewed & are unremarkable except as noted in HPI and below Exam Const: Other: chronically ill appearing HENMT: General nose exam: Normal nares present Eyes: General: appearance normal, both eyes and all related structures Neck: Neck: no JVD Resp: Auscultation: diminished lung sounds Cardio: Rate: regular rate Rhythm: regular rhythm GI: Inspection: non-distended GI Palp: Yes Soft to palpation, Yes Tenderness to palpation present (GI) (minimally tender, no rebound or guarding- unchanged) and No Guarding due to palpation present (GI) Auscultation: normal bowel sounds Other: g-tube in position, 3 cm lul, clean and dry Skin: General skin exam: pallor Neuro: Cognition (Neuro): abnormal cognition Other: general weakness- h/o cva, unchanged Extrem: Other: right BKA Psych: Other: he is not talking much Objective Data Vital Signs Vital Signs: Vital Signs - 24 hr 03/30/20 11:13 03/30/20 12:13 03/30/20 13:45 Temperature 98.1 F 98.0 F Pulse Rate 95 93 100 Respiratory Rate 16 18 18 Blood Pressure 159/86 H 160/78 H Pulse Oximetry 100 99 03/30/20 13:53 03/30/20 14:00 03/30/20 20:50 Temperature 97.9 F Pulse Rate 100 97 91 Respiratory Rate 18 16 18 Blood Pressure 170/88 H Pulse Oximetry 97 96 03/30/20 21:02 03/30/20 22:00 03/30/20 22:07 Temperature 99.0 F Pulse Rate 95 98 98 Respiratory Rate 18 18 Blood Pressure 140/86 Pulse Oximetry 97 03/31/20 06:00 03/31/20 08:34 03/31/20 08:47 Temperature 97.8 F Pulse Rate 91 96 95 Respiratory Rate 18 18 20 Blood Pressure 147/82 H Pulse Oximetry 95 96 03/31/20 09:57 Temperature Pulse Rate 100 Respiratory Rate Blood Pressure Pulse Oximetry Intake/Output Intake/Output: Intake & Output 03/28/20 03/29/20 03/30/20 03/31/20 23:59 23:59 23:59 23:59 Intake Total 1390.5 597.5 350 0 Output Total 810 448 9404 850 Balance 1090.5 -152.5 -700 -850 Meds/Results Medications: Active Medications Generic Name Dose Route Start Last Admin Trade Name Freq PRN Reason Stop Dose Admin Acetaminophen 650 mg 03/29/20 16:00 Tylenol Elixir FEED TUBE Q6H PRN Mild Pain (1-3) o
--- NOTE | 2020-03-31 11:01 | PM.IMPN ---
Progress Note: A&P Assessment and Plan (1) Abdominal hematoma: Onset Date: ~03/2020 Code(s): S30.1XXA - Contusion of abdominal wall, initial encounter Status: Acute Assessment and Plan: Patient had GTube placed on 03/27/20. Hgb had been stable in the 7 range prior to procedure. No issues with the GTube placement. Hgb 5.4 on 03/28 and patient transfused 2U PRBC. Hgb climbed to 7 range and remained stable overnight and the next day (03/29). On 03/30 however, Hgb dropped again to 6.8 and transfusion on 1U PRBC ordered. CT scan obtained showing a large acute hematoma anterior to transverse colon. Discussed with Dr Ware. Continue to trend HH. General surgery consulted but just monitoring for now. (2) Seizure: Code(s): R56.9 - Unspecified convulsions Status: Acute Assessment and Plan: New onset seizures noted overnight 03/25/20. CT brain showing old infarct but nothing acute. Possibly related to hx of CVA. 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 No evidence of recurrence. Neuro consult obtained and appreciate their input. Continue Keppra. (3) Severe sepsis: Code(s): A41.9 - Sepsis, unspecified organism; R65.20 - Severe sepsis without septic shock Status: Acute Assessment and Plan: Present on admission and supported by hypotension, fever, leukocytosis, elevated lactic acid, and acute kidney injury. Lactic acid level has normalized with IV fluid rehydration and blood pressures improved without pressors and continued hydration. Central line placed in the ED though he did not require vasopressors Sepsis presumably due to urinary tract infection and/or pancreatitis, or cdiff 1/2 BC+ for staph epi possibly contaminant; Day 13 of Vanco. Blood cultures have been repeated (4) Complicated urinary tract infection: Code(s): N39.0 - Urinary tract infection, site not specified Status: Acute Assessment and Plan: Secondary to indwelling Cavanaugh catheter. UCx growing 3+ organisms each >10K. BCx growing CNStaph (1of2 bottles). Currently on Vanco. He has completed 8 days of Cefepime. Blood cultures repeated. Continue to monitor. Stop vancomycin if repeat blood cultures remain negative. (5) Acute kidney injury: Code(s): N17.9 - Acute kidney failure, unspecified Status: Acute Assessment and Plan: Cr 7.4 on admission. Likely multifactorial in etiology. He appears quite dry on exam on admission and it sounds as though his Cavanaugh catheter was not draining well due to pus in the urine, and thus there may be a component of post-obstructive uropathy. Cavanauhg catheter was changed and IV fluids started. TCK as high as 1400 before normalizing. Renal ultrasound showing no obstruction. Creatinine dropped to 1.3. The day after the PEG placed, Cr doubled to 2.5. Cavanaugh was flushed and appears to be functioning well. No obvious events occurred in the GI suite but now discovered to abdominal hematoma. Cr better today at 1.6. Suspect ATN related to the severe anemia. Continue to monitor. (6) C. difficile diarrhea: Onset Date: ~03/2020 Code(s): A04.72 - Enterocolitis due to Clostridium difficile, not specified as recurrent Status: Acute Assessment and Plan: Having soft stools but not having aj diarrhea. Stool culture negative. Stool for cdiff by pcr was +. Sister relates he has had bad Cdiff in past with watery stool. May be chronic carrier? WBC 28K but has trended down to 10-11K. WBC jumped to 17K after EGD but slightly better at 15.9. Was on IV flagyl but changed to oral Vanco. (7) Acute respiratory failure with hypoxia: Code(s):
[2020-03-31 12:30] LABS: Glucose Point of Care 133 (65-105)
[2020-03-31] MEDS: METOCLOPRAMIDE HCL INJ 10 MG/2 ML VIAL 2.5 MG IV PUSH ×3 (13:21→23:16)
[2020-03-31] MEDS: MAGNESIUM SULF 2 GM/WATER 50ML 2 GM/50 ML BAG IVPB (13:22)
[2020-03-31 17:48] LABS: Glucose Point of Care 123 (65-105)
--- NOTE | 2020-03-31 20:34 | PM.PNGS ---
Progress Note: A&P Assessment and Plan (1) Abdominal hematoma: Onset Date: ~03/2020 Code(s): S30.1XXA - Contusion of abdominal wall, initial encounter Status: Acute Assessment and Plan: This was delineated on CT scan after his PEG tube placement H&Hs have been stable in the last 24 hours. Would continue to monitor same. Hopefully this will resolve and not become infected. Patient does have some tenderness either side of this PEG tube but there is no abdominal wall erythema or other changes. The patient is also tolerating his tube feedings which both well for his recovery. (2) Abdominal pain: Onset Date: Unknown Code(s): R10.9 - Unspecified abdominal pain Status: Acute Assessment and Plan: This is mild and is present either side of his PEG tube. There are no hernias along his laparotomy scar that I can detect. (3) Pneumonia: Onset Date: Unknown Qualifiers: Laterality: bilateral Lung location: unspecified part of lung Pneumonia type: due to unspecified organism Qualified Code(s): J18.9 - Pneumonia, unspecified organism Code(s): J18.9 - Pneumonia, unspecified organism Status: Acute (4) Essential hypertension: Code(s): I10 - Essential (primary) hypertension Status: Acute (5) C. difficile diarrhea: Onset Date: ~03/2020 Code(s): A04.72 - Enterocolitis due to Clostridium difficile, not specified as recurrent Status: Acute Assessment and Plan: Diarrhea parents slowing down. Patient on oral vancomycin. (6) Cholelithiases: Onset Date: Unknown Code(s): K80.20 - Calculus of gallbladder without cholecystitis without obstruction Status: Acute Assessment and Plan: Noted on recent CT scan. Apparently asymptomatic as far as we can tell. No signs of inflammation of the gallbladder on CT. Subjective Subjective Date/Time Seen: 03/31/20 20:34 Post Op day: 4 ( From PEG tube placement) Patient reports: no new complaints and still having pain ( says yes when asked if he has abdominal pain.) Interval history: 59yo male with HTN and aphasia from previous CVA sent to the hospital for evaluation fever. Patient found to have +CDiff and noted to have dysphagia. Patient had PEG tube placed 03/27/20. Hgb dropped to 5.4 on 03/[address] Abd showing large abd hematoma. When asked yes or no questions patient states yes when asked if evident has abdominal pain. When asked to point the patient points to area just to the medial side of the current PEG tube. When examined confirm some discomfort to palpation both medial and lateral to the area of the PEG tube. Lower abdomen is asymptomatic to history and exam. On 1 baby aspirin a day but no other blood thinners. Review of Systems Constitutional: Constitutional: Reports no additional constitutional complaints ENT: Reports other (Mucous Membranes moist.) Cardiovascular: Cardiovascular: Denies dyspnea Respiratory: Respiratory: Denies pain on inspiration and Denies dyspnea Musculoskeletal: Musculoskeletal: Reports other (No calf swelling or edema) Integumentary/Breasts: Skin/Breast: Reports system reviewed and no additional complaints, except as docu Exam Const: General: cooperative, no acute distress, alert and awake Orientation/consciousness: patient oriented x3 HENMT: Mouth: Yes moist mucous membranes Neck: Neck: normal visual inspection Chest: Chest palpation & inspection: normal inspection of the chest Resp: Effort & Inspection: normal respiratory effort Auscultation: clear to auscultation bilaterally Cardio: Jugular venous distension: no JVD Rate: regular rate Rhythm: regular rhythm GI: GI Palp: Yes Soft to palpation, Yes Tenderness to palpation present (GI) ( Left and right mid abdomen (either side of PEG tube).) and No Hernia present Auscultation: normal bowel sounds Rectal Exam: deferred Other: nurses report patient
[2020-03-31 23:31] LABS: Glucose Point of Care 139 (65-105)
[2020-03-31 23:33] LABS: Hematocrit 25.7 % (42.0-52.0); Hemoglobin 8.3 g/dL (14.0-18.0)
[2020-04-01] VITALS (13 sets, daily range): BP systolic 134–154; BP diastolic 80–88; PULSE 88–105; RESP 16–20; TEMP 36.6–37.2; O2SAT 90–100
[2020-04-01] MEDS: VANCOMYCIN ORAL 125 MG/2.5 ML SYRUP FEED TUBE ×4 (05:30→23:19)
[2020-04-01] MEDS: LANSOPRAZOLE ORAL SUSP 30 MG/10 ML ORAL.SUSP FEED TUBE (05:31)
[2020-04-01] MEDS: METOCLOPRAMIDE HCL INJ 10 MG/2 ML VIAL 2.5 MG IV PUSH ×4 (05:31→23:19)
[2020-04-01 06:02] LABS: Glucose Point of Care 119 (65-105)
[2020-04-01 06:07] LABS: Basophils Absolute Auto 0.1 K/mm3 (0.0-0.1); Basophils Percent Auto 0.4 % (0.2-1.2); Eosinophils Absolute Auto 0.2 K/mm3 (0-0.3); Eosinophils Percent Auto 1.5 % (0-4.4); Hematocrit 25.7 % (42.0-52.0); Hemoglobin 8.3 g/dL (14.0-18.0); Immature Granulocyte Absolute 0.09 K/mm3 (0.00-0.031); Immature Granulocyte Percent A 0.7 % (0-0.5); Lymphocytes Absolute Auto 0.93 K/mm3 (0.9-3.2); Lymphocytes Percent Auto 7.3 % (18.3-44.2); Mean Corpuscular HGB Conc 32.3 g/dl (32-36); Mean Corpuscular Volume 86.8 fl (80-100); Mean Platelet Volume 9.4 fl (7.4-10.4); Monocytes Absolute Auto 0.6 K/mm3 (0.1-0.6); Monocytes Percent Auto 4.6 % (2.6-8.5); Neutrophils Absolute Auto 10.9 K/mm3 (1.3-6.7); Neutrophils Percent Auto 85.5 % (45.5-73.1); Platelet Count Result 539 k/mm3 (150-375); Red Blood Count 2.96 M/mm3 (4.6-6.20); Red Cell Distribution Width 17.7 % (11.5-14.5); White Blood Count 12.8 K/mm3 (4.5-10.0)
[2020-04-01 06:28] LABS: Albumin Level 3.1 g/dL (3.5-5.1); Blood Urea Nitrogen 24 mg/dL (9-20); Calcium 8.5 mg/dL (8.4-10.2); Carbon Dioxide 26 mmol/L (22-30); Chloride 104 mmol/L (98-107); Estimated CRCL calculation 44 ml/min; Estimated Glomerular Filt Rate 57; Glucose 127 mg/dL (75-110); Magnesium 2.1 mg/dL (1.6-2.3); Phosphorus 4.1 mg/dL (2.5-4.5); Potassium 4.6 mmol/L (3.4-5.0); Sodium 137 mmol/L (137-145)
[2020-04-01] MEDS: IPRATROPIUM BR 0.02% INH SOLN 0.5 MG/2.5 ML VIAL INHALATION ×3 (08:52→19:49)
[2020-04-01] MEDS: ALBUTEROL SULFATE NEB 2.5 MG/0.5 ML INH 5 MG INHALATION ×3 (08:52→19:49)
[2020-04-01] MEDS: GABAPENTIN 400 MG CAPSULE PO ×3 (09:39→18:22)
[2020-04-01] MEDS: ASPIRIN 81 MG CHEWABLE TABLET FEED TUBE (09:39)
[2020-04-01] MEDS: ATORVASTATIN 40 MG TABLET FEED TUBE (09:39)
[2020-04-01] MEDS: METOPROLOL TARTRATE 25 MG TABLET FEED TUBE ×2 (09:39→20:26)
[2020-04-01] MEDS: levETIRAcetam ORAL SOL 500 MG/5 ML UDC FEED TUBE ×2 (09:40→20:26)
[2020-04-01 12:33] LABS: Glucose Point of Care 134 (65-105)
--- NOTE | 2020-04-01 16:21 | PM.PNGS ---
Progress Note: A&P Assessment and Plan (1) Abdominal hematoma: Onset Date: ~03/2020 Code(s): S30.1XXA - Contusion of abdominal wall, initial encounter Status: Acute Assessment and Plan: This was delineated on CT scan after his PEG tube placement H&Hs have been stable in the last 48 hours. Would continue to monitor same. Hopefully this will resolve and resorb and not become infected. Patient does have some tenderness either side of this PEG tube but there is no abdominal wall erythema or other changes. The patient is also tolerating his tube feedings which bodes well for his recovery. (2) Abdominal pain: Onset Date: Unknown Code(s): R10.9 - Unspecified abdominal pain Status: Acute Assessment and Plan: This is mild and is present either side of his PEG tube. There are no hernias along his laparotomy scar that I can detect. (3) Pneumonia: Onset Date: Unknown Qualifiers: Laterality: bilateral Lung location: unspecified part of lung Pneumonia type: due to unspecified organism Qualified Code(s): J18.9 - Pneumonia, unspecified organism Code(s): J18.9 - Pneumonia, unspecified organism Status: Acute (4) Essential hypertension: Code(s): I10 - Essential (primary) hypertension Status: Acute (5) C. difficile diarrhea: Onset Date: ~03/2020 Code(s): A04.72 - Enterocolitis due to Clostridium difficile, not specified as recurrent Status: Acute Assessment and Plan: Diarrhea parents slowing down. Patient on oral vancomycin. (6) Cholelithiases: Onset Date: Unknown Code(s): K80.20 - Calculus of gallbladder without cholecystitis without obstruction Status: Acute Assessment and Plan: Noted on recent CT scan. Apparently asymptomatic as far as we can tell. No signs of inflammation of the gallbladder on CT. Additional Plan Agree with serial daily CBC's. Transfuse to keep his hemoglobin above 7.0 Note patient has gallstones and so use of a more low-fat type tube feeding is appropriate. If operative intervention becomes necessary we may need to do an open operation in view of his previous surgical history because the patient apparently has had a large abdominal laparotomy and may have significant adhesions. Subjective Subjective Date/Time Seen: 04/01/20 16:21 patient lying in bed when I entered the room. States he is in some pain. Points to his lower abdomen for the site of the pain. Nurses report that he is tolerating his tube feedings at goal rate. Still having occasional loose stool. Review of Systems Constitutional: Constitutional: Reports no additional constitutional complaints ENT: Reports Normal hearing present and Reports other (Mucous Membranes moist.) Cardiovascular: Cardiovascular: Denies dyspnea Respiratory: Respiratory: Denies pain on inspiration and Denies dyspnea Gastrointestinal: Gastrointestinal: Reports abdominal pain ( Patient points to lower abdomen.) Musculoskeletal: Musculoskeletal: Reports other (No calf swelling or edema) Integumentary/Breasts: Skin/Breast: Reports system reviewed and no additional complaints, except as docu Neurologic: Reports Normal hearing present Psychiatric: Comments: Known previous stroke with aphasia. Exam Const: General: cooperative, no acute distress, alert and awake Nutritional Appearance: well nourished Orientation/consciousness: patient oriented x3 Limitations: no limitations HENMT: Head: normal to inspection, normocephalic and atraumatic Ears: hearing grossly normal bilaterally General nose exam: Normal external nose present Face and sinus: normal facial exam Mouth: Yes Normal oral and palatal mucosa present, Yes tongue normal and Yes moist mucous membranes Eyes: General: appearance normal, both eyes and all related structures Pupils: Equal, round and reactive pupils present EOM: EOMs intact bilaterally Neck:
--- NOTE | 2020-04-01 16:55 | WPDGIPROGNO ---
Progress Note: A&P Assessment and Plan (1) Abdominal hematoma: Onset Date: ~03/2020 Code(s): S30.1XXA - Contusion of abdominal wall, initial encounter Status: Acute Assessment and Plan: acute hematoma in abdominal wall just anterior to transverse colon after g-tube placement but no free air or perforation hemoglobin has been stable at 8 and no more requirement of blood transfusion no signs of abdominal infection continue with supportive care, avoid blood thinners and monitor h/h (2) Dysphagia: Onset Date: Unknown Code(s): R13.10 - Dysphagia, unspecified Status: Acute Assessment and Plan: g-tube is working ok, continue with tube feeding (3) Diabetes: Code(s): E11.9 - Type 2 diabetes mellitus without complications Status: Acute (4) Hypertension: Code(s): I10 - Essential (primary) hypertension Status: Acute (5) Acute blood loss anemia: Code(s): D62 - Acute posthemorrhagic anemia Status: Acute Assessment and Plan: required blood transfusion but hb stable more than 48 hours (6) Peptic ulcer disease: Onset Date: Unknown Code(s): K27.9 - Peptic ulcer, site unspecified, unspecified as acute or chronic, without hemorrhage or perforation Status: Acute Assessment and Plan: had non-bleeding ulcers, continue with ppi (7) Acute on chronic renal failure: Onset Date: Unknown Code(s): N17.9 - Acute kidney failure, unspecified; N18.9 - Chronic kidney disease, unspecified Status: Acute Assessment and Plan: renal function improving Subjective Date/time seen: 04/01/20 16:55 Interval history: tolerating TF at 70 ml/h, no new events. Still some discomfort in abdomen Review of Systems Review of Systems: All systems reviewed & are unremarkable except as noted in HPI and below Exam Const: Other: chronically ill appearing HENMT: General nose exam: Normal nares present Eyes: General: appearance normal, both eyes and all related structures Neck: Neck: no JVD Resp: Auscultation: diminished lung sounds Cardio: Rate: regular rate Rhythm: regular rhythm GI: Inspection: non-distended GI Palp: Yes Soft to palpation, Yes Tenderness to palpation present (GI) (minimally tender, no rebound or guarding- unchanged) and No Guarding due to palpation present (GI) Auscultation: normal bowel sounds Other: g-tube in position, 3 cm lul, clean and dry Skin: General skin exam: pallor Neuro: Cognition (Neuro): abnormal cognition Other: general weakness- h/o cva, unchanged Extrem: Other: right BKA Psych: Other: he is not talking much Objective Data Vital Signs Vital Signs: Vital Signs - 24 hr 03/31/20 19:43 03/31/20 19:54 03/31/20 20:52 Temperature Pulse Rate 93 91 102 H Respiratory Rate 18 18 Blood Pressure Pulse Oximetry 93 03/31/20 22:00 04/01/20 06:00 04/01/20 08:54 Temperature 98.3 F 97.9 F Pulse Rate 100 89 94 Respiratory Rate 18 18 18 Blood Pressure 140/85 134/80 Pulse Oximetry 95 95 04/01/20 09:01 04/01/20 14:00 04/01/20 14:20 Temperature 98.1 F Pulse Rate 91 92 88 Respiratory Rate 18 16 20 Blood Pressure 147/87 H Pulse Oximetry 98 100 04/01/20 14:27 Temperature Pulse Rate 88 Respiratory Rate 20 Blood Pressure Pulse Oximetry Intake/Output Intake/Output: Intake & Output 03/29/20 03/30/20 03/31/20 04/01/20 23:59 23:59 23:59 23:59 Intake Total 597.5 600 877 693 Output Total 750 1050 1250 Balance -152.5 -450 -373 693 Meds/Results Medications: Active Medications Generic Name Dose Route Start Last Admin Trade Name Freq PRN Reason Stop Dose Admin Acetaminophen 650 mg 03/29/20 16:00 Tylenol Elixir FEED TUBE Q6H PRN Mild Pain (1-3) or Fever Albuterol 5 mg 03/28/20 14:00 04/01/20 14:17 Albuterol Sulf Neb 2.5mg/0.5ml INHALATION 5 mg [id number] SHARRI Administration Aspirin 81 mg 03/30/20 08:00 07
--- NOTE | 2020-04-01 16:57 | PM.IMPN ---
Progress Note: A&P Assessment and Plan (1) Abdominal hematoma: Onset Date: ~03/2020 Code(s): S30.1XXA - Contusion of abdominal wall, initial encounter Status: Acute Assessment and Plan: Patient had GTube placed on 03/27/20. Hgb had been stable in the 7 range prior to procedure. No issues with the GTube placement. Hgb 5.4 on 03/28 and patient transfused 2U PRBC. Hgb climbed to 7 range and remained stable overnight and the next day (03/29). On 03/30 however, Hgb dropped again to 6.8 and transfusion on 1U PRBC ordered. CT scan obtained showing a large acute hematoma anterior to transverse colon. Discussed with Dr Ware. Continue to trend HH stable at 8.3 today. General surgery consulted but just monitoring for now. (2) Seizure: Code(s): R56.9 - Unspecified convulsions Status: Acute Assessment and Plan: New onset seizures noted overnight 03/25/20. CT brain showing old infarct but nothing acute. Possibly related to hx of CVA. Doubt [employer] infection. No evidence of recurrence. Neuro consult obtained and appreciate their input. Continue Keppra. (3) Severe sepsis: Code(s): A41.9 - Sepsis, unspecified organism; R65.20 - Severe sepsis without septic shock Status: Acute Assessment and Plan: Present on admission and supported by hypotension, fever, leukocytosis, elevated lactic acid, and acute kidney injury. Lactic acid level has normalized with IV fluid rehydration and blood pressures improved without pressors and continued hydration. Central line placed in the ED though he did not require vasopressors Sepsis presumably due to urinary tract infection and/or pancreatitis, or cdiff 1/2 BC+ for staph epi possibly contaminant; Day 14of Vanco. Blood cultures have been repeated and negative so DC IV vanc (4) Complicated urinary tract infection: Code(s): N39.0 - Urinary tract infection, site not specified Status: Acute Assessment and Plan: Secondary to indwelling Cavanaugh catheter. UCx growing 3+ organisms each >10K. BCx growing CNStaph (1of2 bottles). He has completed 8 days of Cefepime. Blood cultures repeated and negative Continue to monitor. Stop vancomycin with blood cultures remaining negative. (5) Acute kidney injury: Code(s): N17.9 - Acute kidney failure, unspecified Status: Acute Assessment and Plan: Cr 7.4 on admission. Likely multifactorial in etiology. He appears quite dry on exam on admission and it sounds as though his Cavanaugh catheter was not draining well due to pus in the urine, and thus there may be a component of post-obstructive uropathy. Cavanaugh catheter was changed and IV fluids started. TCK as high as 1400 before normalizing. Renal ultrasound showing no obstruction. Creatinine dropped to 1.3. The day after the PEG placed, Cr doubled to 2.5. Cavanaugh was flushed and appears to be functioning well. No obvious events occurred in the GI suite but now discovered to abdominal hematoma. Cr better today at 1.5. Suspect ATN related to the severe anemia. Continue to monitor. (6) C. difficile diarrhea: Onset Date: ~03/2020 Code(s): A04.72 - Enterocolitis due to Clostridium difficile, not specified as recurrent Status: Acute Assessment and Plan: Having soft stools but not having aj diarrhea. Stool culture negative. Stool for cdiff by pcr was +. Sister relates he has had bad Cdiff in past with watery stool. May be chronic carrier? WBC 28K but has trended down to 10-11K. WBC jumped to 17K after EGD but slightly better at 15.9. Was on IV flagyl but changed to oral Vanco. (7) Acute respiratory failu
--- NOTE | 2020-04-01 17:37 | PCDIET ---
Nutrition Follow-Up Complete: Swallowing Difficulties as related to Dysphagia as evidence by NPO/failed MBS. Meet estimated nutritional needs Goal: Goal met. Continue current goal. Pt current nutrition is Glucerna 1.2 at 70ml/hr. Nutrition recommendation: agree Last recorded weight is 67.3 kg (wt up from assessment wt of 62.1kg) Bowel Motility:Diarrhea (recommend S.Boulardi supplement and fiber flush) Labs Reviewed:GFR 57, Glucose 127, Cr 1.50, BUN 24, Albumin 3.1 Meds Noted:Reghalina, Iram, Yadira Additional Notes: Pt with increased wt and tolerating EN of Glucerna 1.2 at 70ml/hr providing 1848kcals, meeting 100% of needs. Pt with chronic cdiff and would benefit from s boulardi and fiber flush to hep bulk stool and protect microbiome. We will continue to monitor every t/f.
[2020-04-01 18:35] LABS: Glucose Point of Care 132 (65-105)
[2020-04-01 19:17] LABS: Alpha Fetoprotein Tumor Marker 1.5 ng/mL (<6.1)
[2020-04-01 23:56] LABS: Glucose Point of Care 116 (65-105)
[2020-04-02] VITALS (12 sets, daily range): BP systolic 134–157; BP diastolic 78–86; PULSE 75–104; RESP 16–20; TEMP 36.8–37.3; O2SAT 90–97
[2020-04-02] MEDS: METOCLOPRAMIDE HCL INJ 10 MG/2 ML VIAL 2.5 MG IV PUSH ×3 (05:14→18:01)
[2020-04-02] MEDS: VANCOMYCIN ORAL 125 MG/2.5 ML SYRUP FEED TUBE ×3 (05:14→18:02)
[2020-04-02] MEDS: LANSOPRAZOLE ORAL SUSP 30 MG/10 ML ORAL.SUSP FEED TUBE (05:43)
[2020-04-02 05:47] LABS: Glucose Point of Care 118 (65-105)
[2020-04-02 07:54] LABS: Basophils Absolute Auto 0.1 K/mm3 (0.0-0.1); Basophils Percent Auto 0.8 % (0.2-1.2); Eosinophils Absolute Auto 0.2 K/mm3 (0-0.3); Eosinophils Percent Auto 1.9 % (0-4.4); Hematocrit 26.2 % (42.0-52.0); Hemoglobin 8.3 g/dL (14.0-18.0); Immature Granulocyte Absolute 0.06 K/mm3 (0.00-0.031); Immature Granulocyte Percent A 0.5 % (0-0.5); Lymphocytes Percent Auto 9.3 % (18.3-44.2); Mean Corpuscular HGB Conc 31.7 g/dl (32-36); Mean Corpuscular Hemoglobin 27.6 pg (26-34); Mean Platelet Volume 9.5 fl (7.4-10.4); Monocytes Absolute Auto 0.6 K/mm3 (0.1-0.6); Monocytes Percent Auto 5.3 % (2.6-8.5); Neutrophils Absolute Auto 9.7 K/mm3 (1.3-6.7); Neutrophils Percent Auto 82.2 % (45.5-73.1); Platelet Count Result 573 k/mm3 (150-375); Red Blood Count 3.01 M/mm3 (4.6-6.20); Red Cell Distribution Width 17.8 % (11.5-14.5); White Blood Count 11.8 K/mm3 (4.5-10.0)
[2020-04-02 08:12] LABS: Albumin Level 3.1 g/dL (3.5-5.1); Blood Urea Nitrogen 26 mg/dL (9-20); Calcium 8.5 mg/dL (8.4-10.2); Carbon Dioxide 29 mmol/L (22-30); Chloride 104 mmol/L (98-107); Estimated CRCL calculation 40 ml/min; Estimated Glomerular Filt Rate 53; Glucose 125 mg/dL (75-110); Phosphorus 3.8 mg/dL (2.5-4.5); Sodium 138 mmol/L (137-145)
[2020-04-02] MEDS: IPRATROPIUM BR 0.02% INH SOLN 0.5 MG/2.5 ML VIAL INHALATION ×3 (09:14→20:10)
[2020-04-02] MEDS: ALBUTEROL SULFATE NEB 2.5 MG/0.5 ML INH 5 MG INHALATION ×3 (09:14→20:09)
[2020-04-02] MEDS: GABAPENTIN 400 MG CAPSULE PO ×3 (09:57→18:02)
[2020-04-02] MEDS: levETIRAcetam ORAL SOL 500 MG/5 ML UDC FEED TUBE ×2 (09:57→21:08)
[2020-04-02] MEDS: ASPIRIN 81 MG CHEWABLE TABLET FEED TUBE (09:58)
[2020-04-02] MEDS: ATORVASTATIN 40 MG TABLET FEED TUBE (09:58)
[2020-04-02] MEDS: amLODIPine BESYLATE 5 MG TABLET FEED TUBE (09:58)
[2020-04-02] MEDS: METOPROLOL TARTRATE 50 MG TAB FEED TUBE ×2 (09:58→21:07)
--- NOTE | 2020-04-02 12:04 | PC.NURSE ---
Checked peg tube placement with auscultation.20ml was residual volume of tube feeding. Patient tolerated well.
[2020-04-02 12:24] LABS: Glucose Point of Care 121 (65-105)
--- NOTE | 2020-04-02 12:34 | PM.PNGS ---
Progress Note: A&P Assessment and Plan (1) Abdominal hematoma: Onset Date: ~03/2020 Code(s): S30.1XXA - Contusion of abdominal wall, initial encounter Status: Acute Assessment and Plan: This was delineated on CT scan after his PEG tube placement. H&Hs have been stable in the last 72 hours. Would continue to monitor same. Hopefully this will resolve and resorb and not become infected. Patient does have some tenderness either side of this PEG tube but there is no abdominal wall erythema or other changes. The patient is also tolerating his tube feedings along with BM's which bodes well for his recovery. (2) Abdominal pain: Onset Date: Unknown Code(s): R10.9 - Unspecified abdominal pain Status: Acute Assessment and Plan: This is mild and is present either side of his PEG tube. There are no hernias along his laparotomy scar that I can detect. (3) Pneumonia: Onset Date: Unknown Qualifiers: Laterality: bilateral Lung location: unspecified part of lung Pneumonia type: due to unspecified organism Qualified Code(s): J18.9 - Pneumonia, unspecified organism Code(s): J18.9 - Pneumonia, unspecified organism Status: Acute (4) Essential hypertension: Code(s): I10 - Essential (primary) hypertension Status: Acute (5) C. difficile diarrhea: Onset Date: ~03/2020 Code(s): A04.72 - Enterocolitis due to Clostridium difficile, not specified as recurrent Status: Acute Assessment and Plan: Diarrhea apparently slowing down. Patient on oral vancomycin. (6) Cholelithiases: Onset Date: Unknown Code(s): K80.20 - Calculus of gallbladder without cholecystitis without obstruction Status: Acute Assessment and Plan: Noted on recent CT scan. Apparently asymptomatic as far as we can tell. No signs of inflammation of the gallbladder on CT. Additional Plan Agree with serial daily CBC's. Transfuse to keep his hemoglobin above 7.0 Note patient has gallstones and so use of a more low-fat type tube feeding is appropriate. If operative intervention becomes necessary we may need to do an open operation in view of his previous surgical history because the patient apparently has had a large abdominal laparotomy and may have significant adhesions. Since his hematoma and his H&H has been stable for the last 3 days I have discussed the situation with Dr. Murphy and I will sign off the case at this point. Please call us back for general surgery consultation if problems recur and we are needed. Subjective Subjective Date/Time Seen: 04/02/20 12:34 Patient seen in his room. He was lying in bed. His nurse's aide had just clean him up from a bowel movement. He apparently is incontinent. Whenever I have come in the room the patient has been laying on his back. This probably ruelas to have him rotated onto his sides at times. Patient denies any serious problems. He does complain of some abdominal pain lower abdomen. He otherwise looks comfortable. Review of Systems Constitutional: Constitutional: Reports no additional constitutional complaints ENT: Reports Normal hearing present and Reports other (Mucous Membranes moist.) Cardiovascular: Cardiovascular: Denies dyspnea Respiratory: Respiratory: Denies pain on inspiration and Denies dyspnea Gastrointestinal: Gastrointestinal: Reports abdominal pain ( Patient points to lower abdomen.) Musculoskeletal: Musculoskeletal: Reports other (No calf swelling or edema) Integumentary/Breasts: Skin/Breast: Reports system reviewed and no additional complaints, except as docu Neurologic: Reports Normal hearing present Exam Const: General: cooperative, no acute distress, alert and awake Nutritional Appearance: well nourished Orientation/consciousness: patient oriented x3 Limitations: no limitations HENMT: Head: normal to inspection, normocephalic and atraumatic E
--- NOTE | 2020-04-02 15:56 | WPDGIPROGNO ---
Progress Note: A&P Assessment and Plan (1) Abdominal hematoma: Onset Date: ~03/2020 Code(s): S30.1XXA - Contusion of abdominal wall, initial encounter Status: Acute Assessment and Plan: acute hematoma in abdominal wall just anterior to transverse colon after g-tube placement but no free air or perforation hemoglobin has been stable at 8 and no more requirement of blood transfusion for more than 3 days, no signs of abdominal wall infection continue with supportive care, avoid blood thinners and monitor h/h (2) Dysphagia: Onset Date: Unknown Code(s): R13.10 - Dysphagia, unspecified Status: Acute Assessment and Plan: g-tube is working ok, continue with tube feeding (3) Diabetes: Code(s): E11.9 - Type 2 diabetes mellitus without complications Status: Acute (4) Hypertension: Code(s): I10 - Essential (primary) hypertension Status: Acute (5) Acute blood loss anemia: Code(s): D62 - Acute posthemorrhagic anemia Status: Acute Assessment and Plan: required blood transfusion but hb stable at 8 range (6) Peptic ulcer disease: Onset Date: Unknown Code(s): K27.9 - Peptic ulcer, site unspecified, unspecified as acute or chronic, without hemorrhage or perforation Status: Acute Assessment and Plan: had non-bleeding ulcers, continue with ppi (7) Acute on chronic renal failure: Onset Date: Unknown Code(s): N17.9 - Acute kidney failure, unspecified; N18.9 - Chronic kidney disease, unspecified Status: Acute Subjective Date/time seen: 04/02/20 15:56 Interval history: no new events, tolerating TF at 70 ml/h Review of Systems Review of Systems: All systems reviewed & are unremarkable except as noted in HPI and below Exam Const: Other: chronically ill appearing HENMT: General nose exam: Normal nares present Eyes: General: appearance normal, both eyes and all related structures Neck: Neck: no JVD Resp: Auscultation: diminished lung sounds Cardio: Rate: regular rate Rhythm: regular rhythm GI: Inspection: non-distended GI Palp: Yes Soft to palpation, Yes Tenderness to palpation present (GI) (minimally tender, no rebound or guarding- unchanged) and No Guarding due to palpation present (GI) Auscultation: normal bowel sounds Other: g-tube in position, 3 cm lul, clean and dry Skin: General skin exam: pallor Neuro: Cognition (Neuro): abnormal cognition Other: general weakness- h/o cva, unchanged Extrem: Other: right BKA Psych: Other: he is not talking much Objective Data Vital Signs Vital Signs: Vital Signs - 24 hr 04/01/20 19:49 04/01/20 20:00 04/01/20 20:23 Temperature Pulse Rate 96 94 105 H Respiratory Rate 16 16 Blood Pressure 153/86 H Pulse Oximetry 100 04/01/20 20:25 04/01/20 20:26 04/01/20 22:00 Temperature 98.9 F Pulse Rate 105 H 100 Respiratory Rate 18 Blood Pressure 154/88 H Pulse Oximetry 92 90 04/01/20 23:34 04/02/20 06:50 04/02/20 09:15 Temperature 99.2 F Pulse Rate 104 H Respiratory Rate 20 Blood Pressure 157/86 H Pulse Oximetry 92 92 94 04/02/20 09:17 04/02/20 09:27 04/02/20 09:58 Temperature Pulse Rate 98 96 80 Respiratory Rate 18 18 Blood Pressure Pulse Oximetry 04/02/20 14:56 04/02/20 15:03 Temperature Pulse Rate 96 96 Respiratory Rate 20 20 Blood Pressure Pulse Oximetry Intake/Output Intake/Output: Intake & Output 03/30/20 03/31/20 04/01/20 04/02/20 23:59 23:59 23:59 23:59 Intake Total 331 779 9994 683 Output Total 1050 1250 800 Balance -786 -464 1616 -117 Meds/Results Medications: Active Medications Generic Name Dose Route Start Last Admin Trade Name Freq PRN Reason Stop Dose Admin Acetaminophen 650 mg 03/29/20 16:00 Tylenol Elixir FEED TUBE Q6H PRN Mild Pain (1-3) or Fever Albuterol 5 mg 03/28/20 14:00 04/02/20 14:56 Albuterol Sulf Neb 2.
--- NOTE | 2020-04-02 17:01 | PM.IMPN ---
Progress Note: A&P Assessment and Plan (1) Abdominal hematoma: Onset Date: ~03/2020 Code(s): S30.1XXA - Contusion of abdominal wall, initial encounter Status: Acute Assessment and Plan: Patient had GTube placed on 03/27/20. Hgb had been stable in the 7 range prior to procedure. No issues with the GTube placement. Hgb 5.4 on 03/28 and patient transfused 2U PRBC. Hgb climbed to 7 range and remained stable overnight and the next day (03/29). On 03/30 however, Hgb dropped again to 6.8 and transfusion on 1U PRBC ordered. CT scan obtained showing a large acute hematoma anterior to transverse colon. Discussed with Dr Ware. Continue to trend HH stable at 8.3 today again. General surgery consulted but just monitoring for now. (2) Seizure: Code(s): R56.9 - Unspecified convulsions Status: Acute Assessment and Plan: New onset seizures noted overnight 03/25/20. CT brain showing old infarct but nothing acute. Possibly related to hx of CVA. 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 No evidence of recurrence. . Continue Keppra. (3) Severe sepsis: Code(s): A41.9 - Sepsis, unspecified organism; R65.20 - Severe sepsis without septic shock Status: Acute Assessment and Plan: Present on admission and supported by hypotension, fever, leukocytosis, elevated lactic acid, and acute kidney injury. Lactic acid level has normalized with IV fluid rehydration and blood pressures improved without pressors and continued hydration. Central line placed in the ED though he did not require vasopressors Sepsis presumably due to urinary tract infection and/or pancreatitis, or cdiff 1/2 BC+ for staph epi possibly contaminant; Day 14 of Vanco. Blood cultures have been repeated and negative so DC IV vanc (4) Complicated urinary tract infection: Code(s): N39.0 - Urinary tract infection, site not specified Status: Acute Assessment and Plan: Secondary to indwelling Cavanaugh catheter. UCx growing 3+ organisms each >10K. BCx growing CNStaph (1of2 bottles). He has completed 9 days of Cefepime. Blood cultures repeated and negative Continue to monitor. Stop vancomycin with blood cultures remaining negative. (5) Acute kidney injury: Code(s): N17.9 - Acute kidney failure, unspecified Status: Acute Assessment and Plan: Cr 7.4 on admission. Likely multifactorial in etiology. He appears quite dry on exam on admission and it sounds as though his Cavanaugh catheter was not draining well due to pus in the urine, and thus there may be a component of post-obstructive uropathy. Cavanaugh catheter was changed and IV fluids started. TCK as high as 1400 before normalizing. Renal ultrasound showing no obstruction. Creatinine dropped to 1.3. The day after the PEG placed, Cr doubled to 2.5. Cavanaugh was flushed and appears to be functioning well. No obvious events occurred in the GI suite but now discovered to abdominal hematoma. Cr better today at 1.6. Suspect ATN related to the severe anemia. Continue to monitor. (6) C. difficile diarrhea: Onset Date: ~03/2020 Code(s): A04.72 - Enterocolitis due to Clostridium difficile, not specified as recurrent Status: Acute Assessment and Plan: Having soft stools but not having aj diarrhea. Stool culture negative. Stool for cdiff by pcr was +. Sister relates he has had bad Cdiff in past with watery stool. May be chronic carrier? WBC 28K but has trended down to 10-11K. WBC jumped to 17K after EGD but slightly better at 15.9. Was on IV flagyl but changed to oral Vanco. D#5 (7) Acute respiratory failure with hypoxia: Code(s): J96.0
[2020-04-02 18:15] LABS: Glucose Point of Care 127 (65-105)
[2020-04-03] VITALS (8 sets, daily range): BP systolic 137–155; BP diastolic 84–96; PULSE 65–94; RESP 18; TEMP 36.8; O2SAT 90–95
[2020-04-03] MEDS: METOCLOPRAMIDE HCL INJ 10 MG/2 ML VIAL 2.5 MG IV PUSH ×3 (00:09→14:02)
[2020-04-03] MEDS: VANCOMYCIN ORAL 125 MG/2.5 ML SYRUP FEED TUBE ×3 (00:09→14:02)
[2020-04-03 00:14] LABS: Glucose Point of Care 93 (65-105)
[2020-04-03] MEDS: LANSOPRAZOLE ORAL SUSP 30 MG/10 ML ORAL.SUSP FEED TUBE (05:54)
[2020-04-03 06:01] LABS: Glucose Point of Care 130 (65-105)
[2020-04-03 06:49] LABS: Basophils Absolute Auto 0.1 K/mm3 (0.0-0.1); Basophils Percent Auto 0.8 % (0.2-1.2); Eosinophils Absolute Auto 0.2 K/mm3 (0-0.3); Eosinophils Percent Auto 1.9 % (0-4.4); Hematocrit 27.3 % (42.0-52.0); Hemoglobin 8.5 g/dL (14.0-18.0); Immature Granulocyte Absolute 0.06 K/mm3 (0.00-0.031); Immature Granulocyte Percent A 0.5 % (0-0.5); Lymphocytes Absolute Auto 0.98 K/mm3 (0.9-3.2); Lymphocytes Percent Auto 8.2 % (18.3-44.2); Mean Corpuscular HGB Conc 31.1 g/dl (32-36); Mean Corpuscular Hemoglobin 27.4 pg (26-34); Mean Corpuscular Volume 88.1 fl (80-100); Mean Platelet Volume 10.6 fl (7.4-10.4); Monocytes Absolute Auto 0.6 K/mm3 (0.1-0.6); Monocytes Percent Auto 5.4 % (2.6-8.5); Neutrophils Absolute Auto 9.9 K/mm3 (1.3-6.7); Neutrophils Percent Auto 83.2 % (45.5-73.1); Platelet Count Result 628 k/mm3 (150-375); Red Cell Distribution Width 17.7 % (11.5-14.5); White Blood Count 11.9 K/mm3 (4.5-10.0)
[2020-04-03 07:06] LABS: Alanine Aminotransferase 10 U/L (4-50); Albumin Level 3.2 g/dL (3.5-5.1); Alkaline Phosphatase 117 U/L (38-126); Aspartate Amino Transferase 23 U/L (17-59); Bilirubin,Total 0.2 mg/dL (0.2-1.3); Blood Urea Nitrogen 30 mg/dL (9-20); Calcium 8.8 mg/dL (8.4-10.2); Carbon Dioxide 31 mmol/L (22-30); Chloride 101 mmol/L (98-107); Estimated CRCL calculation 35 ml/min; Estimated Glomerular Filt Rate 50; Glucose 139 mg/dL (75-110); Potassium 5.2 mmol/L (3.4-5.0); Sodium 139 mmol/L (137-145)
[2020-04-03] MEDS: ALBUTEROL SULFATE NEB 2.5 MG/0.5 ML INH 5 MG INHALATION ×2 (08:47→14:42)
[2020-04-03] MEDS: IPRATROPIUM BR 0.02% INH SOLN 0.5 MG/2.5 ML VIAL INHALATION ×2 (08:48→14:42)
[2020-04-03] MEDS: METOPROLOL TARTRATE 50 MG TAB FEED TUBE (11:06)
[2020-04-03] MEDS: GABAPENTIN 400 MG CAPSULE PO ×2 (11:07→14:02)
[2020-04-03] MEDS: levETIRAcetam ORAL SOL 500 MG/5 ML UDC FEED TUBE (11:08)
[2020-04-03] MEDS: ATORVASTATIN 40 MG TABLET FEED TUBE (11:08)
[2020-04-03] MEDS: ASPIRIN 81 MG CHEWABLE TABLET FEED TUBE (11:08)
[2020-04-03] MEDS: amLODIPine BESYLATE 5 MG TABLET 10 MG FEED TUBE (11:08)
--- NOTE | 2020-04-03 11:48 | WPDGIPROGNO ---
Progress Note: A&P Assessment and Plan (1) Abdominal hematoma: Onset Date: ~03/2020 Code(s): S30.1XXA - Contusion of abdominal wall, initial encounter Status: Acute Assessment and Plan: hematoma in abdominal wall just anterior to transverse colon after g-tube placement but no free air or perforation, it has been almost a week now and hemoglobin stable at 8 for several days, no signs of infection. continue with supportive care, avoid blood thinners and monitor h/h will follow from afar (2) Dysphagia: Onset Date: Unknown Code(s): R13.10 - Dysphagia, unspecified Status: Acute Assessment and Plan: g-tube is working ok, continue with tube feeding (3) Diabetes: Code(s): E11.9 - Type 2 diabetes mellitus without complications Status: Acute (4) Hypertension: Code(s): I10 - Essential (primary) hypertension Status: Acute (5) Acute blood loss anemia: Code(s): D62 - Acute posthemorrhagic anemia Status: Acute Assessment and Plan: required blood transfusion several days ago, now hb stable at 8 range (6) Peptic ulcer disease: Onset Date: Unknown Code(s): K27.9 - Peptic ulcer, site unspecified, unspecified as acute or chronic, without hemorrhage or perforation Status: Acute Assessment and Plan: had non-bleeding ulcers, continue with ppi (7) Acute on chronic renal failure: Onset Date: Unknown Code(s): N17.9 - Acute kidney failure, unspecified; N18.9 - Chronic kidney disease, unspecified Status: Acute Subjective Date/time seen: 04/03/20 11:48 Interval history: no new issues and tolerating tube feeding, hb has been stable now for several days Review of Systems Review of Systems: ROS unobtainable: Yes unobtainable due to mental status Exam Const: Other: chronically ill appearing HENMT: General nose exam: Normal nares present Eyes: General: appearance normal, both eyes and all related structures Neck: Neck: no JVD Resp: Auscultation: diminished lung sounds Cardio: Rate: regular rate Rhythm: regular rhythm GI: Inspection: non-distended GI Palp: Yes Soft to palpation, Yes Tenderness to palpation present (GI) (minimally tender, no rebound or guarding- unchanged) and No Guarding due to palpation present (GI) Auscultation: normal bowel sounds Other: g-tube in position, 3 cm lul, clean and dry Skin: General skin exam: pallor Neuro: Cognition (Neuro): abnormal cognition (awake and alert but slow to respond) Other: general weakness- h/o cva, unchanged Extrem: Other: right BKA Psych: Other: he is not talking much Objective Data Vital Signs Vital Signs: Vital Signs - 24 hr 04/02/20 14:00 04/02/20 14:56 04/02/20 15:03 Temperature 98.9 F Pulse Rate 80 96 96 Respiratory Rate 16 20 20 Blood Pressure 145/80 H Pulse Oximetry 97 04/02/20 20:10 04/02/20 20:22 04/02/20 21:07 Temperature Pulse Rate 95 91 88 Respiratory Rate 18 18 Blood Pressure Pulse Oximetry 93 04/02/20 22:00 04/03/20 06:00 04/03/20 08:48 Temperature 98.2 F 98.2 F Pulse Rate 75 74 94 Respiratory Rate 18 18 18 Blood Pressure 134/78 155/96 H Pulse Oximetry 90 90 95 04/03/20 08:59 04/03/20 11:06 Temperature Pulse Rate 88 65 Respiratory Rate 18 Blood Pressure Pulse Oximetry Intake/Output Intake/Output: Intake & Output 03/31/20 04/01/20 04/02/20 04/03/20 23:59 23:59 23:59 23:59 Intake Total 877 1616 1163 0 Output Total 1250 1400 1000 Balance -373 1616 -237 -1000 Meds/Results Medications: Active Medications Generic Name Dose Route Start Last Admin Trade Name Freq PRN Reason Stop Dose Admin Acetaminophen 650 mg 03/29/20 16:00 Tylenol Elixir FEED TUBE Q6H PRN Mild Pain (1-3) or Fever Albuterol 5 mg 03/28/20 14:00 04/03/20 08:47 Albuterol Sulf Neb 2.5mg/0.5ml INHALATION 5 mg [id number] SHARRI Administration Amlodipine Besylate 10 m
[2020-04-03 12:06] LABS: Glucose Point of Care 113 (65-105)
[2020-04-04 00:01] LABS: SARS-CoV-2 RNA PCR Negative
--- NOTE | 2020-04-10 14:15 | PM.DS ---
DS: Admitting Diagnosis Admitting Diagnosis Admitting Diagnosis: Sepsis, unspecified organism DS: Discharge Diagnosis Discharge Diagnosis (1) Abdominal hematoma: Onset Date: ~03/2020 Code(s): S30.1XXA - Contusion of abdominal wall, initial encounter Status: Acute Assessment and Plan: Patient had GTube placed on 03/27/20. Hgb had been stable in the 7 range prior to procedure. No issues with the GTube placement. Hgb 5.4 on 03/28 and patient transfused 2U PRBC. Hgb climbed to 7 range and remained stable overnight and the next day (03/29). On 03/30 however, Hgb dropped again to 6.8 and transfusion on 1U PRBC ordered. CT scan obtained showing a large acute hematoma anterior to transverse colon. Discussed with Dr Ware. Continue to trend HH stable at 8.5 at d/c. General surgery consulted but just monitored with no intervention cbc1 week post d/c (2) Seizure: Code(s): R56.9 - Unspecified convulsions Status: Acute Assessment and Plan: New onset seizures noted overnight 03/25/20. CT brain showing old infarct but nothing acute. Possibly related to hx of CVA. 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 No evidence of recurrence. . Continue Keppra. (3) Severe sepsis: Code(s): A41.9 - Sepsis, unspecified organism; R65.20 - Severe sepsis without septic shock Status: Acute Assessment and Plan: Present on admission and supported by hypotension, fever, leukocytosis, elevated lactic acid, and acute kidney injury. Lactic acid level normalized with IV fluid rehydration and blood pressures improved without pressors and continued hydration. Central line placed in the ED though he did not require vasopressors Sepsis presumably due to urinary tract infection and/or pancreatitis, or cdiff 1/2 BC+ for staph epi possibly contaminant; Day 14 of Vanco. Blood cultures were repeated and negative so DC IV vanc (4) Complicated urinary tract infection: Code(s): N39.0 - Urinary tract infection, site not specified Status: Acute Assessment and Plan: Secondary to indwelling Cavanaugh catheter. UCx growing 3+ organisms each >10K. BCx growing CNStaph (1of2 bottles). He has completed 9 days of Cefepime. Blood cultures repeated and negative Continue to monitor. Stop vancomycin with blood cultures remaining negative. (5) Acute kidney injury: Code(s): N17.9 - Acute kidney failure, unspecified Status: Acute Assessment and Plan: Cr 7.4 on admission. Likely multifactorial in etiology. He appears quite dry on exam on admission and it sounds as though his Cavanaugh catheter was not draining well due to pus in the urine, and thus there may be a component of post-obstructive uropathy. Cavanaugh catheter was changed and IV fluids started. TCK as high as 1400 before normalizing. Renal ultrasound showing no obstruction. Creatinine dropped to 1.3. The day after the PEG placed, Cr doubled to 2.5. Cavanaugh was flushed and appears to be functioning well. No obvious events occurred in the GI suite but now discovered to abdominal hematoma. Cr better today at 1.7 at d/c. Suspect ATN related to the severe anemia. BMP 1 week post d/c (6) C. difficile diarrhea: Onset Date: ~03/2020 Code(s): A04.72 - Enterocolitis due to Clostridium difficile, not specified as recurrent Status: Acute Assessment and Plan: Having soft stools but not having aj diarrhea. Stool culture negative. Stool for cdiff by pcr was +. Sister relates he has had bad Cdiff in past with watery stool. May be chronic carrier? WBC 28K but has trended down to 10-11K. WBC jumped to 17K after EGD but slightly better at 15.9. Was on IV flagyl but changed to oral Va
== END 2020-04-03 15:50 | DRG 466 ==
LOC: ANHED 07:38 → ANHICU 20:26 → ANH3MEDSUR 03-21 12:50 → ANHICU 04-04 09:05
PROVIDERS: Emergency Medicine; Family Medicine; Internal Medicine; Internal Medicine Gastroenterology; Nurse Practitioner; Physician Assistant; Admitting Provider Family Medicine; Emergency Provider Emergency Medicine; Visit Provider Internal Medicine
PROC: 0DJ08ZZ Inspection of Upper Intestinal Tract, Via Natural or Artificial Opening Endoscopic (ICD-10-PCS; CPT 43235; principal; 2020-03-23 17:20)
PROC: 0DH63UZ Insertion of Feeding Device into Stomach, Percutaneous Approach (ICD-10-PCS; CPT 43246; 2020-03-27 12:00)
DX: T83.511A Infection and inflammatory reaction due to indwelling urethral catheter, initial encounter (principal); A41.9 Sepsis, unspecified organism; N39.0 Urinary tract infection, site not specified; R65.20 Severe sepsis without septic shock; K26.3 Acute duodenal ulcer without hemorrhage or perforation; K25.3 Acute gastric ulcer without hemorrhage or perforation; Z11.59 Encounter for screening for other viral diseases; D62 Acute posthemorrhagic anemia; N13.8 Other obstructive and reflux uropathy; I69.351 Hemiplegia and hemiparesis following cerebral infarction affecting right dominant side; A04.72 Enterocolitis due to Clostridium difficile, not specified as recurrent; I69.320 Aphasia following cerebral infarction; K85.90 Acute pancreatitis without necrosis or infection, unspecified; E11.51 Type 2 diabetes mellitus with diabetic peripheral angiopathy without gangrene; N17.0 Acute kidney failure with tubular necrosis; R16.0 Hepatomegaly, not elsewhere classified; J96.01 Acute respiratory failure with hypoxia; K80.20 Calculus of gallbladder without cholecystitis without obstruction; E87.5 Hyperkalemia; N40.0 Benign prostatic hyperplasia without lower urinary tract symptoms; D50.9 Iron deficiency anemia, unspecified; I10 Essential (primary) hypertension; R13.10 Dysphagia, unspecified; Z89.611 Acquired absence of right leg above knee; K29.70 Gastritis, unspecified, without bleeding; K29.80 Duodenitis without bleeding; K91.870 Postprocedural hematoma of a digestive system organ or structure following a digestive system procedure; K94.29 Other complications of gastrostomy
CPT/HCPCS: 36415; 36430; 36556; 36600; 43246; 70450; 71045; 74176; 76700; 76775; 78580; 80048; 80053; 80061; 80069; 80076; 80202; 81001; 82105; 82274; 82375; 82550; 82728; 82805; 83036; 83050; 83540; 83550; 83605; 83615; 83690; 83735; 84100; 84443; 84466; 84478; 85014; 85018; 85025; 85027; 85046; 85055; 85380; 85610; 85730; 85999; 86140; 86850; 86900; 86901; 86923; 87015; 87040; 87045; 87046; 87077; 87081; 87086; 87088; 87186; 87269; 87272; 87324; 87427; 87493; 87635; 92526; 92610; 92611; 93005; 93971; 94640; 96361; 96365; 97161; 97165; 99291; A9270; A9540; C1751; C9113; C9803; J0131; J0456; J0692; J0696; J1170; J1644; J1815; J1953; J1956; J2704; J2765; J3370; J3475; J3480; J7030; J7050; J7120; P9016; U0003

== ENCOUNTER 2020-04-13 15:50 | Inpatient (IN) | payer BC, SELFPAY ==
[2020-04-13] VITALS (15 sets, daily range): BP systolic 64–109; BP diastolic 49–74; PULSE 92–147; RESP 23–44; TEMP 36.6–39.4; O2SAT 79–100; BMI 25.1
--- NOTE | ~2020-04-13 | CT_ITS ---
EXAMINATION: CT chest w con DATE: 04/24/2020 11:54 INDICATION: Bibasilar infiltrates, possible mediastinal lymphadenopathy TECHNIQUE: Transaxial computed tomographic images of the chest were obtained after the administration of 75 cc of Omnipaque 350 intravenous contrast. The dose-length product (DLP) was 202.11 mGy-cm. Ite rative reconstruction was used. COMPARISON: 04/13/2020 FINDINGS: There is moderate emphysema. Airspace opacities in the upper lung zones persist but have im proved. There is improvement in airspace opacities of the lower lobes as well but interval developmen t of moderate atelectasis. Small pleural effusions are present. There is no pneumothorax. An approxim ately 3.3 x 2.9 cm mass of the right upper mediastinum is unchanged from the recent comparison. A rig ht upper paratracheal lymph node measures 12 mm in short axis (image 21). No persistent left axillary lymphadenopathy is identified. The heart size is normal. There is moderate bilateral gynecomastia. T here is mild thoracic spondylosis. Hyperdense material in the stomach may be due to modified esophagr am. However, this was performed greater than one week ago and hypertension of contrast material could reflect gastric immotility. IMPRESSION: 1. Unchanged right paratracheal mass consistent with lymphadenopathy, metastatic disease, or primary malignancy. 2. Interval improvement in diffuse airspace opacities, likely resolving pneumonia. 3. Development of moderate atelectasis in the lower lobes. 4. Resolved flex axillary lymphadenopathy. 5. Mediastinal lymphadenopathy, reactive versus metastatic. Reviewed, dictated and finalized at location A. IMPRESSION: 1. Unchanged right paratracheal mass consistent with lymphadenopathy, metastati c disease, or primary malignancy. 2. Interval improvement in diffuse airspace opacities, likely resolving pneumon ia. 3. Development of moderate atelectasis in the lower lobes. 4. Resolved flex axillary lymphadenopathy. 5. Mediastinal lymphadenopathy, reactive versus metastatic.
--- NOTE | ~2020-04-13 | XR_ITS ---
EXAMINATION: XR abdomen obstructive series EXAM DATE: 04/15/2020 09:38 INDICATION: Small bowel obstruction, ileus. TECHNIQUE: Frontal upright projection of the upper abdomen, frontal projection of the lower abdomen f or interpretation. Comparison is made to prior examination from 04/13/2020. FINDINGS: Feeding tube tip and side-port project over gastric bubble. There is gastrostomy. Aortoili ac endograft. There is dense left lower lobe posterior segmental consolidation. Nonobstructive bowel gas pattern, with only small amount of bowel gas present. No free intraperitoneal gas. There is no or ganomegaly. IMPRESSION: 1. Evidence of dense posterior segmental left lower lobe consolidation, could be atelectasis, pneumo graciela, aspiration. 2. Nonobstructive bowel gas pattern. Reviewed, dictated and finalized at location A. IMPRESSION: 1. Evidence of dense posterior segmental left lower lobe consolidation, could be atelectasis, pneumonia, aspiration. 2. Nonobstructive bowel gas pattern.
--- NOTE | ~2020-04-13 | XR_ITS ---
EXAMINATION: XR chest 1V portable INDICATION: Cough and weakness TECHNIQUE: Portable AP chest at 0913 hours COMPARISON: 04/19/2020 FINDINGS: Bibasilar airspace opacities persist without significant change. There is no pleural effusi on or pneumothorax. The cardiac silhouette is normal for technique. Again noted is widening of the ri ght paratracheal stripe. A cardiac loop recorder projects over the left lung base. A small amount of ingested contrast material is seen in the bowel. An endoluminal abdominal aortic stent graft is parti ally imaged. IMPRESSION: 1. Minimal bibasilar airspace opacity, consistent with atelectasis versus pneumonia. 2. Unchanged right paratracheal widening, consistent with lymphadenopathy, metastatic disease, or helio naresh malignancy. Reviewed, dictated and finalized at location A. IMPRESSION: 1. Minimal bibasilar airspace opacity, consistent with atelectasis versus pneum onia. 2. Unchanged right paratracheal widening, consistent with lymphadenopathy, meta static disease, or primary malignancy.
--- NOTE | ~2020-04-13 | XR_ITS ---
EXAMINATION: XR abdomen NG/feed tube insert INDICATION: Nasogastric tube placement TECHNIQUE: Portable AP KUB-NG at 1903 hours COMPARISON: None available FINDINGS: The nasogastric tube is in the stomach. Dilated bowel loops are noted in the upper abdomen. There are airspace opacities of the visualized lung bases. There is a partially imaged endovascular stent in the abdominal aorta. IMPRESSION: 1. Nasogastric tube in the stomach. Reviewed, dictated and finalized at location A.
--- NOTE | ~2020-04-13 | XR_ITS ---
EXAMINATION: XR chest 1V portable INDICATION: Shortness of breath and vomiting TECHNIQUE: Portable AP chest at 1625 hours COMPARISON: 03/20/2020 FINDINGS: There is mild bilateral atelectasis. No acute airspace opacities are identified. There is n o pleural effusion or pneumothorax. Chronic blunting of the right costophrenic angle is again noted. The cardiomediastinal silhouette is stable. A cardiac loop recorder projects over the left thorax. An unchanged density projects in the right paramediastinal region. IMPRESSION: 1. No acute cardiopulmonary abnormality. 2. Unchanged density along the right paramediastinal region. Follow-up with nonemergent CT of the [address] with contrast is recommended. Reviewed, dictated and finalized at location A. IMPRESSION: 1. No acute cardiopulmonary abnormality. 2. Unchanged density along the right paramediastinal region. Follow-up with non emergent CT of the chest with contrast is recommended.
--- NOTE | ~2020-04-13 | XR_ITS ---
EXAMINATION: XR barium swallow modified EXAM DATE: 04/17/2020 11:29 INDICATION: Coffee-ground emesis, possible aspiration. Dysphagia. TECHNIQUE: Modified barium esophagram was performed by myself to administered fluoroscopy, in conjun ction with speech pathologist who administered barium in varying consistencies as per speech patholog ist documentation. This was recorded on tape. The DAP for this procedure was 1.2 Gycm2. FINDINGS: Oral stage: Adequate function. Pharyngeal phase: Limited function. Laryngeal penetration: Demonstrated. Aspiration: Demonstrated. Laryngeal sensitivity: Inconsistent. IMPRESSION: Aspiration demonstrated; Please refer to speech pathologist findings and specific feedi ng recommendations. Reviewed, dictated and finalized at location A. IMPRESSION: Aspiration demonstrated; Please refer to speech pathologist findi ngs and specific feeding recommendations.
--- NOTE | ~2020-04-13 | XR_ITS ---
XR chest 1V portable 04/19/2020 13:31 Indication: Shortness of breath Procedure: AP portable chest Comparison: 03/20/2020 Findings: Patchy bilateral airspace disease, compatible with pneumonia. Small right pleural effusion versus pleural thickening. Persistent right paratracheal mass. No pneumothorax. No edema. Impression: 1: Patchy bilateral airspace disease, compatible with pneumonia. 2: Small right pleural effusion versus pleural thickening. 3: Right paratracheal masslike density. Differential diagnosis includes lymphadenopathy, primary constantino gnancy and metastatic disease. Reviewed, dictated and finalized at location A. Impression: 1: Patchy bilateral airspace disease, compatible with pneumonia. 2: Small right pleural effusion versus pleural thickening. 3: Right paratracheal masslike density. Differential diagnosis includes lymphad enopathy, primary malignancy and metastatic disease.
--- NOTE | ~2020-04-13 | CT_ITS ---
EXAMINATION: CT chest abdomen pelvis w con DATE: 04/13/2020 17:59 INDICATION: Abdominal pain, shortness of breath, sepsis TECHNIQUE: Transaxial computed tomographic images of the chest, abdomen, and pelvis were obtained aft er the administration of 100 cc of Omnipaque 350 intravenous contrast. The dose-length product (DLP) was 600.89 mGy-cm. Automated exposure control and iterative reconstruction technique were employed. COMPARISON: 03/30/2020 FINDINGS: CHEST CT: There is moderate emphysema. There are airspace opacities throughout the lower lobes and right upper and middle lobes. There are trace pleural effusions. No pneumothorax is identified. There is a 3.3 x 2.9 cm mass of the right upper mediastinum corresponding to the chest radiographic finding in questio n. Left axillary lymph nodes measure up to 11 mm in short axis. The heart size is normal. There is mo derate bilateral gynecomastia. There is retained ingested material throughout much of the mildly dist ended esophagus. ABDOMEN/PELVIS CT: There is a 2.3 cm lesion with interrupted peripheral nodular enhancement in the right hepatic lobe, c onsistent with a hemangioma. The spleen, pancreas, and gallbladder are normal. There is mild thickeni ng of the adrenal glands which maintain their adreniform shape. There is patchy perfusion of the kidn eys along with multiple areas of cortical scarring in the kidneys. There is a stable 5.7 fusiform inf rarenal abdominal aortic aneurysm status post bifurcated endoluminal stent graft repair. No pathologi suresh enlarged abdominal or pelvic lymph nodes are identified. An approximately 13.9 x 6.0 cm involvi ng hematoma is seen anterior to the transverse colon. The stomach and small bowel are dilated. The tr ansition point appears to be at a small bowel anastomosis near the umbilicus. The distal small bowel and colon are decompressed. No definite bowel perforation is identified. The bladder is decompressed by Cavanaugh catheter. Bladder wall appears to remain thickened. IMPRESSION: 1. Small bowel obstruction with apparent transition point at a small bowel anastomosis near the umbil icus. 2. Diffuse airspace opacities throughout the right lung and in the left lower lobe, consistent with a telectasis versus pneumonia. 3. No significant change in size of a large evolving abdominal hematoma anterior to the transverse co morenita. 4. Right paratracheal mass accounting for the chest radiographic finding in question which may reflec t lymphadenopathy, metastatic disease, or primary malignancy. 5. Mild left axillary lymphadenopathy of unclear etiology. Reviewed, dictated and finalized at location A. IMPRESSION: 1. Small bowel obstruction with apparent transition point at a small bowel anas tomosis near the umbilicus. 2. Diffuse airspace opacities throughout the right lung and in the left lower l obe, consistent with atelectasis versus pneumonia. 3. No significant change in size of a large evolving abdominal hematoma anterio r to the transverse colon. 4. Right paratracheal mass accounting for the chest radiographic finding in da cortes which may reflect lymphadenopathy, metastatic disease, or primary maligna ncy. 5. Mild left axillary lymphadenopathy of unclear etiology.
--- NOTE | 2020-04-13 16:01 | ECG_ITS ---
Measurements Intervals [place] Rate: 143 P: 22 MS: 118 QRS: 39 QRSD: 94 T: 69 QT: 285 QTc: 441 Interpretive Statements SINUS TACHYCARDIA WITH SHORT MS INTERVAL, POSSIBLE ATRIAL FLUTTER INFERIOR INFARCT, AGE INDETERMINATE BORDERLINE ST-T WAVE ABNORMALITY- HIGH LATERAL LEADS BASELINE ARTIFACT- I, II, III, AVR, AVL, AVF, V1, V3, V5-V6 ABNORMAL ECG Electronically Signed On 04-13-2020 20:52:07 CDT by Brayan Millan D.O.
[2020-04-13 16:32] LABS: Add Urine Microscopic? YES; Amorphous Sediment Urine Few; Appearance Urine Turbid (Clear); Bacteria Urine Trace /hpf; Bilirubin Urine Negative (Negative); Blood Urine 2+ (Negative); Color Urine Amber (Yellow); Glucose Urine UA Negative (Negative); Ketones Urine Negative (Negative); Leukocyte Esterase Ur 3+ LEU/UL (Negative); Mucus Urine Rare /lpf; Nitrate Urine Negative (Negative); Protein Urine 2+ mg/dL (Negative); RBC Urine 21-50 /hpf (0-2); Specific Grav Ur 1.016 (1.001-1.035); Squamous Epithelial Cell Urine Rare /hpf (Few); Urobilinogen Urine Negative mg/dL (<2.0); WBC Clumps Urine Present /HPF; WBC Urine >75 /hpf
[2020-04-13 16:41] LABS: Basophils Absolute Auto 0.1 K/mm3 (0.0-0.1); Basophils Percent Auto 0.3 % (0.2-1.2); Eosinophils Percent Auto 0.2 % (0-4.4); Hematocrit 31.2 % (42.0-52.0); Hemoglobin 10.3 g/dL (14.0-18.0); Immature Granulocyte Absolute 0.13 K/mm3 (0.00-0.031); Immature Granulocyte Percent A 0.5 % (0-0.5); Lymphocytes Absolute Auto 1.06 K/mm3 (0.9-3.2); Lymphocytes Percent Auto 4.3 % (18.3-44.2); Mean Corpuscular Hemoglobin 26.6 pg (26-34); Mean Corpuscular Volume 80.6 fl (80-100); Mean Platelet Volume 10.8 fl (7.4-10.4); Monocytes Absolute Auto 0.4 K/mm3 (0.1-0.6); Monocytes Percent Auto 1.8 % (2.6-8.5); Neutrophils Absolute Auto 22.9 K/mm3 (1.3-6.7); Neutrophils Percent Auto 92.9 % (45.5-73.1); Platelet Count Result 764 k/mm3 (150-375); Red Blood Count 3.87 M/mm3 (4.6-6.20); Red Cell Distribution Width 17.5 % (11.5-14.5); White Blood Count 24.6 K/mm3 (4.5-10.0)
[2020-04-13 16:52] LABS: Lactic Acid Reflex 2.9 mmol/L (0.7-2.1)
[2020-04-13 16:54] LABS: INR 1.1; Partial Thromboplastin Time 30.2 SECONDS (22.3-36.8)
--- NOTE | 2020-04-13 16:56 | ED.NAVMDI ---
HPI - Nausea/Vomiting/Diarrhea General Chief complaint: Nausea/Vomiting/Diarrhea Stated complaint: sob Time Seen by Provider: 04/13/20 16:42 History of Present Illness HPI Narrative: BIBEMS from [place] for coffee ground emesis. He reportedly had 5 episodes of coffee colored emesis today. Following this he was placed on nonrebreather mask due to low O2 saturation. He was recently admitted here with severe anemia 2/2 to GI bleed and reportedly had C. Diff as well. He has aphasia following a stroke and is not able to provide history. Related Data Home Medications Medication Instructions Recorded Confirmed acetaminophen [Tylenol Extra 500 mg PO Q6H PRN 03/19/20 03/19/20 Strength] amlodipine 10 mg PO DAILY 03/19/20 03/19/20 aspirin 81 mg PO DAILY 03/19/20 03/19/20 atorvastatin 80 mg PO HS 03/19/20 03/19/20 ferrous sulfate 325 mg PO EVERY OTHER DAY 03/19/20 03/19/20 gabapentin 400 mg PO TID 03/19/20 03/19/20 silver sulfadiazine [Silvadene] 1 applic TOPICAL Q12H 03/19/20 03/19/20 tamsulosin 0.8 mg PO HS 03/19/20 03/19/20 Allergies Allergy/AdvReac Type Severity Reaction Status Date / Time Penicillins Allergy Unknown Verified 03/19/20 06:50 Review of Systems Review of Systems: ROS unobtainable: Yes unobtainable due to medical condition, unobtainable due to mental status and other (aphasia) [facility] Past Medical History Medical History Aphasia Benign prostate hyperplasia C. difficile diarrhea (~03/2020) Cerebral vascular accident (~06/2019) With resultant, dense right hemiplegia and expressive aphasia. Cholelithiases Chronic kidney disease, stage 3 Baseline creatinine appears to be between 1.3 and 1.50. Dysphagia Status post G-tube placement. Essential hypertension Iron deficiency anemia Peptic ulcer disease (~03/2020) Gastric and duodenal ulcers on EGD. Peripheral vascular disease Status post right [id number] amputation. Seizure (~03/2020) Type 2 diabetes mellitus Hemoglobin A1c was 7.3 on 03/19/2020. Surgical History Surgical History History of abdominal aortic aneurysm (AAA) repair History of gastrostomy tube placement (~03/2020) History of incision and drainage (~2018) Perineal abscess. History of loop recorder History of right above knee amputation (~08/2019) Family History Family History Mother Diabetes mellitus Social History Social History Social History: The patient is a resident of [facility]. He will get up to the wheelchair on occasion but it sounds like he is mainly bed bound. As of 03/19/2020, he is on regular diet otherwise is full care. Before his stroke, he was a smoker and a heavy drinker. His sister, Latoya Gimenez, is his healthcare power of traffic law attorney. She wishes him to be a DNR. Spiritual care concerns: No Exam Const: General: alert and ill appearing acutely and chronically Other: Severe distress. HENMT: Head: normal to inspection Eyes: Pupils: Equal, round and reactive pupils present Resp: Effort & Inspection: tachypneic Auscultation: rales, rhonchi and wheezes Other: Severe respiratory distress Cardio: Rate: tachycardic Rhythm: regular rhythm GI: Inspection: distended Skin: General skin exam: normal color Neuro: Other: Aphasia. Alert. Course Vital Signs Vital signs: Vital Signs Temperature 39.4 C H 04/13/20 15:55 Pulse Rate 143 H 04/13/20 15:55 Respiratory Rate 41 H 04/13/20 15:55 Blood Pressure 109/74 04/13/20 15:55 Pulse Oximetry 90 04/13/20 15:55 Temperature 37.0 C 04/13/20 21:35 Pulse Rate 93 04/13/20 21:35 Respiratory Rate 25 H 04/13/20 21:35 Blood Pressure 77/56 L 04/13/20 21:35 Pulse Oximetry 97 04/13/20 21:35 MDM - Nausea/Vomiting/Diarrhea MDM Narrative Medical decis
[2020-04-13 17:02] LABS: Ovalocytes 1+ (NORMAL); Platelet Estimate Increased (Adequate)
[2020-04-13 17:07] LABS: Albumin Level 4.3 g/dL (3.5-5.1); Alkaline Phosphatase 165 U/L (38-126); Anion Gap 20.3 mmol/L (7-16); Aspartate Amino Transferase 52 U/L (17-59); Bilirubin,Total 0.5 mg/dL (0.2-1.3); Blood Urea Nitrogen 64 mg/dL (9-20); CRP 4.5 mg/dL (<1.0); Calcium 9.1 mg/dL (8.4-10.2); Carbon Dioxide 21 mmol/L (22-30); Chloride 92 mmol/L (98-107); Estimated Glomerular Filt Rate 50; Glucose 182 mg/dL (75-110); Potassium 5.3 mmol/L (3.4-5.0); Sodium 128 mmol/L (137-145)
[2020-04-13 17:08] LABS: Troponin I < 0.012 ng/mL (0.000-0.034)
[2020-04-13 17:14] LABS: Alanine Aminotransferase 47 U/L (4-50)
[2020-04-13] MEDS: SODIUM CHLORIDE 0.9% IV 1,000 ML 999 ML IV CONT ×2 (17:20→20:16)
[2020-04-13] MEDS: PANTOPRAZOLE SODIUM IV 40 MG VIAL 80 MG IV PUSH (17:22)
--- NOTE | 2020-04-13 17:23 | PC.NURSE ---
I was only able to get one set of blood cultures at this time. notified prior to antibiotic administration.
[2020-04-13] MEDS: metroNIDAZOLE 500 MG/ISO 100ML 500 MG/100 ML BAG 100 MG IVPB (19:07)
[2020-04-13 19:36] LABS: Reflex Lactic Acid Yes or No Add Lactic
--- NOTE | 2020-04-13 20:40 | PC.NURSE ---
Gave report to Justen NAVARRO
--- NOTE | 2020-04-13 21:15 | PM.IMHP ---
H&P: HPI History of Present Illness Chief complaint: Coffee-ground emesis and possible aspiration. Narrative: Maynor Inman is a 60-year-old gentleman with history of cerebrovascular accident with resultant dense hemiplegia and aphasia, congestive heart failure, hypertension, and diabetes who presented to the emergency department earlier today via EMS from [facility] with reports of coffee-ground emesis and possible aspiration. He is known to myself and the hospitalist service as I admitted him to the hospital on 03/19/2020 with severe sepsis, acute kidney injury, acute respiratory failure, C diff, pancreatitis, and suspected urinary tract infection however urine culture grew out 3 different organisms representing colonization. His hospitalization was complicated by acute blood loss anemia with melena, with EGD showing gastric and duodenal ulcers. Given ongoing dysphagia a PEG tube was placed on 03/27. Post G-tube placement, he once again had acute blood loss anemia an a CT scan showed a large acute hematoma anterior to the transverse colon which was simply monitored and required no intervention. he also had a witnessed seizure and was started on levetiracetam. After lengthy admission, he was discharged back to his rehab facility on 04/03/2020. As mentioned, he was brought in today with reports of coffee-ground emesis and possible aspiration, according to staff at [facility]. On arrival to the emergency department, he met criteria for septic shock with a urinalysis again suspicious for urinary tract infection And a CT of the abdomen and pelvis revealed a small bowel obstruction, diffuse airspace opacities throughout the right lung and the left lower lobe, and a right paratracheal mass which may reflect lymphadenopathy, metastatic disease, or primary malignancy. He is now being admitted to the intensive care unit for further treatment. The emergency department physician spoke with his sister, who is his healthcare power of deputy attorney general, and she and her siblings want to respect his wishes and are following the DNR paperwork that accompanied him today. I placed a phone call to his sister, but got her voicemail. At the time my evaluation he is alert and his eyes are open however he does not track nor does he answer questions or follow commands. Review of Systems Review of Systems: Narrative: A review of systems is unable to be obtained given his current clinical condition as detailed in HPI. [facility] Past Medical History Medical History Aphasia Benign prostate hyperplasia C. difficile diarrhea (~03/2020) Cerebral vascular accident (~06/2019) With resultant, dense right hemiplegia and expressive aphasia. Cholelithiases Chronic kidney disease, stage 3 Baseline creatinine appears to be between 1.3 and 1.50. Dysphagia Status post G-tube placement. Essential hypertension Iron deficiency anemia Peptic ulcer disease (~03/2020) Gastric and duodenal ulcers on EGD. Peripheral vascular disease Status post right [id number] amputation. Seizure (~03/2020) Type 2 diabetes mellitus Hemoglobin A1c was 7.3 on 03/19/2020. Surgical History Surgical History History of abdominal aortic aneurysm (AAA) repair History of gastrostomy tube placement (~03/2020) History of incision and drainage (~2018) Perineal abscess. History of loop recorder History of right above knee amputation (~08/2019) Family History Family History Mother Diabetes mellitus Social History Social History (Updated 04/13/20 @ 23:55 by Annette Boston PA-C) Social History: The patient is a resident of [facility]. He will get up to the wheelchair on occasion but it sounds like he is mainly bed bound. As of 03/19/2020, he is on regular diet otherwise is full care. Before his
[2020-04-13 22:14] LABS: Hematocrit 24.4 % (42.0-52.0); Hemoglobin 7.9 g/dL (14.0-18.0)
[2020-04-13 22:27] LABS: Anion Gap 17.6 mmol/L (7-16); Blood Urea Nitrogen 65 mg/dL (9-20); Carbon Dioxide 18 mmol/L (22-30); Chloride 94 mmol/L (98-107); Estimated Glomerular Filt Rate 39; Glucose 175 mg/dL (75-110); Magnesium 1.7 mg/dL (1.6-2.3); Potassium 4.6 mmol/L (3.4-5.0); Sodium 125 mmol/L (137-145)
[2020-04-13] MEDS: LACTATED RINGERS 1,000 ML 100 ML IV CONT (23:14)
--- NOTE | 2020-04-13 23:46 | ADMGEN ---
This patient, Maynor Inman, was admitted to Intensive Care Unit-4. Patient/family oriented to hospital policies and general routines including ID bracelet, bed and alarms, visiting hours, pain management, procedures, bathroom and other care routines, personal items, smoking policy, room service/diet, and visiting hours. Valuables list has been completed. Information on how to activate the Rapid Response Team has been discussed. Patient/Family are encouraged to report perceived risks to care and to ask questions if they do not understand what they are told or what they should do.
[2020-04-14] VITALS (27 sets, daily range): BP systolic 90–127; BP diastolic 58–75; PULSE 92–109; RESP 20–26; TEMP 36.8–38.3; O2SAT 92–100
[2020-04-14 02:31] LABS: Creatine Kinase 88 U/L (55-170)
[2020-04-14] MEDS: levETIRAcetam 500MG/NACL 100ML 500 MG/100 ML BAG 400 MG IVPB ×3 (02:51→20:31)
[2020-04-14] MEDS: metroNIDAZOLE 500 MG/ISO 100ML 500 MG/100 ML BAG 100 MG IVPB ×3 (03:08→20:31)
--- NOTE | 2020-04-14 03:42 | PC.NURSE ---
Both contacts listed called to obtain consent for blood transfusion. left message to return call ROBBIN.
--- NOTE | 2020-04-14 05:59 | PC.NURSE ---
0500 04/14/20 repeat call to patients sister and DONELL Klein or consent of blood transfusion.
[2020-04-14 06:05] LABS: Hematocrit 23.6 % (42.0-52.0); Hemoglobin 7.5 g/dL (14.0-18.0); Mean Corpuscular HGB Conc 31.8 g/dl (32-36); Mean Corpuscular Hemoglobin 26.1 pg (26-34); Mean Corpuscular Volume 82.2 fl (80-100); Mean Platelet Volume 11.3 fl (7.4-10.4); Platelet Count Result 527 k/mm3 (150-375); Red Blood Count 2.87 M/mm3 (4.6-6.20); Red Cell Distribution Width 18.1 % (11.5-14.5)
[2020-04-14 06:21] LABS: Alanine Aminotransferase 40 U/L (4-50); Albumin Level 3.8 g/dL (3.5-5.1); Alkaline Phosphatase 137 U/L (38-126); Anion Gap 20.9 mmol/L (7-16); Aspartate Amino Transferase 61 U/L (17-59); Bilirubin,Total 0.5 mg/dL (0.2-1.3); Blood Urea Nitrogen 68 mg/dL (9-20); Calcium 8.6 mg/dL (8.4-10.2); Carbon Dioxide 19 mmol/L (22-30); Chloride 93 mmol/L (98-107); Estimated Glomerular Filt Rate 30; Glucose 129 mg/dL (75-110); Magnesium 1.7 mg/dL (1.6-2.3); Potassium 4.9 mmol/L (3.4-5.0); Sodium 128 mmol/L (137-145)
[2020-04-14 06:28] LABS: Creatinine Urine 82.2 mg/dL
[2020-04-14 06:56] LABS: Sodium Urine Random 13 meq/L
[2020-04-14 08:05] LABS: Band Neutrophils Percent 11 % (0-6); Monocytes Percent Manual 4 % (3-9); Neutrophils Percent Manual 76 % (46-73); Platelet Estimate Adequate (Adequate); Total Cells Counted 100
[2020-04-14 08:06] LABS: Anisocytosis 1+ (NORMAL); Hypochromasia 1+ (NORMAL); Poikilocytosis 1+ (NORMAL)
[2020-04-14] MEDS: LACTATED RINGERS 1,000 ML 100 ML IV CONT ×2 (08:56→17:06)
[2020-04-14] MEDS: PANTOPRAZOLE SODIUM IV 40 MG VIAL IV PUSH ×2 (08:56→20:32)
--- NOTE | 2020-04-14 09:45 | PM.CNGS ---
Assessment and Plan Assessment and plan (1) Small bowel obstruction: Code(s): K56.609 - Unspecified intestinal obstruction, unspecified as to partial versus complete obstruction Status: Acute Assessment and Plan: CT scan reviewed and discussed with the patient. Evidence of small bowel obstruction. NG tube in place with high output. Would continue with conservative measures for now, including NG tube decompression, bowel rest, IV fluids, analgesics, and antiemetics. We will follow him with serial abdominal exams and imaging. Could consider Gastrografin small-bowel follow through in the next few days to further assess the small bowel obstruction. Due to the patient's multiple co-morbidities and overall current state of health, he is a very poor surgical candidate. I discussed the plan of care with the patient. Thank you for allowing us to see the patient in consultation and we will continue to follow along with you. (2) Abdominal hematoma: Onset Date: ~03/2020 Code(s): S30.1XXA - Contusion of abdominal wall, initial encounter Status: Acute Assessment and Plan: Appears stable on CT. He is a poor surgical candidate as mentioned above. Continue to monitor and trend labs. No plan for surgical intervention at this time. (3) Septic shock: Code(s): A41.9 - Sepsis, unspecified organism; R65.21 - Severe sepsis with septic shock Status: Acute Assessment and Plan: Sepsis criteria met on admission with tachycardia, fever, tachypnea, and leukocytosis in the presence of known infection. Lactic acid 2.9 on admission and 3.0 overnight. Patient with pneumonia and suspected UTI. Continue IV broad-spectrum antibiotics and patient was IV fluid resuscitated in the ER. Blood and urine cultures pending. Not requiring vasopressor support at this time. Management per primary service and Tug Master. (4) Aspiration pneumonia: Qualifiers: Aspiration pneumonia type: unspecified Laterality: bilateral Lung location: unspecified part of lung Qualified Code(s): J69.0 - Pneumonitis due to inhalation of food and vomit Code(s): J69.0 - Pneumonitis due to inhalation of food and vomit Status: Acute Assessment and Plan: On broad-spectrum IV antibiotics. Mangement per primary service. (5) Bacteriuria with pyuria: Code(s): R82.71 - Bacteriuria; R82.81 - Pyuria Status: Acute Assessment and Plan: Suspicion for UTI. Urine culture pending. Currently on broad-spectrum IV antibiotics. Management per primary service. (6) Acute on chronic renal failure: Onset Date: Unknown Code(s): N17.9 - Acute kidney failure, unspecified; N18.9 - Chronic kidney disease, unspecified Status: Acute (7) C. difficile diarrhea: Onset Date: ~03/2020 Code(s): A04.72 - Enterocolitis due to Clostridium difficile, not specified as recurrent Status: Acute Assessment and Plan: Recently treated for this. Management per Hospitalist. (8) Anemia: Code(s): D64.9 - Anemia, unspecified Status: Acute Assessment and Plan: Hgb dropped to 7.9 from 10.3 overnight following IV fluid resuscitation and is now 7.5 this morning. There was report of coffee-ground emesis prior to admission. NG output does not have any bloody appearance. No reported bloody or black bowel movements. Does not appear that GI has been consulted. Some of the drop of the hemoglobin is likely dilutional. He is now hemodynamically stable this morning following fluid resuscitation. Continue to trend labs and transfuse as indicated. This is unlikely due to the hematoma, which appeared stable on the CT scan. (9) Dysphagia: Code(s): R13.10 - Dysphagia, unspecified Status: Acute Assessment and Plan: S/p G tube placement. Currently NPO. (10) Hypertension: Code(s): I10 - Essential (primary) hypertension Status: Acute (11) Diabetes: Code(s): E11.9 - Type 2
[2020-04-14 11:56] LABS: Glucose Point of Care 117 (65-105)
--- NOTE | 2020-04-14 12:09 | WPDCNINT ---
Assessment and Plan Assessment and plan (1) Severe sepsis: Code(s): A41.9 - Sepsis, unspecified organism; R65.20 - Severe sepsis without septic shock Status: Acute Assessment and Plan: patient with severe sepsis, likely due to UTI, hypovolemia secondary to coffee-ground emesis, diarrhea, pneumonia - continue patient on vancomycin, cefepime and Flagyl - blood, urine cultures have been obtained - patient received adequate IV fluids in the ED per sepsis protocol, currently on maintenance IV fluids. - Cheetah was performed in the ICU, patient was a non fluid responder (2) Small bowel obstruction: Code(s): K56.609 - Unspecified intestinal obstruction, unspecified as to partial versus complete obstruction Status: Acute Assessment and Plan: patient presented with nausea, vomiting and abdominal pain. CT scan of the abdomen and pelvis showed small-bowel obstruction - NG tube inserted in the ICU with 1600 mL drainage is instantly - appreciate surgery evaluation and recommendation - continue NG tube to suction (3) Pneumonia: Qualifiers: Pneumonia type: aspiration pneumonia Aspiration pneumonia type: due to vomit Laterality: unspecified laterality Lung location: unspecified part of lung Qualified Code(s): J69.0 - Pneumonitis due to inhalation of food and vomit Code(s): J18.9 - Pneumonia, unspecified organism Status: Acute Assessment and Plan: likely aspiration pneumonia secondary to small-bowel obstruction, vomiting - patient is on cefepime, metronidazole and vancomycin - currently on room air with adequate O2 sats, will continue to monitor (4) Anemia: Qualifiers: Anemia type: other cause Other causes of anemia: other cause, not classified Qualified Code(s): D64.89 - Other specified anemias Code(s): D64.9 - Anemia, unspecified Status: Acute Assessment and Plan: patient was recently discharge from the hospital where he was found to have gastric and duodenal ulcer on 03/23/2020. Patient also had PEG tube placed on 03/27/2020 which was complicated by a large hematoma anterior to the transverse colon. It was being monitored without any intervention by surgery. CT scan of the abdomen and pelvis on 04/13/2020 continue to show and approximately 13.9 x 6 cm hematoma seen anterior to the transverse colon, With no significant change in size. - Patient had coffee-ground emesis, - hemoglobin dropped from 10.3 on 04/13/2022 7.5 this morning. - Will transfuse 1 unit of packed RBC - monitor H&H - continue PPI IV q.12 hours (5) Coffee ground emesis: Code(s): K92.0 - Hematemesis Status: Acute Assessment and Plan: patient with recent ED on 03/23/2020 showing gastric and duodenal ulcer - continue PPI (6) UTI (urinary tract infection): Qualifiers: Urinary tract infection type: site unspecified Hematuria presence: without hematuria Qualified Code(s): N39.0 - Urinary tract infection, site not specified Code(s): N39.0 - Urinary tract infection, site not specified Status: Acute Assessment and Plan: UA reflective of a UTI, this could also be contributing to his severe sepsis - continue antibiotics as above (7) Chronic kidney disease, stage 3: Code(s): N18.3 - Chronic kidney disease, stage 3 (moderate) Status: Acute Assessment and Plan: patient with history of stage 3 chronic kidney disease, slightly elevated creatinine this admission - continue IV fluids, patient also to receive 1 unit of packed RBC - continue to monitor urine output, renal function and electrolytes (8) Suspected 2019 novel coronavirus infection: Code(s): Z20.828 - Contact with and (suspected) exposure to other viral communicable diseases Status: Acute Assessment and Plan: patient presenting from a long term, will check for SARS-CoV-2 PCR - continue airborne, droplet, contact precautions
[2020-04-14] MEDS: SODIUM CHLORIDE 0.9% IV 250 ML 30 ML IV CONT (12:10)
[2020-04-14 15:35] LABS: Hematocrit 27.6 % (42.0-52.0); Hemoglobin 9.2 g/dL (14.0-18.0)
[2020-04-14 15:51] LABS: Glucose Point of Care 109 (65-105)
[2020-04-14 17:23] LABS: Glucose Point of Care 96 (65-105)
[2020-04-14 23:25] LABS: Glucose Point of Care 111 (65-105)
[2020-04-15] VITALS (13 sets, daily range): BP systolic 95–149; BP diastolic 60–85; PULSE 70–112; RESP 17–27; TEMP 36.3–37.8; O2SAT 94–100
[2020-04-15] MEDS: metroNIDAZOLE 500 MG/ISO 100ML 500 MG/100 ML BAG 100 MG IVPB ×3 (04:32→20:55)
[2020-04-15] MEDS: LACTATED RINGERS 1,000 ML 100 ML IV CONT ×2 (04:32→20:10)
[2020-04-15 05:31] LABS: Basophils Absolute Auto 0.1 K/mm3 (0.0-0.1); Basophils Percent Auto 0.6 % (0.2-1.2); Eosinophils Absolute Auto 0.1 K/mm3 (0-0.3); Eosinophils Percent Auto 0.8 % (0-4.4); Hematocrit 32.3 % (42.0-52.0); Hemoglobin 10.2 g/dL (14.0-18.0); Immature Granulocyte Absolute 0.11 K/mm3 (0.00-0.031); Immature Granulocyte Percent A 0.7 % (0-0.5); Lymphocytes Absolute Auto 0.91 K/mm3 (0.9-3.2); Lymphocytes Percent Auto 5.9 % (18.3-44.2); Mean Corpuscular HGB Conc 31.6 g/dl (32-36); Mean Corpuscular Hemoglobin 27.3 pg (26-34); Mean Corpuscular Volume 86.4 fl (80-100); Mean Platelet Volume 10.6 fl (7.4-10.4); Monocytes Absolute Auto 0.7 K/mm3 (0.1-0.6); Monocytes Percent Auto 4.5 % (2.6-8.5); Neutrophils Absolute Auto 13.5 K/mm3 (1.3-6.7); Neutrophils Percent Auto 87.5 % (45.5-73.1); Platelet Count Result 439 k/mm3 (150-375); Red Blood Count 3.74 M/mm3 (4.6-6.20); Red Cell Distribution Width 17.6 % (11.5-14.5); White Blood Count 15.4 K/mm3 (4.5-10.0)
[2020-04-15 05:47] LABS: Alanine Aminotransferase 39 U/L (4-50); Albumin Level 3.8 g/dL (3.5-5.1); Alkaline Phosphatase 145 U/L (38-126); Anion Gap 21.1 mmol/L (7-16); Aspartate Amino Transferase 58 U/L (17-59); Bilirubin,Total 0.7 mg/dL (0.2-1.3); Blood Urea Nitrogen 63 mg/dL (9-20); Carbon Dioxide 18 mmol/L (22-30); Chloride 99 mmol/L (98-107); Estimated Glomerular Filt Rate 30; Glucose 91 mg/dL (75-110); Potassium 5.1 mmol/L (3.4-5.0); Sodium 133 mmol/L (137-145)
[2020-04-15] MEDS: levETIRAcetam 500MG/NACL 100ML 500 MG/100 ML BAG 200 MG IVPB (09:44)
[2020-04-15] MEDS: PANTOPRAZOLE SODIUM IV 40 MG VIAL IV PUSH ×2 (09:45→20:15)
[2020-04-15 13:00] LABS: Glucose Point of Care 99 (65-105)
--- NOTE | 2020-04-15 13:28 | PM.PNGS ---
Progress Note: A&P Assessment and Plan (1) Small bowel obstruction: Code(s): K56.609 - Unspecified intestinal obstruction, unspecified as to partial versus complete obstruction Status: Acute Assessment and Plan: X-ray this morning improved. Still has high NG output. Continue with conservative management, NG tube to suction and NPO Poor surgical candidate Will consider SBS tomorrow. (2) Abdominal hematoma: Onset Date: ~03/2020 Code(s): S30.1XXA - Contusion of abdominal wall, initial encounter Status: Acute Assessment and Plan: Remains stable. Continue to monitor. (3) Septic shock: Code(s): A41.9 - Sepsis, unspecified organism; R65.21 - Severe sepsis with septic shock Status: Acute Assessment and Plan: Sepsis criteria met on admission with tachycardia, fever, tachypnea, and leukocytosis in the presence of known infection. Lactic acid 3.0. Patient with pneumonia and suspected UTI. Continue IV broad-spectrum antibiotics and IV fluids. Blood and urine cultures pending. Management per primary service and Talent Engineer. (4) Aspiration pneumonia: Qualifiers: Aspiration pneumonia type: unspecified Laterality: bilateral Lung location: unspecified part of lung Qualified Code(s): J69.0 - Pneumonitis due to inhalation of food and vomit Code(s): J69.0 - Pneumonitis due to inhalation of food and vomit Status: Acute Assessment and Plan: On broad-spectrum IV antibiotics. Mangement per primary service. (5) Bacteriuria with pyuria: Code(s): R82.71 - Bacteriuria; R82.81 - Pyuria Status: Acute Assessment and Plan: Suspicion for UTI. Urine culture pending. Currently on broad-spectrum IV antibiotics. Management per primary service. (6) Acute on chronic renal failure: Onset Date: Unknown Code(s): N17.9 - Acute kidney failure, unspecified; N18.9 - Chronic kidney disease, unspecified Status: Acute (7) C. difficile diarrhea: Onset Date: ~03/2020 Code(s): A04.72 - Enterocolitis due to Clostridium difficile, not specified as recurrent Status: Acute Assessment and Plan: Recently treated for this. Management per Hospitalist. (8) Anemia: Qualifiers: Anemia type: other cause Other causes of anemia: other cause, not classified Qualified Code(s): D64.89 - Other specified anemias Code(s): D64.9 - Anemia, unspecified Status: Acute Assessment and Plan: Hgb up to 10.2 this morning after blood transfusion. Continue to trend labs. Hematoma stable. (9) Dysphagia: Code(s): R13.10 - Dysphagia, unspecified Status: Acute Assessment and Plan: S/p G tube placement. Will continue to hold tube feedings due to SBO. (10) Hypertension: Code(s): I10 - Essential (primary) hypertension Status: Acute (11) Diabetes: Code(s): E11.9 - Type 2 diabetes mellitus without complications Status: Acute Additional Plan Discussed the plan of care with Dr. Narayan. Subjective Subjective Date/Time Seen: 04/15/20 10:35 Patient reports: pain is less Interval history: Patient seen and examined. Hx of stroke with aphasia. Unable to tell me if he has had a bowel movement or is passing gas. No documented BM. NG output overnight 1200 mL. Patient does state he is still having abdominal pain but better. Review of Systems Review of Systems: ROS unobtainable: Yes unobtainable due to medical condition Exam Const: General: comfortable, no acute distress, alert and awake Limitations: language barrier (aphasia) GI: Inspection: non-distended and other (LUQ Peg tube clamped) GI Palp: Yes Soft to palpation, Yes Tenderness to palpation present (GI) (diffusely tender), No Guarding due to palpation present (GI) and No Rebound tenderness present Auscultation: normal bowel sounds Skin: General skin exam: normal color Extrem: General: no clubbing, cyanosis
--- NOTE | 2020-04-15 14:55 | PM.IMPN ---
Progress Note: A&P Assessment and Plan (1) Septic shock: Code(s): A41.9 - Sepsis, unspecified organism; R65.21 - Severe sepsis with septic shock Status: Resolved Assessment and Plan: pt can be transfered to medical floor pt is dnr pt prognosis in guarded with all his medical conditions and dense stroke awaiting covid result (2) Chronic kidney disease, stage 3: Code(s): N18.3 - Chronic kidney disease, stage 3 (moderate) Status: Acute (3) Type 2 diabetes mellitus: Code(s): E11.9 - Type 2 diabetes mellitus without complications Status: Acute (4) Bacteriuria with pyuria: Code(s): R82.71 - Bacteriuria; R82.81 - Pyuria Status: Acute Assessment and Plan: continue iv fluids (5) C. difficile diarrhea: Onset Date: ~03/2020 Code(s): A04.72 - Enterocolitis due to Clostridium difficile, not specified as recurrent Status: Acute Assessment and Plan: NG tube to suction and NPO (6) Essential hypertension: Code(s): I10 - Essential (primary) hypertension Status: Acute (7) Electrolyte abnormality: Code(s): E87.8 - Other disorders of electrolyte and fluid balance, not elsewhere classified Status: Acute Assessment and Plan: continue to monitor potassium is 5.1, sodium is 133 (8) Coffee ground emesis: Code(s): K92.0 - Hematemesis Status: Acute Assessment and Plan: continue iv protonix, continue to monitor hb/ hct, hold any anticoagulation (9) Peritracheal mass: Code(s): R22.2 - Localized swelling, mass and lump, trunk Status: Acute (10) Abdominal hematoma: Onset Date: ~03/2020 Code(s): S30.1XXA - Contusion of abdominal wall, initial encounter Status: Acute Assessment and Plan: hold anticoagulation (11) Pneumonia: Qualifiers: Pneumonia type: aspiration pneumonia Aspiration pneumonia type: due to vomit Laterality: unspecified laterality Lung location: unspecified part of lung Qualified Code(s): J69.0 - Pneumonitis due to inhalation of food and vomit Code(s): J18.9 - Pneumonia, unspecified organism Status: Acute Assessment and Plan: continue iv vancomycin and iv rocephin likley aspiration pneumonia rather than covid (12) Seizure: Onset Date: ~03/2020 Code(s): R56.9 - Unspecified convulsions Status: Acute Assessment and Plan: continue iv harshad Subjective Date/time seen: 04/15/20 14:55 Interval history: Storm is a 60-year-old gentleman with history of 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 Pt is swabbed for COVID pt is on 1-2 liters by Nasal cannulae pt can be transfered to the medical floor. Review of Systems Review of Systems: ROS unobtainable: Yes unobtainable due to medical condition Exam Narrative: Exam Narrative: Temp Pulse Resp BP Pulse Ox 37.3 C 105 H 27 H 149/80 H 97 04/15/20 16:00 04/15/20 16:00 04/15/20 16:00 04/15/20 16:00 04/15/20 16:00 NG tube to suction Somnolent chronically ill appearing male General: pt wearing 1-2 liters of oxygen, mild respiratory distress pt seen but not fully examined Objective Data Vital Signs Vital Signs: Vital Signs - 24 hr 04/14/20 15:32 04/14/20 15:47 04/14/20 16:00 Temperature 37.6 C H Pulse Rate 103 H 105 H Respiratory Rate 23 H Blood Pressure 114/72 Pulse Oximetry 96 99 04/14/20 18:00 04/14/20 20:00 04/14/20 21:57 Temperature 38.3 C H 38.3 C H Pulse Rate 109 H 109 H Respiratory Rate 23 H 25 H Blood Pressure 120/72 119/67 Pulse Oximetry 95 95 04/14/20 22:00 04/14/20 23:01 04/15/20 00:00 Temperature
[2020-04-15 17:57] LABS: SARS-CoV-2 RNA PCR Negative
[2020-04-15 18:22] LABS: Glucose Point of Care 93 (65-105)
[2020-04-15 18:48] LABS: SARS-CoV-2 RNA PCR Negative
--- NOTE | 2020-04-15 18:52 | PC.NURSE ---
This patient, Maynor Inman, was transferred to [facility] on 04/15/20 at 1850. Personal belongings sent with patient, no personal belongings in room. Report given to RN. Appropriate documentation sent with patient.
[2020-04-15] MEDS: SODIUM POLYSTYRENE SULFONONATE 15 GM/60 ML BTL PO (20:23)
[2020-04-15] MEDS: levETIRAcetam 500MG/NACL 100ML 500 MG/100 ML BAG 400 MG IVPB (21:48)
[2020-04-15 23:49] LABS: Glucose Point of Care 132 (65-105)
[2020-04-16] MEDS: metroNIDAZOLE 500 MG/ISO 100ML 500 MG/100 ML BAG 100 MG IVPB ×3 (05:04→20:29)
[2020-04-16 05:51] LABS: Glucose Point of Care 99 (65-105)
[2020-04-16 06:00] VITALS: BP 118/66; PULSE 95; RESP 22; TEMP 37.5; O2SAT 96
[2020-04-16 06:15] LABS: Hematocrit 26.1 % (42.0-52.0); Hemoglobin 8.4 g/dL (14.0-18.0); Mean Corpuscular HGB Conc 32.2 g/dl (32-36); Mean Corpuscular Hemoglobin 27.4 pg (26-34); Mean Platelet Volume 11.1 fl (7.4-10.4); Platelet Count Result 465 k/mm3 (150-375); Red Blood Count 3.07 M/mm3 (4.6-6.20); Red Cell Distribution Width 17.5 % (11.5-14.5); White Blood Count 13.6 K/mm3 (4.5-10.0)
[2020-04-16 06:49] LABS: Anion Gap 15.6 mmol/L (7-16); Blood Urea Nitrogen 47 mg/dL (9-20); Calcium 8.7 mg/dL (8.4-10.2); Carbon Dioxide 21 mmol/L (22-30); Chloride 105 mmol/L (98-107); Estimated Glomerular Filt Rate 44; Glucose 99 mg/dL (75-110); Potassium 3.6 mmol/L (3.4-5.0); Sodium 138 mmol/L (137-145)
[2020-04-16] MEDS: LACTATED RINGERS 1,000 ML 100 ML IV CONT ×2 (09:18→23:04)
[2020-04-16] MEDS: levETIRAcetam 500MG/NACL 100ML 500 MG/100 ML BAG 400 MG IVPB ×2 (09:18→22:33)
[2020-04-16] MEDS: PANTOPRAZOLE SODIUM IV 40 MG VIAL IV PUSH ×2 (09:21→20:18)
[2020-04-16 09:50] VITALS: O2SAT 92
--- NOTE | 2020-04-16 11:49 | PM.IMPN ---
Progress Note: A&P Assessment and Plan (1) Septic shock: Code(s): A41.9 - Sepsis, unspecified organism; R65.21 - Severe sepsis with septic shock Status: Resolved Assessment and Plan: pt can be transfered to medical floor pt is dnr pt prognosis in guarded with all his medical conditions and dense stroke awaiting covid result (2) Chronic kidney disease, stage 3: Code(s): N18.3 - Chronic kidney disease, stage 3 (moderate) Status: Acute (3) Type 2 diabetes mellitus: Code(s): E11.9 - Type 2 diabetes mellitus without complications Status: Acute (4) Bacteriuria with pyuria: Code(s): R82.71 - Bacteriuria; R82.81 - Pyuria Status: Acute Assessment and Plan: continue iv fluids (5) C. difficile diarrhea: Onset Date: ~03/2020 Code(s): A04.72 - Enterocolitis due to Clostridium difficile, not specified as recurrent Status: Acute Assessment and Plan: NG tube to suction and NPO inserted due to coffee ground vomit may be able to remove today and start diet await surgerys ok (6) Essential hypertension: Code(s): I10 - Essential (primary) hypertension Status: Chronic (7) Electrolyte abnormality: Code(s): E87.8 - Other disorders of electrolyte and fluid balance, not elsewhere classified Status: Acute Assessment and Plan: continue to monitor potassium is 5.1, sodium is 133 (8) Coffee ground emesis: Code(s): K92.0 - Hematemesis Status: Acute Assessment and Plan: continue iv protonix, continue to monitor hb/ hct, hold any anticoagulation (9) Peritracheal mass: Code(s): R22.2 - Localized swelling, mass and lump, trunk Status: Acute (10) Abdominal hematoma: Onset Date: ~03/2020 Code(s): S30.1XXA - Contusion of abdominal wall, initial encounter Status: Acute Assessment and Plan: hold anticoagulation (11) Pneumonia: Qualifiers: Pneumonia type: aspiration pneumonia Aspiration pneumonia type: due to vomit Laterality: unspecified laterality Lung location: unspecified part of lung Qualified Code(s): J69.0 - Pneumonitis due to inhalation of food and vomit Code(s): J18.9 - Pneumonia, unspecified organism Status: Acute Assessment and Plan: continue iv vancomycin and iv rocephin roxanne aspiration pneumonia (12) Seizure: Onset Date: ~03/2020 Code(s): R56.9 - Unspecified convulsions Status: Acute Assessment and Plan: continue iv keppra Subjective Date/time seen: 04/16/20 11:49 Interval history: Storm is a 60-year-old gentleman with history of 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 Pt still has mild cough and SOB, negative for COVID no further GI bleeding. Pt is still NPO with NG tube in situ Review of Systems Respiratory: Respiratory: Reports chest congestion, Reports cough and Reports dyspnea Gastrointestinal: Gastrointestinal: Reports coffee ground emesis Exam Narrative: Exam Narrative: Temp Pulse Resp BP Pulse Ox 37.3 C 105 H 27 H 149/80 H 97 04/15/20 16:00 04/15/20 16:00 04/15/20 16:00 04/15/20 16:00 04/15/20 16:00 NG tube in insitu Somnolent chronically ill appearing male General: pt wearing 1-2 liters of oxygen, mild respiratory distress RRR chest is BL crackles at bases legs non edematous Neuro chronically ill moving all 4 limbs some speech Objective Data Vital Signs Vital Signs: Vital Signs - 24 hr 04/15/20 12:00 04/15/20 14:00 04/15/20 16:00 Temperature 37.3 C 37.3 C Pulse Rate 99 100 105 H Respiratory Rate 19 20 27 H Blood Pressure 111/72 120/67 149/80 H Pulse Oximet
[2020-04-16 12:05] LABS: Glucose Point of Care 110 (65-105)
--- NOTE | 2020-04-16 12:13 | PM.PNGS ---
Progress Note: A&P Assessment and Plan (1) Small bowel obstruction: Code(s): K56.609 - Unspecified intestinal obstruction, unspecified as to partial versus complete obstruction Status: Acute Assessment and Plan: better, exam benign, will trial clamp NG, clears (2) Aspiration pneumonia: Qualifiers: Aspiration pneumonia type: unspecified Laterality: bilateral Lung location: unspecified part of lung Qualified Code(s): J69.0 - Pneumonitis due to inhalation of food and vomit Code(s): J69.0 - Pneumonitis due to inhalation of food and vomit Status: Acute Assessment and Plan: stable, mgmt per primary (3) UTI (urinary tract infection): Qualifiers: Hematuria presence: without hematuria Urinary tract infection type: site unspecified Qualified Code(s): N39.0 - Urinary tract infection, site not specified Code(s): N39.0 - Urinary tract infection, site not specified Status: Acute Assessment and Plan: stable, mgmt per primary (4) Septic shock: Code(s): A41.9 - Sepsis, unspecified organism; R65.21 - Severe sepsis with septic shock Status: Acute Assessment and Plan: resolved Subjective Subjective Date/Time Seen: 04/16/20 12:13 feels better, no N/V, hungry, +bowel fxn Review of Systems Constitutional: Constitutional: Denies chills, Reports fatigue, Reports lethargy and Reports weakness Cardiovascular: Cardiovascular: Denies chest pain Respiratory: Respiratory: Reports dyspnea on exertion Gastrointestinal: Gastrointestinal: Denies abdominal pain, Reports bloating, Denies constipation, Denies diarrhea, Denies nausea and Denies vomiting Exam Const: General: no acute distress Resp: Auscultation: diminished lung sounds Cardio: Rate: regular rate Rhythm: regular rhythm GI: Other: S, sl dist, NT Objective Data Vital Signs Vital Signs: Vital Signs - 24 hr 04/15/20 14:00 04/15/20 16:00 04/15/20 19:02 Temperature 37.3 C 37.1 C Pulse Rate 100 105 H 104 H Respiratory Rate 20 27 H 18 Blood Pressure 120/67 149/80 H 121/73 Pulse Oximetry 94 97 95 04/15/20 20:00 04/15/20 21:32 04/16/20 06:00 Temperature 37.8 C H 37.5 C Pulse Rate 105 H 105 H 95 Respiratory Rate 22 H 22 H 22 H Blood Pressure 113/66 118/66 Pulse Oximetry 94 94 96 04/16/20 09:50 Temperature Pulse Rate Respiratory Rate Blood Pressure Pulse Oximetry 92 Intake/Output Intake/Output: Intake & Output 04/13/20 04/14/20 04/15/20 04/16/20 23:59 23:59 23:59 23:59 Intake Total 2750 3185 2800 1320 Output Total 2600 2945 3750 600 Balance 150 240 -950 720 Meds/Results Medications: Active Medications Generic Name Dose Route Start Last Admin Trade Name Freq PRN Reason Stop Dose Admin Dextrose 12.5 gm 04/13/20 21:19 Dextrose 50% Syringe IV PUSH PRN PRN Hypoglycemia Protocol Glucagon 1 mg 04/13/20 21:19 Glucagon For Inj IM PRN PRN Hypoglycemia Protocol Glucose 15 gm 04/13/20 21:19 Glutose 15 PO PRN PRN Hypoglycemia Protocol Lactated Ringer's 1,000 mls @ 100 mls/hr 04/13/20 19:30 04/16/20 09:18 Lr - Lactated Ringers Iv IV CONT 100 mls/hr .Q10H SHARRI Administration Dextrose 1,000 mls @ 100 mls/hr 04/13/20 21:19 Dextrose 5% 1,000 Ml IVPB PRN PRN Hypoglycemia Protocol Cefepime HCl 2 gm in 50 mls @ 100 mls/hr 04/14/20 22:00 04/15/20 22:30 Maxipime 2 Gm/D5w 50 Ml IVPB Infused Q24H SHARIR Infusion Metronidazole 500 mg in 100 mls @ 100 mls/hr 04/14/20 05:00 04/16/20 11:59 Flagyl 500 Mg/Iso Soln 100 Ml IVPB 100 mls/hr Q8H SHARRI Administration Levetiracetam 500 mg in 100 mls @ 400 mls/hr 04/14/20 01:05 04/16/20 11:22 Keppra Iv IVPB Infused Q12HR SHARRI Infusion Vancomycin HCl 1,000 mg in 250 mls @ 250 mls/hr 04/15/20 19:00 04/15/20 23:00 Vancomycin 1,000 Mg/D5w 250 Ml IVPB Infused Q48H SHARRI Infusion Insulin As
[2020-04-16 14:00] VITALS: BP 150/79; PULSE 95; RESP 16; TEMP 37; O2SAT 96
[2020-04-16 18:13] LABS: Glucose Point of Care 95 (65-105)
[2020-04-16 22:00] VITALS: BP 158/86; PULSE 97; RESP 20; TEMP 37.2; O2SAT 95
[2020-04-17 00:10] LABS: Glucose Point of Care 95 (65-105)
[2020-04-17] MEDS: metroNIDAZOLE 500 MG/ISO 100ML 500 MG/100 ML BAG 100 MG IVPB ×3 (04:33→21:02)
[2020-04-17 06:00] VITALS: BP 154/86; PULSE 83; RESP 20; TEMP 36.7; O2SAT 97
[2020-04-17 06:11] LABS: Glucose Point of Care 85 (65-105)
[2020-04-17 06:25] LABS: Hematocrit 26.1 % (42.0-52.0); Hemoglobin 8.2 g/dL (14.0-18.0); Mean Corpuscular HGB Conc 31.4 g/dl (32-36); Mean Corpuscular Hemoglobin 27.1 pg (26-34); Mean Corpuscular Volume 86.1 fl (80-100); Mean Platelet Volume 10.7 fl (7.4-10.4); Platelet Count Result 466 k/mm3 (150-375); Red Blood Count 3.03 M/mm3 (4.6-6.20); Red Cell Distribution Width 17.5 % (11.5-14.5); White Blood Count 11.5 K/mm3 (4.5-10.0)
[2020-04-17 06:51] LABS: Anion Gap 13.5 mmol/L (7-16); Blood Urea Nitrogen 30 mg/dL (9-20); Calcium 8.8 mg/dL (8.4-10.2); Carbon Dioxide 21 mmol/L (22-30); Chloride 109 mmol/L (98-107); Estimated Glomerular Filt Rate > 60; Glucose 87 mg/dL (75-110); Potassium 3.5 mmol/L (3.4-5.0); Sodium 140 mmol/L (137-145)
[2020-04-17] MEDS: levETIRAcetam 500MG/NACL 100ML 500 MG/100 ML BAG 400 MG IVPB ×2 (09:11→20:30)
[2020-04-17] MEDS: PANTOPRAZOLE SODIUM IV 40 MG VIAL IV PUSH ×2 (09:12→20:51)
[2020-04-17] MEDS: LACTATED RINGERS 1,000 ML 100 ML IV CONT (10:31)
[2020-04-17 10:36] VITALS: O2SAT 98
--- NOTE | 2020-04-17 11:41 | PM.IMPN ---
Progress Note: A&P Assessment and Plan (1) Septic shock: Code(s): A41.9 - Sepsis, unspecified organism; R65.21 - Severe sepsis with septic shock Status: Resolved Assessment and Plan: pt is dnr pt prognosis in guarded with all his medical conditions and dense stroke (2) Chronic kidney disease, stage 3: Code(s): N18.3 - Chronic kidney disease, stage 3 (moderate) Status: Acute Assessment and Plan: creat is 1.4 (3) Type 2 diabetes mellitus: Code(s): E11.9 - Type 2 diabetes mellitus without complications Status: Chronic Assessment and Plan: accuchecks, SSI (4) Bacteriuria with pyuria: Code(s): R82.71 - Bacteriuria; R82.81 - Pyuria Status: Acute Assessment and Plan: continue iv fluids (5) C. difficile diarrhea: Onset Date: ~03/2020 Code(s): A04.72 - Enterocolitis due to Clostridium difficile, not specified as recurrent Status: Acute Assessment and Plan: NG tube removed will follow swallow theraphy recommendations (6) Essential hypertension: Code(s): I10 - Essential (primary) hypertension Status: Chronic Assessment and Plan: BP 154/ 86 (7) Electrolyte abnormality: Code(s): E87.8 - Other disorders of electrolyte and fluid balance, not elsewhere classified Status: Acute Assessment and Plan: continue to monitor potassium is 3.5, creat is 1.4 (8) Coffee ground emesis: Code(s): K92.0 - Hematemesis Status: Acute Assessment and Plan: continue iv protonix, continue to monitor hb/ hct, hold any anticoagulation (9) Peritracheal mass: Code(s): R22.2 - Localized swelling, mass and lump, trunk Status: Acute (10) Abdominal hematoma: Onset Date: ~03/2020 Code(s): S30.1XXA - Contusion of abdominal wall, initial encounter Status: Acute Assessment and Plan: hold anticoagulation (11) Pneumonia: Qualifiers: Pneumonia type: aspiration pneumonia Aspiration pneumonia type: due to vomit Laterality: unspecified laterality Lung location: unspecified part of lung Qualified Code(s): J69.0 - Pneumonitis due to inhalation of food and vomit Code(s): J18.9 - Pneumonia, unspecified organism Status: Acute Assessment and Plan: continue iv vancomycin and iv rocephin kalebley aspiration pneumonia (12) Seizure: Onset Date: ~03/2020 Code(s): R56.9 - Unspecified convulsions Status: Acute Assessment and Plan: continue iv keppra Subjective Date/time seen: 04/17/20 11:41 Interval history: Storm is a 60-year-old gentleman with history of 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 Pt still has mild cough and SOB, no further GI bleeding. Pt had swallow test failed pt will need PEG tube feeds with pureed for pleasure Review of Systems Review of Systems: All systems reviewed & are unremarkable except as noted in HPI and below Respiratory: Respiratory: Reports chest congestion, Reports cough, Reports excessive phlegm production and Reports dyspnea Exam Narrative: Exam Narrative: Temp Pulse Resp BP Pulse Ox 36.7 C 83 20 154/86 H 98 04/17/20 06:00 04/17/20 06:00 04/17/20 06:00 04/17/20 06:00 04/17/20 10:36 Temp Pulse Resp BP Pulse Ox 37.3 C 105 H 27 H 149/80 H 97 04/15/20 16:00 04/15/20 16:00 04/15/20 16:00 04/15/20 16:00 04/15/20 16:00 Somnolent chronically ill appearing male General: pt wearing 1-2 liters of oxygen RRR chest is BL crackles at ba
[2020-04-17 11:53] VITALS: BMI 26.1
[2020-04-17 13:22] LABS: Glucose Point of Care 105 (65-105)
--- NOTE | 2020-04-17 13:58 | PM.PNGS ---
Progress Note: A&P Assessment and Plan (1) Small bowel obstruction: Code(s): K56.609 - Unspecified intestinal obstruction, unspecified as to partial versus complete obstruction Status: Acute Assessment and Plan: Continues to clinically improve. Exam remains benign, + bowel function. Failed swallow study this morning, therefore he will need to continue feedings through his PEG tube. Okay to slowly start tube feedings per dietitian recommendations. (2) Aspiration pneumonia: Qualifiers: Aspiration pneumonia type: unspecified Laterality: bilateral Lung location: unspecified part of lung Qualified Code(s): J69.0 - Pneumonitis due to inhalation of food and vomit Code(s): J69.0 - Pneumonitis due to inhalation of food and vomit Status: Acute Assessment and Plan: Stable, mgmt per primary (3) UTI (urinary tract infection): Qualifiers: Hematuria presence: without hematuria Urinary tract infection type: site unspecified Qualified Code(s): N39.0 - Urinary tract infection, site not specified Code(s): N39.0 - Urinary tract infection, site not specified Status: Acute Assessment and Plan: Stable, mgmt per primary (4) Septic shock: Code(s): A41.9 - Sepsis, unspecified organism; R65.21 - Severe sepsis with septic shock Status: Acute Assessment and Plan: Resolved Additional Plan Discussed the plan of care with Dr. Narayan. Subjective Subjective Date/Time Seen: 04/17/20 11:20 Interval history: Patient has aphasia. He does say no when I ask if he is having any abdominal pain or nausea. No response when asked about bowel function. Per his nurse, he had a large liquid bowel movement today. Review of Systems Review of Systems: ROS unobtainable: Yes unobtainable due to medical condition Exam Const: General: comfortable, no acute distress, alert and awake Limitations: language barrier (aphasia) GI: Inspection: non-distended and other (LUQ Peg tube clamped) GI Palp: Yes Soft to palpation, No Tenderness to palpation present (GI), No Guarding due to palpation present (GI) and No Rebound tenderness present Auscultation: normal bowel sounds Neuro: Speech: Expressive aphasia present Extrem: General: no clubbing, cyanosis or edema and amputation noted Above the knee: right Psych: Speech and movement: Slowed speech present (Psych) Insight: Limited insight present (Psych) Judgement: Limited judgement present (Psych) Objective Data Vital Signs Vital Signs: Vital Signs - 24 hr 04/16/20 14:00 04/16/20 22:00 04/17/20 06:00 Temperature 98.6 F 98.9 F 98.1 F Pulse Rate 95 97 83 Respiratory Rate 16 20 20 Blood Pressure 150/79 H 158/86 H 154/86 H Pulse Oximetry 96 95 97 04/17/20 10:36 Temperature Pulse Rate Respiratory Rate Blood Pressure Pulse Oximetry 98 Intake/Output Intake/Output: Intake & Output 04/14/20 04/15/20 04/16/20 04/17/20 23:59 23:59 23:59 23:59 Intake Total 3185 2800 2670 1100 Output Total 2945 3750 1250 800 Balance 240 -950 1420 300 Meds/Results Medications: Active Medications Generic Name Dose Route Start Last Admin Trade Name Freq PRN Reason Stop Dose Admin Dextrose 12.5 gm 04/13/20 21:19 Dextrose 50% Syringe IV PUSH PRN PRN Hypoglycemia Protocol Glucagon 1 mg 04/13/20 21:19 Glucagon For Inj IM PRN PRN Hypoglycemia Protocol Glucose 15 gm 04/13/20 21:19 Glutose 15 PO PRN PRN Hypoglycemia Protocol Lactated Ringer's 1,000 mls @ 100 mls/hr 04/13/20 19:30 04/17/20 10:31 Lr - Lactated Ringers Iv IV CONT 100 mls/hr .Q10H SHARRI Administration Dextrose 1,000 mls @ 100 mls/hr 04/13/20 21:19 Dextrose 5% 1,000 Ml IVPB PRN PRN Hypoglycemia Protocol Cefepime HCl 2 gm in 50 mls @ 100 mls/hr 04/14/20 22:00 04/16/20 22:30 Maxipime 2 Gm/D5w 50 Ml IVPB Infused Q24H SHARRI Infusion Metronidazole 500 mg in
[2020-04-17 14:00] VITALS: BP 170/84; PULSE 91; RESP 18; TEMP 37; O2SAT 93
[2020-04-17 18:34] LABS: Glucose Point of Care 92 (65-105)
[2020-04-17 19:14] LABS: Vancomycin Trough 10.2 ug/mL (10.0-20.0)
[2020-04-17 22:00] VITALS: BP 151/75; PULSE 87; RESP 20; TEMP 37.1; O2SAT 91
[2020-04-18 00:37] LABS: Glucose Point of Care 109 (65-105)
[2020-04-18] MEDS: LACTATED RINGERS 1,000 ML 100 ML IV CONT ×3 (01:03→20:27)
[2020-04-18] MEDS: metroNIDAZOLE 500 MG/ISO 100ML 500 MG/100 ML BAG 100 MG IVPB ×2 (04:31→12:55)
[2020-04-18 05:29] LABS: Osmolality, Urine 361 mOsm/kg (50-1200)
[2020-04-18 06:00] VITALS: BP 145/77; PULSE 86; RESP 18; TEMP 36.7; O2SAT 96
[2020-04-18 06:20] LABS: Hematocrit 26.6 % (42.0-52.0); Hemoglobin 8.4 g/dL (14.0-18.0); Mean Corpuscular HGB Conc 31.6 g/dl (32-36); Mean Corpuscular Hemoglobin 26.7 pg (26-34); Mean Corpuscular Volume 84.4 fl (80-100); Mean Platelet Volume 10.2 fl (7.4-10.4); Platelet Count Result 501 k/mm3 (150-375); Red Blood Count 3.15 M/mm3 (4.6-6.20); White Blood Count 13.6 K/mm3 (4.5-10.0)
[2020-04-18 06:44] LABS: Glucose Point of Care 105 (65-105)
[2020-04-18 07:22] LABS: Anion Gap 10.3 mmol/L (7-16); Blood Urea Nitrogen 21 mg/dL (9-20); Calcium 8.4 mg/dL (8.4-10.2); Carbon Dioxide 22 mmol/L (22-30); Chloride 108 mmol/L (98-107); Estimated Glomerular Filt Rate > 60; Glucose 115 mg/dL (75-110); Potassium 3.3 mmol/L (3.4-5.0); Sodium 137 mmol/L (137-145)
[2020-04-18] MEDS: levETIRAcetam 500MG/NACL 100ML 500 MG/100 ML BAG 400 MG IVPB ×2 (08:46→20:28)
[2020-04-18] MEDS: PANTOPRAZOLE SODIUM IV 40 MG VIAL IV PUSH ×2 (08:47→20:29)
[2020-04-18 14:00] VITALS: BP 155/83; PULSE 92; RESP 16; TEMP 36.7; O2SAT 98
--- NOTE | 2020-04-18 14:29 | PM.IMPN ---
Progress Note: A&P Assessment and Plan (1) Septic shock: Code(s): A41.9 - Sepsis, unspecified organism; R65.21 - Severe sepsis with septic shock Status: Resolved Assessment and Plan: pt is dnr pt prognosis in guarded with all his medical conditions and dense stroke (2) Chronic kidney disease, stage 3: Code(s): N18.3 - Chronic kidney disease, stage 3 (moderate) Status: Acute Assessment and Plan: creat is 1 (3) Type 2 diabetes mellitus: Code(s): E11.9 - Type 2 diabetes mellitus without complications Status: Chronic Assessment and Plan: accuchecks, SSI (4) Bacteriuria with pyuria: Code(s): R82.71 - Bacteriuria; R82.81 - Pyuria Status: Acute Assessment and Plan: continue iv fluids (5) C. difficile diarrhea: Onset Date: ~03/2020 Code(s): A04.72 - Enterocolitis due to Clostridium difficile, not specified as recurrent Status: Acute Assessment and Plan: pt started PEG feeds having alot of diarrhea continue to monitor pt may need cdiff testing if diarrhea continues (6) Essential hypertension: Code(s): I10 - Essential (primary) hypertension Status: Chronic Assessment and Plan: BP 154/ 86 (7) Electrolyte abnormality: Code(s): E87.8 - Other disorders of electrolyte and fluid balance, not elsewhere classified Status: Acute Assessment and Plan: continue to monitor potassium is 3.5, creat is 1.0 (8) Coffee ground emesis: Code(s): K92.0 - Hematemesis Status: Acute Assessment and Plan: continue iv protonix, continue to monitor hb/ hct, hold any anticoagulation (9) Peritracheal mass: Code(s): R22.2 - Localized swelling, mass and lump, trunk Status: Acute (10) Abdominal hematoma: Onset Date: ~03/2020 Code(s): S30.1XXA - Contusion of abdominal wall, initial encounter Status: Acute Assessment and Plan: hold anticoagulation (11) Pneumonia: Qualifiers: Pneumonia type: aspiration pneumonia Aspiration pneumonia type: due to vomit Laterality: unspecified laterality Lung location: unspecified part of lung Qualified Code(s): J69.0 - Pneumonitis due to inhalation of food and vomit Code(s): J18.9 - Pneumonia, unspecified organism Status: Acute Assessment and Plan: cut back to iv maxipime only (12) Seizure: Onset Date: ~03/2020 Code(s): R56.9 - Unspecified convulsions Status: Acute Assessment and Plan: continue iv keppra Subjective Date/time seen: 04/18/20 14:29 Interval history: Storm is a 60-year-old gentleman with history of 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 Pt still has mild cough and SOB, no further GI bleeding. PEG tube feeds with pureed for pleasure. Pt having severe diarrhea today. Cough is better Review of Systems Review of Systems: All systems reviewed & are unremarkable except as noted in HPI and below Exam Narrative: Exam Narrative: Temp Pulse Resp BP Pulse Ox 36.7 C 83 20 154/86 H 98 04/17/20 06:00 04/17/20 06:00 04/17/20 06:00 04/17/20 06:00 04/17/20 10:36 Temp Pulse Resp BP Pulse Ox 37.3 C 105 H 27 H 149/80 H 97 04/15/20 16:00 04/15/20 16:00 04/15/20 16:00 04/15/20 16:00 04/15/20 16:00 Somnolent chronically ill appearing male General: pt wearing 1-2 liters of oxygen RRR chest is BL crackles at bases Abdo PEG tube in situ legs non edematous Neuro chronically ill moving all 4 limbs some speech
--- NOTE | 2020-04-18 15:38 | PCDIET ---
Nutrition Follow-Up Complete: Swallowing Difficulties as related to dysphasia as evidenced by failed MBS Meet estimated nutritional needs. Goal: Goal met. Continue goal. Pt current nutrition is Glucerna 1.2 at 70ml/hr. Nutrition recommendation: Agree Last recorded weight is 60.8 kg (up from admit wt of 58.6kg) Bowel Motility: Yesterday BM+ Labs Reviewed:Glucose 115, K 3.3, BUN 21, WBC 13.6 Meds Noted: Insulin, LR, keppra, flagyl, protonix, vancomycin Additional Notes: Pt at goal with EN providing 1848 kcals, meeting 100% of nutrition needs. Wt up. Pt denies GI pain. We will continue to follow to assess EN tolerance every Tuesday and Tuesday.
[2020-04-18 17:49] LABS: Glucose Point of Care 60 (65-105)
[2020-04-18] MEDS: DEXTROSE 50% 25 GM/50 ML SYRINGE IV PUSH (17:53)
[2020-04-18 19:07] LABS: Glucose Point of Care 168 (65-105)
[2020-04-18 20:42] LABS: SARS-CoV-2 RNA PCR Negative
[2020-04-18 22:23] VITALS: BP 161/87; PULSE 85; RESP 16; TEMP 36.5; O2SAT 97
[2020-04-19 00:44] LABS: Glucose Point of Care 91 (65-105)
[2020-04-19 01:29] LABS: Glucose Point of Care 113 (65-105)
--- NOTE | 2020-04-19 04:02 | PC.NURSE ---
Banatrol not given during day shift due to dietary not bringing to floor. Contacted Denisse head of housekeeping, and Sheridan Sanabria, house sup, for Banatrol doses and both were unable to find it.
[2020-04-19 05:59] LABS: Glucose Point of Care 89 (65-105)
[2020-04-19 06:00] VITALS: BP 149/83; PULSE 89; RESP 16; TEMP 36.7; O2SAT 98
[2020-04-19 06:34] LABS: Hematocrit 26.7 % (42.0-52.0); Hemoglobin 8.3 g/dL (14.0-18.0); Mean Corpuscular HGB Conc 31.1 g/dl (32-36); Mean Corpuscular Hemoglobin 26.1 pg (26-34); Platelet Count Result 475 k/mm3 (150-375); Red Blood Count 3.18 M/mm3 (4.6-6.20); White Blood Count 15.6 K/mm3 (4.5-10.0)
[2020-04-19 06:51] LABS: Anion Gap 9.5 mmol/L (7-16); Blood Urea Nitrogen 17 mg/dL (9-20); Calcium 8.1 mg/dL (8.4-10.2); Carbon Dioxide 25 mmol/L (22-30); Chloride 106 mmol/L (98-107); Estimated Glomerular Filt Rate > 60; Glucose 107 mg/dL (75-110); Potassium 3.5 mmol/L (3.4-5.0); Sodium 137 mmol/L (137-145)
[2020-04-19 08:19] LABS: Glucose Point of Care 99 (65-105)
[2020-04-19] MEDS: levETIRAcetam 500MG/NACL 100ML 500 MG/100 ML BAG 400 MG IVPB ×2 (09:06→20:34)
[2020-04-19] MEDS: LACTATED RINGERS 1,000 ML 100 ML IV CONT (09:06)
[2020-04-19] MEDS: PANTOPRAZOLE SODIUM IV 40 MG VIAL IV PUSH ×2 (09:09→20:34)
[2020-04-19 12:05] LABS: Glucose Point of Care 99 (65-105)
--- NOTE | 2020-04-19 12:09 | PM.IMPN ---
Progress Note: A&P Assessment and Plan (1) Septic shock: Code(s): A41.9 - Sepsis, unspecified organism; R65.21 - Severe sepsis with septic shock Status: Resolved Assessment and Plan: pt is dnr pt prognosis in guarded with all his medical conditions and dense stroke (2) Chronic kidney disease, stage 3: Code(s): N18.3 - Chronic kidney disease, stage 3 (moderate) Status: Acute Assessment and Plan: creat is 0.9 (3) Type 2 diabetes mellitus: Code(s): E11.9 - Type 2 diabetes mellitus without complications Status: Chronic Assessment and Plan: accuchecks, SSI (4) Bacteriuria with pyuria: Code(s): R82.71 - Bacteriuria; R82.81 - Pyuria Status: Acute Assessment and Plan: continue iv fluids (5) C. difficile diarrhea: Onset Date: ~03/2020 Code(s): A04.72 - Enterocolitis due to Clostridium difficile, not specified as recurrent Status: Acute Assessment and Plan: pt started PEG feeds having alot of diarrhea continue to monitor pt may need cdiff testing if diarrhea continues, stop fluids and see if it helps diarrhea (6) Essential hypertension: Code(s): I10 - Essential (primary) hypertension Status: Chronic Assessment and Plan: BP 154/ 86 (7) Electrolyte abnormality: Code(s): E87.8 - Other disorders of electrolyte and fluid balance, not elsewhere classified Status: Acute Assessment and Plan: continue to monitor potassium is 3.5, creat is 1.0 (8) Coffee ground emesis: Code(s): K92.0 - Hematemesis Status: Acute Assessment and Plan: continue iv protonix, continue to monitor hb/ hct, hold any anticoagulation (9) Peritracheal mass: Code(s): R22.2 - Localized swelling, mass and lump, trunk Status: Acute (10) Abdominal hematoma: Onset Date: ~03/2020 Code(s): S30.1XXA - Contusion of abdominal wall, initial encounter Status: Acute Assessment and Plan: hold anticoagulation (11) Pneumonia: Qualifiers: Pneumonia type: aspiration pneumonia Aspiration pneumonia type: due to vomit Laterality: unspecified laterality Lung location: unspecified part of lung Qualified Code(s): J69.0 - Pneumonitis due to inhalation of food and vomit Code(s): J18.9 - Pneumonia, unspecified organism Status: Acute Assessment and Plan: cut back to iv maxipime only (12) Seizure: Onset Date: ~03/2020 Code(s): R56.9 - Unspecified convulsions Status: Acute Assessment and Plan: continue iv keppra Subjective Date/time seen: 04/19/20 12:09 Interval history: Storm is a 60-year-old gentleman with history of 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 Pt still has mild cough and SOB, no further GI bleeding. PEG tube feeds with pureed for pleasure. Diarrhea is better. Cough is better. Complains of pain all over other. Review of Systems Review of Systems: All systems reviewed & are unremarkable except as noted in HPI and below Exam Narrative: Exam Narrative: Temp Pulse Resp BP Pulse Ox 36.7 C 83 20 154/86 H 98 04/17/20 06:00 04/17/20 06:00 04/17/20 06:00 04/17/20 06:00 04/17/20 10:36 Temp Pulse Resp BP Pulse Ox 37.3 C 105 H 27 H 149/80 H 97 04/15/20 16:00 04/15/20 16:00 04/15/20 16:00 04/15/20 16:00 04/15/20 16:00 Somnolent chronically ill appearing male General: more comfortable and alert RRR chest is BL crackles at bases Abdo PEG tube in situ legs non edemat
[2020-04-19 14:00] VITALS: BP 138/74; PULSE 89; RESP 16; TEMP 36.4; O2SAT 100
[2020-04-19 18:28] LABS: Glucose Point of Care 114 (65-105)
[2020-04-19 22:00] VITALS: BP 163/83; PULSE 96; RESP 16; TEMP 37; O2SAT 93
[2020-04-19 22:34] LABS: Glucose Point of Care 107 (65-105)
[2020-04-20 05:50] LABS: Glucose Point of Care 106 (65-105)
[2020-04-20 06:00] VITALS: BP 157/90; PULSE 96; RESP 16; TEMP 36.8; O2SAT 93
[2020-04-20] MEDS: levETIRAcetam 500MG/NACL 100ML 500 MG/100 ML BAG 400 MG IVPB ×2 (08:34→21:15)
[2020-04-20] MEDS: PANTOPRAZOLE SODIUM IV 40 MG VIAL IV PUSH ×2 (08:34→21:15)
--- NOTE | 2020-04-20 08:54 | PM.IMPN ---
Progress Note: A&P Assessment and Plan (1) Septic shock: Code(s): A41.9 - Sepsis, unspecified organism; R65.21 - Severe sepsis with septic shock Status: Resolved Assessment and Plan: pt is dnr pt prognosis in guarded with all his medical conditions and dense stroke (2) Chronic kidney disease, stage 3: Code(s): N18.3 - Chronic kidney disease, stage 3 (moderate) Status: Acute Assessment and Plan: creat is 0.9 (3) Type 2 diabetes mellitus: Code(s): E11.9 - Type 2 diabetes mellitus without complications Status: Chronic Assessment and Plan: accuchecks, SSI (4) Bacteriuria with pyuria: Code(s): R82.71 - Bacteriuria; R82.81 - Pyuria Status: Acute Assessment and Plan: stop fluids RPT UA (5) C. difficile diarrhea: Onset Date: ~03/2020 Code(s): A04.72 - Enterocolitis due to Clostridium difficile, not specified as recurrent Status: Acute Assessment and Plan: pt started PEG feeds having alot of diarrhea continue to monitor pt may need cdiff testing if diarrhea continues, diarrhea better off fluids (6) Essential hypertension: Code(s): I10 - Essential (primary) hypertension Status: Chronic Assessment and Plan: BP 154/ 86 (7) Electrolyte abnormality: Code(s): E87.8 - Other disorders of electrolyte and fluid balance, not elsewhere classified Status: Acute Assessment and Plan: continue to monitor potassium is 3.5, creat is 0.9 (8) Coffee ground emesis: Code(s): K92.0 - Hematemesis Status: Acute Assessment and Plan: continue iv protonix, continue to monitor hb/ hct, hold any anticoagulation (9) Peritracheal mass: Code(s): R22.2 - Localized swelling, mass and lump, trunk Status: Acute Assessment and Plan: Consult pulmology looks new on cxr (10) Abdominal hematoma: Onset Date: ~03/2020 Code(s): S30.1XXA - Contusion of abdominal wall, initial encounter Status: Acute Assessment and Plan: hold anticoagulation (11) Pneumonia: Qualifiers: Pneumonia type: aspiration pneumonia Aspiration pneumonia type: due to vomit Laterality: unspecified laterality Lung location: unspecified part of lung Qualified Code(s): J69.0 - Pneumonitis due to inhalation of food and vomit Code(s): J18.9 - Pneumonia, unspecified organism Status: Acute Assessment and Plan: cut back to iv maxipime only (12) Seizure: Onset Date: ~03/2020 Code(s): R56.9 - Unspecified convulsions Status: Acute Assessment and Plan: continue iv keppra Subjective Date/time seen: 04/20/20 08:54 Interval history: Storm is a 60-year-old gentleman with history of 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 Pt still has mild cough and SOB, no further GI bleeding. PEG tube feeds with pureed for pleasure. Diarrhea is better. Cough is better. Complains of pain all over other. CXR shows, Patchy bilateral airspace disease, compatible with pneumonia. 2: Small right pleural effusion versus pleural thickening. 3: Right paratracheal masslike density. I will consult pulmology as this looks new Review of Systems Cardiovascular: Cardiovascular: Denies chest pain and Reports dyspnea Respiratory: Respiratory: Reports chest congestion and Reports cough Gastrointestinal: Gastrointestinal: Denies diarrhea Exam Narrative: Exam Narrative: Temp Pulse Resp BP Pulse Ox 36.7 C 83 20 154/86 H 98 04/17/20 06:00 04/17/20 06:00 04/17/20 06:00 04/17/20 06:00 04/17/20 10:36 Temp Pulse Resp
[2020-04-20 11:58] LABS: Add Urine Microscopic? YES; Appearance Urine Cloudy (Clear); Bacteria Urine Trace /hpf; Bilirubin Urine Negative (Negative); Blood Urine Negative (Negative); Calcium Oxalate Crystals Urine Present /hpf; Color Urine Yellow (Yellow); Glucose Urine UA 1+ mg/dL (Negative); Ketones Urine Negative (Negative); Leukocyte Esterase Ur 3+ LEU/UL (NEGATIVE); Mucus Urine Rare /lpf; Nitrate Urine Negative (Negative); Protein Urine 2+ mg/dL (Negative); Specific Grav Ur 1.018 (1.001-1.035); Squamous Epithelial Cell Urine Rare /hpf (Few); Urobilinogen Urine Negative mg/dL (<2.0); WBC Urine >75 /hpf (0-3)
[2020-04-20 12:12] LABS: Glucose Point of Care 104 (65-105)
[2020-04-20 14:00] VITALS: BP 155/82; PULSE 92; RESP 18; TEMP 36.8; O2SAT 94
[2020-04-20 18:09] LABS: Glucose Point of Care 107 (65-105)
--- NOTE | 2020-04-20 21:08 | PM.CNPUL ---
Assessment and Plan Assessment and plan (1) Aspiration pneumonia: Qualifiers: Aspiration pneumonia type: unspecified Laterality: bilateral Lung location: unspecified part of lung Qualified Code(s): J69.0 - Pneumonitis due to inhalation of food and vomit Code(s): J69.0 - Pneumonitis due to inhalation of food and vomit Status: Acute (2) Dementia: Code(s): F03.90 - Unspecified dementia without behavioral disturbance Status: Acute (3) Pneumonia: Onset Date: Unknown Qualifiers: Laterality: bilateral Lung location: unspecified part of lung Pneumonia type: due to unspecified organism Qualified Code(s): J18.9 - Pneumonia, unspecified organism Code(s): J18.9 - Pneumonia, unspecified organism Status: Acute (4) Lung mass: Code(s): R91.8 - Other nonspecific abnormal finding of lung field Status: Acute Assessment and Plan: Paratracheal mass is about 2.5 cm, and can be evaluated with a PET scan after discharge, and if he needs to have a biopsy, he can be referred to interventional pulmonayr . This mass is not in a location that can be accessed by regular bronchoscopy. History of Present Illness History of Present Illness Consult date: 04/21/20 Requesting physician: Karen Middleton MD Reason for consult: lung mass (right paratracheal mass) Chief complaint: Coffee-ground emesis and possible aspiration. Narrative: This 60 yo man was admitted with a coffee ground emesis, aspiration pneumonia, has a 2.5 cm mass along the right upper trachea. This location is not amenable to standard bronchoscopy. He will need an interventional heat treater apprentice to get to this lateral target. He is not a great candidate for having a work up for a thoracic mass. He might be able to have a PET scan as an out-patinet, and see if this is something that is metabolically active. Review of Systems Review of Systems: All systems reviewed & are unremarkable except as noted in HPI and below PMFSH Past Medical History Medical History Aphasia Benign prostate hyperplasia C. difficile diarrhea (~03/2020) Cerebral vascular accident (~06/2019) With resultant, dense right hemiplegia and expressive aphasia. Cholelithiases Chronic kidney disease, stage 3 Baseline creatinine appears to be between 1.3 and 1.50. Dysphagia Status post G-tube placement. Essential hypertension Iron deficiency anemia Peptic ulcer disease (~03/2020) Gastric and duodenal ulcers on EGD. Peripheral vascular disease Status post right [id number] amputation. Seizure (~03/2020) Type 2 diabetes mellitus Hemoglobin A1c was 7.3 on 03/19/2020. Surgical History Surgical History History of abdominal aortic aneurysm (AAA) repair History of gastrostomy tube placement (~03/2020) History of incision and drainage (~2018) Perineal abscess. History of loop recorder History of right above knee amputation (~08/2019) Family History Family History Mother Diabetes mellitus Social History Social History Social History: The patient is a resident of [facility]. He will get up to the wheelchair on occasion but it sounds like he is mainly bed bound. As of 03/19/2020, he is on regular diet otherwise is full care. Before his stroke, he was a smoker and a heavy drinker. His sister, Latoya Gimenez, is his healthcare power of real estate attorney. She wishes him to be a DNR. Sexual Orientation (if Verbalized by the Patient): Straight or Heterosexual Spiritual care concerns: No Meds Home Medications and Allergies Home Medications Medication Instructions Recorded Confirmed Type acetaminophen [Tylenol Extra 500 mg PO Q6H PRN 03/19/20 04/13/20 History Strength] amlodipine 10 mg
[2020-04-20 22:00] VITALS: BP 159/81; PULSE 90; RESP 22; TEMP 36.9; O2SAT 95
[2020-04-21 00:33] LABS: Glucose Point of Care 111 (65-105)
[2020-04-21 06:15] LABS: Glucose Point of Care 106 (65-105)
[2020-04-21 06:26] LABS: Hemoglobin 9.2 g/dL (14.0-18.0); Mean Corpuscular HGB Conc 31.7 g/dl (32-36); Mean Corpuscular Hemoglobin 26.9 pg (26-34); Mean Corpuscular Volume 84.8 fl (80-100); Mean Platelet Volume 10.3 fl (7.4-10.4); Platelet Count Result 495 k/mm3 (150-375); Red Blood Count 3.42 M/mm3 (4.6-6.20); Red Cell Distribution Width 17.7 % (11.5-14.5); White Blood Count 12.5 K/mm3 (4.5-10.0)
[2020-04-21 06:35] VITALS: BP 159/81; PULSE 90; RESP 18; TEMP 36.9; O2SAT 95
[2020-04-21 06:46] LABS: Anion Gap 9.6 mmol/L (7-16); Blood Urea Nitrogen 22 mg/dL (9-20); Calcium 8.5 mg/dL (8.4-10.2); Carbon Dioxide 28 mmol/L (22-30); Chloride 105 mmol/L (98-107); Estimated Glomerular Filt Rate > 60; Glucose 110 mg/dL (75-110); Potassium 4.6 mmol/L (3.4-5.0); Sodium 138 mmol/L (137-145)
[2020-04-21 08:30] LABS: Glucose Point of Care 112 (65-105)
[2020-04-21] MEDS: PANTOPRAZOLE SODIUM IV 40 MG VIAL IV PUSH ×2 (09:05→21:09)
[2020-04-21] MEDS: levETIRAcetam 500MG/NACL 100ML 500 MG/100 ML BAG 400 MG IVPB (09:05)
[2020-04-21] MEDS: WATER FOR IRRIGATION, STERILE 1,000 ML BOTTLE 1000 ML (09:22)
[2020-04-21 12:30] LABS: Glucose Point of Care 110 (65-105)
[2020-04-21 14:00] VITALS: BP 148/89; PULSE 92; RESP 18; TEMP 36.9; O2SAT 94
--- NOTE | 2020-04-21 16:48 | PM.PNPUL ---
Progress Note: A&P Assessment and Plan (1) Lung mass: Code(s): R91.8 - Other nonspecific abnormal finding of lung field Status: Acute Assessment and Plan: Paratracheal mass is about 2.5 cm, and can be evaluated with a PET scan after discharge, and if he needs to have a biopsy, he can be referred to interventional pulmonary . This mass is not in a location that can be accessed by regular bronchoscopy. (2) Aspiration pneumonia: Qualifiers: Aspiration pneumonia type: unspecified Laterality: bilateral Lung location: unspecified part of lung Qualified Code(s): J69.0 - Pneumonitis due to inhalation of food and vomit Code(s): J69.0 - Pneumonitis due to inhalation of food and vomit Status: Acute Assessment and Plan: He has a peg-tube and receives tube feedings, and apparently also takes some pureed foods by mouth, which may be causing his aspiration. Most of his intake is by tube feeds. He may be aspirating repeatedly. WBC 12.5 above normal. Has patchy infiltrates on imaging. (3) Dementia: Qualifiers: Dementia type: unspecified type Code(s): F03.90 - Unspecified dementia without behavioral disturbance Status: Acute Assessment and Plan: chronic baseline problem. Subjective Date/time seen: 04/21/20 16:48 Interval history: This 60-year-old man is seen in follow up for a paratracheal mass. He has a history of a stroke with R hemiparesis, expressive aphasia, CHF, HTN, HTN, DM. Had coffee-ground emesis and possible aspiration. his cough is better, and he is on room air, denies being short of breath. He is getting tube feeds. CXR shows patchy bilateral airspace disease compatible with pneumonia. Review of Systems Review of Systems: All systems reviewed & are unremarkable except as noted in HPI and below Exam Const: General: comfortable and no acute distress Eyes: General: appearance normal, both eyes and all related structures Neck: Lymphatic: lymphadenopathy not noted Resp: Auscultation: rhonchi (scattered rhonchi in bases, cannot clear airway easily) and diminished lung sounds Cardio: Rate: regular rate Rhythm: regular rhythm Heart sounds: no gallops and no murmurs GI: Other: has a G-tube and is getting tube feeds Neuro: General: No gait normal (appears bed bound) Extrem: Right lower extremity: full ROM Psych: Mental Status: mental status grossly normal (this is really hard to tell; limited speech; he can say simple words. Nods.) Objective Data Vital Signs Vital Signs: Vital Signs - 24 hr 04/20/20 22:00 04/21/20 06:35 04/21/20 14:00 Temperature 36.9 C 36.9 C 36.9 C Pulse Rate 90 90 92 Respiratory Rate 22 H 18 18 Blood Pressure 159/81 H 159/81 H 148/89 H Pulse Oximetry 95 95 94 Intake/Output Intake/Output: Intake & Output 04/18/20 04/19/20 04/20/20 04/21/20 23:59 23:59 23:59 23:59 Intake Total 4936 1943 174 9072 Output Total 1350 1125 1000 700 Balance 3586 863 -127 1286 Meds/Results Medications: Active Medications Generic Name Dose Route Start Last Admin Trade Name Freq PRN Reason Stop Dose Admin Hydrocodone Bitart/Acetaminophen 1 tab 04/19/20 12:29 04/21/20 09:14 Britt 5-325 Mg FEED TUBE 1 tab Q4H PRN Administration Pain Rated 4-6 Dextrose 12.5 gm 04/13/20 21:19 04/18/20 17:53 Dextrose 50% Syringe IV PUSH 12.5 gm PRN PRN Administration Hypoglycemia Protocol Glucagon 1 mg 04/13/20 21:19 Glucagon For Inj IM PRN PRN Hypoglycemia Protocol Glucose 15 gm 04/13/20 21:19 Glutose 15 PO PRN PRN Hypoglycemia Protocol Dextrose 1,000 mls @ 100 mls/hr 04/13/20 21:19 Dextrose 5% 1,000 Ml IVPB PRN PRN Hypoglycemia Protocol Cefepime HCl 2 gm in 50 mls @ 100 mls/hr 04/14/20 22:00 04/20/20 21:58 Maxipime 2 Gm/D5w 50 Ml IVPB 100 mls/hr Q24H SHARRI Administration Levetiracetam 500 mg in 100 mls @ 400 mls/hr 03/20
--- NOTE | 2020-04-21 16:51 | PM.IMPN ---
Progress Note: A&P Assessment and Plan (1) Severe sepsis: Code(s): A41.9 - Sepsis, unspecified organism; R65.20 - Severe sepsis without septic shock Status: Acute Assessment and Plan: Patient with severe sepsis due to hypovolemia secondary to coffee-ground emesis, diarrhea, and pneumonia. Symptoms much improved. (2) Small bowel obstruction: Code(s): K56.609 - Unspecified intestinal obstruction, unspecified as to partial versus complete obstruction Status: Acute Assessment and Plan: CT on admission showing small bowel obstruction with apparent transition point at a small-bowel anastomosis near the umbilicus. NG tube was placed and bowel rest ordered. Symptoms improved with supportive care. TF started and toelrating. (3) Chronic kidney disease, stage 3: Code(s): N18.3 - Chronic kidney disease, stage 3 (moderate) Status: Acute Assessment and Plan: Creatinine stable at 0.9. Continue to monitor (4) Type 2 diabetes mellitus: Code(s): E11.9 - Type 2 diabetes mellitus without complications Status: Chronic Assessment and Plan: A1c 7.3 in March. The patient's blood glucose was reviewed on 04/21/20. Glucose remains well controlled. Continue AccuCheks covering with sliding scale. Hypoglycemia protocol available as needed. (5) Bacteriuria with pyuria: Code(s): R82.71 - Bacteriuria; R82.81 - Pyuria Status: Acute Assessment and Plan: UCx noted with >3 organisms each >10K so probably colonization. BCx Negative. (6) C. difficile diarrhea: Onset Date: ~03/2020 Code(s): A04.72 - Enterocolitis due to Clostridium difficile, not specified as recurrent Status: Acute Assessment and Plan: Pt started back on PEG feeding. He had 1 BM listed yesterday. COntinue to follow. (7) Essential hypertension: Code(s): I10 - Essential (primary) hypertension Status: Chronic Assessment and Plan: Patient's blood pressure was reviewed on 04/21/20. Blood pressure remains well controlled. Will continue To monitor. (8) Electrolyte abnormality: Code(s): E87.8 - Other disorders of electrolyte and fluid balance, not elsewhere classified Status: Acute Assessment and Plan: Na 125 on admission but normal now. Potassium elevated but normal now. Continue to monitor (9) Coffee ground emesis: Code(s): K92.0 - Hematemesis Status: Acute Assessment and Plan: Related to the pSBO. Hgb 10 on admission. Hgb dropped to 7.5 and 1U PRBC given. Hgb has since remained stable in the 8-9 range. Continue IV protonix. Continue to hold anticoagulation. Continue to monitor Hgb. (10) Peritracheal mass: Code(s): R22.2 - Localized swelling, mass and lump, trunk Status: Acute Assessment and Plan: CT scan on admission showing a 3.3 x 2.9 cm mass of the right upper mediastinum corresponding to the chest radiographic finding in question. May have been present at last admission by CXR. Left axillary lymph nodes measure up to 11 mm also noted. Pulmonary following. Plan for PET scan after discharge. (11) Abdominal hematoma: Onset Date: ~03/2020 Code(s): S30.1XXA - Contusion of abdominal wall, initial encounter Status: Acute Assessment and Plan: Relted to GTube placement. No change in size and appears to be re-organizing. Anticoagulation on hold. (12) Pneumonia: Qualifiers: Aspiration pneumonia type: due to vomit Laterality: unspecified laterality Lung location: unspecified part of lung Pneumonia type: aspiration pneumonia Qualified Code(s): J69.0 - Pneumonitis due to inhalation of food and vomit Code(s): J18.9 - Pneumonia, unspecified organism Status: Acute Assessment and Plan: Stable. No fevers. Currently on room air. WBC down to 12K. Continue Cefepime. (13) Seizure:
[2020-04-21 17:42] LABS: Glucose Point of Care 108 (65-105)
[2020-04-21 21:04] VITALS: BP 159/84; PULSE 98
[2020-04-21 21:09] VITALS: PULSE 98
[2020-04-21] MEDS: levETIRAcetam ORAL SOL 500 MG/5 ML UDC FEED TUBE (21:09)
[2020-04-21] MEDS: METOPROLOL TARTRATE 50 MG TAB FEED TUBE (21:09)
[2020-04-21] MEDS: ATORVASTATIN 40 MG TABLET 80 MG FEED TUBE (21:09)
[2020-04-21 22:00] VITALS: BP 160/84; PULSE 98; RESP 18; TEMP 36.9; O2SAT 98
[2020-04-22 00:15] LABS: Glucose Point of Care 99 (65-105)
[2020-04-22 05:33] LABS: Glucose Point of Care 106 (65-105)
[2020-04-22 06:00] VITALS: BP 131/73; PULSE 98; RESP 20; TEMP 37; O2SAT 96
[2020-04-22 08:58] VITALS: PULSE 70
[2020-04-22] MEDS: METOPROLOL TARTRATE 50 MG TAB FEED TUBE ×2 (08:58→21:04)
[2020-04-22] MEDS: ASPIRIN 81 MG CHEWABLE TABLET FEED TUBE (08:58)
[2020-04-22] MEDS: amLODIPine BESYLATE 5 MG TABLET 10 MG FEED TUBE (08:58)
[2020-04-22] MEDS: PANTOPRAZOLE SODIUM IV 40 MG VIAL IV PUSH (08:59)
--- NOTE | 2020-04-22 10:46 | PCNFU ---
Nutrition Follow-Up Complete: Swallowing Difficulties as related to dysphagia as evidenced by failed MBS Goal: Meet estimated nutritional needs. Patient has met current goal. No new goal. Pt current nutrition is Glucerna 1.2 at 70 ml/hr. Nutrition recommendation: Agree Last recorded weight is 60 kg. Bowel Motility:+BM loose Labs Reviewed: No new labs to report. Meds Noted:Lopressor,Keppra, Protonix Additional Notes: Patient seen today for tube feeding follow up. He is tolerating tube feedings at 70 ml/hr which is providing 1848 kcals and 85 gms protein. Meeting 100% of caloric needs. Patient also receiving Banatrol TID via g tube for loose stools. Monitoring: every Tuesday and Tuesday.
[2020-04-22] MEDS: levETIRAcetam ORAL SOL 500 MG/5 ML UDC FEED TUBE ×2 (10:47→21:04)
[2020-04-22 12:33] LABS: Glucose Point of Care 100 (65-105)
[2020-04-22 14:00] VITALS: BP 132/77; PULSE 93; RESP 18; TEMP 36.8; O2SAT 95
[2020-04-22 17:34] LABS: Glucose Point of Care 113 (65-105)
--- NOTE | 2020-04-22 18:10 | PM.IMPN ---
Progress Note: A&P Assessment and Plan (1) Severe sepsis: Code(s): A41.9 - Sepsis, unspecified organism; R65.20 - Severe sepsis without septic shock Status: Acute Assessment and Plan: Patient with severe sepsis due to hypovolemia secondary to coffee-ground emesis, diarrhea, and pneumonia. Symptoms much improved. WBC better. No fevers. Will stop abx. (2) Small bowel obstruction: Code(s): K56.609 - Unspecified intestinal obstruction, unspecified as to partial versus complete obstruction Status: Acute Assessment and Plan: CT on admission showing small bowel obstruction with apparent transition point at a small-bowel anastomosis near the umbilicus. NG tube was placed and bowel rest ordered. Symptoms improved with supportive care. TF started and toelrating. (3) Chronic kidney disease, stage 3: Code(s): N18.3 - Chronic kidney disease, stage 3 (moderate) Status: Acute Assessment and Plan: Creatinine stable at 0.9. Continue to monitor (4) Type 2 diabetes mellitus: Code(s): E11.9 - Type 2 diabetes mellitus without complications Status: Chronic Assessment and Plan: A1c 7.3 in March. The patient's blood glucose was reviewed on 04/22/20. Glucose remains well controlled. Continue AccuCheks covering with sliding scale. Hypoglycemia protocol available as needed. (5) Bacteriuria with pyuria: Code(s): R82.71 - Bacteriuria; R82.81 - Pyuria Status: Acute Assessment and Plan: UCx noted with >3 organisms each >10K so probably colonization. BCx Negative. (6) C. difficile diarrhea: Onset Date: ~03/2020 Code(s): A04.72 - Enterocolitis due to Clostridium difficile, not specified as recurrent Status: Acute Assessment and Plan: Pt started back on PEG feeding. He had 2 BM listed yesterday and 3 so far today. Continue to follow. (7) Essential hypertension: Code(s): I10 - Essential (primary) hypertension Status: Chronic Assessment and Plan: Patient's blood pressure was reviewed on 04/22/20. Blood pressure elevated at times. Will continue to monitor. (8) Electrolyte abnormality: Code(s): E87.8 - Other disorders of electrolyte and fluid balance, not elsewhere classified Status: Acute Assessment and Plan: Na 125 on admission but normalized. Potassium was elevated but normal now. Continue to monitor periodically (9) Coffee ground emesis: Code(s): K92.0 - Hematemesis Status: Acute Assessment and Plan: Related to the pSBO. Hgb 10 on admission. Hgb dropped to 7.5 and 1U PRBC given. Hgb has since remained stable in the 8-9 range. Continue PPI. Continue to hold anticoagulation. Monitor Hgb periodically. (10) Peritracheal mass: Code(s): R22.2 - Localized swelling, mass and lump, trunk Status: Acute Assessment and Plan: CT scan on admission showing a 3.3 x 2.9 cm mass of the right upper mediastinum corresponding to the chest radiographic finding in question. May have been present at last admission by CXR. Left axillary lymph nodes measure up to 11 mm also noted. Pulmonary following. Plan for PET scan after discharge. (11) Abdominal hematoma: Onset Date: ~03/2020 Code(s): S30.1XXA - Contusion of abdominal wall, initial encounter Status: Acute Assessment and Plan: Related to GTube placement. No change in size by CT scan and appears to be re-organizing. Anticoagulation on hold. (12) Pneumonia: Qualifiers: Aspiration pneumonia type: due to vomit Laterality: unspecified laterality Lung location: unspecified part of lung Pneumonia type: aspiration pneumonia Qualified Code(s): J69.0 - Pneumonitis due to inhalation of food and vomit Code(s): J18.9 - Pneumonia, unspecified organism Status: Acute Assessment and Plan: Stable. No fevers. Currently o
[2020-04-22 21:04] VITALS: PULSE 95
[2020-04-22] MEDS: ATORVASTATIN 40 MG TABLET 80 MG FEED TUBE (21:04)
[2020-04-22 21:10] VITALS: BP 140/67; PULSE 95; RESP 16; TEMP 37; O2SAT 93
[2020-04-23 00:08] LABS: Glucose Point of Care 98 (65-105)
[2020-04-23 00:24] LABS: SARS-CoV-2 RNA PCR Negative
[2020-04-23] MEDS: LANSOPRAZOLE ORAL SUSP 30 MG/10 ML ORAL.SUSP FEED TUBE (05:30)
[2020-04-23 05:59] LABS: Glucose Point of Care 98 (65-105)
[2020-04-23 06:00] VITALS: BP 167/82; PULSE 97; RESP 16; TEMP 37.3; O2SAT 94
[2020-04-23 06:15] LABS: Hematocrit 29.7 % (42.0-52.0); Hemoglobin 9.3 g/dL (14.0-18.0); Mean Corpuscular HGB Conc 31.3 g/dl (32-36); Mean Corpuscular Volume 86.1 fl (80-100); Mean Platelet Volume 9.5 fl (7.4-10.4); Platelet Count Result 451 k/mm3 (150-375); Red Blood Count 3.45 M/mm3 (4.6-6.20); Red Cell Distribution Width 18.4 % (11.5-14.5)
[2020-04-23 06:29] VITALS: BP 145/85
[2020-04-23 06:36] LABS: Anion Gap 12.5 mmol/L (7-16); Blood Urea Nitrogen 24 mg/dL (9-20); Calcium 8.6 mg/dL (8.4-10.2); Carbon Dioxide 27 mmol/L (22-30); Chloride 101 mmol/L (98-107); Estimated Glomerular Filt Rate > 60; Glucose 102 mg/dL (75-110); Potassium 5.5 mmol/L (3.4-5.0); Sodium 135 mmol/L (137-145)
[2020-04-23] MEDS: levETIRAcetam ORAL SOL 500 MG/5 ML UDC FEED TUBE ×2 (09:35→20:38)
[2020-04-23 09:36] VITALS: PULSE 97
[2020-04-23] MEDS: ASPIRIN 81 MG CHEWABLE TABLET FEED TUBE (09:36)
[2020-04-23] MEDS: METOPROLOL TARTRATE 50 MG TAB FEED TUBE ×2 (09:36→20:38)
[2020-04-23] MEDS: FERROUS SULFATE LIQUID 325 MG/7.4 ML ELIXIR FEED TUBE (09:37)
[2020-04-23] MEDS: amLODIPine BESYLATE 5 MG TABLET 10 MG FEED TUBE (09:37)
[2020-04-23 10:10] LABS: Potassium 5.3 mmol/L (3.4-5.0)
--- NOTE | 2020-04-23 12:12 | PM.IMPN ---
Progress Note: A&P Assessment and Plan (1) Severe sepsis: Code(s): A41.9 - Sepsis, unspecified organism; R65.20 - Severe sepsis without septic shock Status: Acute Assessment and Plan: Patient with severe sepsis due to hypovolemia secondary to coffee-ground emesis, diarrhea, and pneumonia. Symptoms much improved. WBC worse today. Consider recurrent aspiration. No fevers. He is off abx now. Will follow WBC for now. (2) Pneumonia: Qualifiers: Aspiration pneumonia type: due to vomit Laterality: unspecified laterality Lung location: unspecified part of lung Pneumonia type: aspiration pneumonia Qualified Code(s): J69.0 - Pneumonitis due to inhalation of food and vomit Code(s): J18.9 - Pneumonia, unspecified organism Status: Acute Assessment and Plan: Stable. No fevers. Currently on room air. WBC back up to 16K. Cefepime was stopped 04/21/20. Concern for possible persistent aspiration. Discussed with family by phone and later in person with santosh dtrs. Discussed the concern that the patietn potentially may be back and forth to the hospital for recurent respirtory difficulty and PNA from his chronic aspiration. Patient has weak cough and very productive sputum requiring the nurses to suction. Discussed end of life issues and hospice. All questions were answered. (3) Small bowel obstruction: Code(s): K56.609 - Unspecified intestinal obstruction, unspecified as to partial versus complete obstruction Status: Acute Assessment and Plan: CT on admission showing small bowel obstruction with apparent transition point at a small-bowel anastomosis near the umbilicus. NG tube was placed and bowel rest ordered. Symptoms improved with supportive care. TF started and tolerating. (4) Chronic kidney disease, stage 3: Code(s): N18.3 - Chronic kidney disease, stage 3 (moderate) Status: Acute Assessment and Plan: Creatinine stable at 0.9. Continue to monitor (5) Type 2 diabetes mellitus: Code(s): E11.9 - Type 2 diabetes mellitus without complications Status: Chronic Assessment and Plan: A1c 7.3 in March. The patient's blood glucose was reviewed on 04/23/20. Glucose remains well controlled. Continue AccuCheks covering with sliding scale. Hypoglycemia protocol available as needed. (6) Bacteriuria with pyuria: Code(s): R82.71 - Bacteriuria; R82.81 - Pyuria Status: Acute Assessment and Plan: UCx noted with >3 organisms each >10K so probably colonization. BCx Negative. (7) C. difficile diarrhea: Onset Date: ~03/2020 Code(s): A04.72 - Enterocolitis due to Clostridium difficile, not specified as recurrent Status: Acute Assessment and Plan: Pt recently treated for CDiff. Patient started back on PEG feeding. He had 2 BM listed yesterday and 1 so far today. Tolerating TF. Stop Banatol. (8) Essential hypertension: Code(s): I10 - Essential (primary) hypertension Status: Chronic Assessment and Plan: Patient's blood pressure was reviewed on 04/23/20. Blood pressure elevated at times but mostly well controlled. Will continue to monitor. (9) Electrolyte abnormality: Code(s): E87.8 - Other disorders of electrolyte and fluid balance, not elsewhere classified Status: Acute Assessment and Plan: Na 125 on admission but normalized. Potassium elevated again today. Could be related to Banatol. Repeat potassium better. Continue to monitor periodically. Stop Banatol. (10) Coffee ground emesis: Code(s): K92.0 - Hematemesis Status: Acute Assessment and Plan: Related to the pSBO. Hgb 10 on admission. Hgb dropped to 7.5 on 04/14/20 and 1U PRBC given. Hgb has since remained stable in the 8-9 range. Continue PPI. Continue to hold anticoagulation. Monitor Hgb periodically. (11) Peritracheal mass: C
[2020-04-23 12:24] LABS: Glucose Point of Care 107 (65-105)
[2020-04-23 14:00] VITALS: BP 120/66; PULSE 64; RESP 16; TEMP 36.7; O2SAT 96
[2020-04-23] MEDS: GABAPENTIN 400 MG CAPSULE XX (18:14)
[2020-04-23 18:36] LABS: Glucose Point of Care 97 (65-105)
[2020-04-23 20:00] VITALS: BP 153/96; PULSE 94; RESP 20; TEMP 36.9; O2SAT 97
[2020-04-23 20:38] VITALS: PULSE 94
[2020-04-23] MEDS: ATORVASTATIN 40 MG TABLET 80 MG FEED TUBE (20:38)
[2020-04-23] MEDS: TAMSULOSIN HCL 0.4 MG CAPSULE 0.8 MG PO (21:01)
--- NOTE | 2020-04-23 22:55 | PM.PNPUL ---
Progress Note: A&P Assessment and Plan (1) Aspiration pneumonia: Qualifiers: Aspiration pneumonia type: unspecified Laterality: bilateral Lung location: unspecified part of lung Qualified Code(s): J69.0 - Pneumonitis due to inhalation of food and vomit Code(s): J69.0 - Pneumonitis due to inhalation of food and vomit Status: Acute Assessment and Plan: He has a peg-tube and receives tube feedings, and apparently also takes some pureed foods by mouth, which may be causing his aspiration. Most of his intake is by tube feeds. He may be aspirating repeatedly. WBC higher 16 above normal. Has patchy infiltrates on imaging. (2) Lung mass: Code(s): R91.8 - Other nonspecific abnormal finding of lung field Status: Acute Assessment and Plan: Paratracheal mass is about 2.5 cm, and can be evaluated with a PET scan after discharge, and if he needs to have a biopsy, he can be referred to interventional pulmonary . This mass is not in a location that can be accessed by regular bronchoscopy. (3) Dementia: Qualifiers: Dementia type: unspecified type Code(s): F03.90 - Unspecified dementia without behavioral disturbance Status: Acute Assessment and Plan: chronic baseline problem. Subjective Date/time seen: 04/23/20 22:55 Interval history: This 60-year-old man is seen in follow up for aspiration pneumonia and a paratracheal mass. He has a history of a stroke with R hemiparesis, expressive aphasia, CHF, HTN, HTN, DM. Had coffee-ground emesis and possible aspiration. His cough is better, and he is on room air, denies being short of breath. He is getting tube feeds. CXR shows patchy bilateral airspace disease compatible with pneumonia. WBc is higher. Review of Systems Review of Systems: All systems reviewed & are unremarkable except as noted in HPI and below Exam Const: General: comfortable and no acute distress Eyes: General: appearance normal, both eyes and all related structures Neck: Lymphatic: lymphadenopathy not noted Resp: Auscultation: rhonchi (scattered rhonchi in bases, cannot clear airway easily) and diminished lung sounds Cardio: Rate: regular rate Rhythm: regular rhythm Heart sounds: no gallops and no murmurs GI: Other: has a G-tube and is getting tube feeds Neuro: General: No gait normal (appears bed bound) Extrem: Right lower extremity: full ROM Psych: Mental Status: mental status grossly normal (this is really hard to tell; limited speech; he can say simple words. Nods.) Objective Data Vital Signs Vital Signs: Vital Signs - 24 hr 04/23/20 06:00 04/23/20 06:29 04/23/20 09:36 Temperature 37.3 C Pulse Rate 97 97 Respiratory Rate 16 Blood Pressure 167/82 H 145/85 H Pulse Oximetry 94 04/23/20 14:00 04/23/20 20:00 04/23/20 20:38 Temperature 36.7 C 36.9 C Pulse Rate 64 94 94 Respiratory Rate 16 20 Blood Pressure 120/66 153/96 H Pulse Oximetry 96 97 Intake/Output Intake/Output: Intake & Output 04/20/20 04/21/20 04/22/20 04/23/20 23:59 23:59 23:59 23:59 Intake Total 923 2036 1290 2101 Output Total 1000 1200 1150 1350 Balance -77 836 140 751 Meds/Results Medications: Active Medications Generic Name Dose Route Start Last Admin Trade Name Freq PRN Reason Stop Dose Admin Acetaminophen 500 mg 04/21/20 17:28 Tylenol Elixir FEED TUBE Q6H PRN PAIN 1-3 Hydrocodone Bitart/Acetaminophen 1 tab 04/19/20 12:29 04/23/20 09:35 [place] 5-325 Mg FEED TUBE 1 tab Q4H PRN Administration Pain Rated 4-6 Amlodipine Besylate 10 mg 04/22/20 09:00 04/23/20 09:37 Norvasc FEED TUBE 10 mg DAILY SHARRI Administration Aspirin 81 mg 04/22/20 09:00 04/23/20 09:36 Aspirin Chewable FEED
[2020-04-24 00:01] VITALS: BP 125/69; PULSE 95; RESP 20; TEMP 37.3; O2SAT 97
[2020-04-24 00:11] LABS: Glucose Point of Care 103 (65-105)
[2020-04-24] MEDS: LANSOPRAZOLE ORAL SUSP 30 MG/10 ML ORAL.SUSP FEED TUBE (05:33)
[2020-04-24 06:00] VITALS: BP 123/56; PULSE 94; RESP 20; TEMP 37.1; O2SAT 99
[2020-04-24 06:30] LABS: Glucose Point of Care 108 (65-105)
[2020-04-24 06:38] LABS: Basophils Percent Auto 0.2 % (0.2-1.2); Eosinophils Absolute Auto 0.3 K/mm3 (0-0.3); Eosinophils Percent Auto 1.6 % (0-4.4); Hematocrit 27.9 % (42.0-52.0); Hemoglobin 8.7 g/dL (14.0-18.0); Immature Granulocyte Absolute 0.12 K/mm3 (0.00-0.031); Immature Granulocyte Percent A 0.7 % (0-0.5); Lymphocytes Absolute Auto 1.41 K/mm3 (0.9-3.2); Lymphocytes Percent Auto 7.6 % (18.3-44.2); Mean Corpuscular HGB Conc 31.2 g/dl (32-36); Mean Corpuscular Hemoglobin 26.8 pg (26-34); Mean Corpuscular Volume 85.8 fl (80-100); Mean Platelet Volume 10.6 fl (7.4-10.4); Monocytes Percent Auto 5.3 % (2.6-8.5); Neutrophils Absolute Auto 15.6 K/mm3 (1.3-6.7); Neutrophils Percent Auto 84.6 % (45.5-73.1); Platelet Count Result 420 k/mm3 (150-375); Red Blood Count 3.25 M/mm3 (4.6-6.20); Red Cell Distribution Width 18.9 % (11.5-14.5); White Blood Count 18.5 K/mm3 (4.5-10.0)
[2020-04-24 06:53] LABS: Anion Gap 12.8 mmol/L (7-16); Blood Urea Nitrogen 29 mg/dL (9-20); Calcium 8.5 mg/dL (8.4-10.2); Carbon Dioxide 27 mmol/L (22-30); Chloride 100 mmol/L (98-107); Estimated Glomerular Filt Rate > 60; Glucose 105 mg/dL (75-110); Potassium 5.8 mmol/L (3.4-5.0); Sodium 134 mmol/L (137-145)
[2020-04-24] MEDS: SODIUM POLYSTYRENE SULFONONATE 15 GM/60 ML BTL FEED TUBE (08:54)
[2020-04-24 08:55] VITALS: PULSE 90
[2020-04-24] MEDS: GABAPENTIN 400 MG CAPSULE XX ×3 (08:55→16:32)
[2020-04-24] MEDS: ASPIRIN 81 MG CHEWABLE TABLET FEED TUBE (08:55)
[2020-04-24] MEDS: levETIRAcetam ORAL SOL 500 MG/5 ML UDC FEED TUBE ×2 (08:55→22:17)
[2020-04-24] MEDS: METOPROLOL TARTRATE 50 MG TAB FEED TUBE ×2 (08:55→22:17)
[2020-04-24] MEDS: amLODIPine BESYLATE 5 MG TABLET 10 MG FEED TUBE (08:55)
--- NOTE | 2020-04-24 12:59 | PM.PNPUL ---
Progress Note: A&P Assessment and Plan (1) Aspiration pneumonia: Qualifiers: Aspiration pneumonia type: unspecified Laterality: bilateral Lung location: unspecified part of lung Qualified Code(s): J69.0 - Pneumonitis due to inhalation of food and vomit Code(s): J69.0 - Pneumonitis due to inhalation of food and vomit Status: Acute Assessment and Plan: - keep head of the bed > 30 degrees at all times - CT chest order for paratracheal lymph node - overall long term care social worker prognosis is poor as he is prone to getting recurrent aspiration pneumonias and UTI's - avoid narcotics, sedatives of any kind. Subjective Date/time seen: 04/24/20 12:59 Interval history: 60 y/o male with reccurent aspiration pneumonia due stroke. Patient is sleepy today. Doesn't answer questions. PEG tube in place Review of Systems Review of Systems: All systems reviewed & are unremarkable except as noted in HPI and below Exam Const: General: comfortable and no acute distress HENMT: Mouth: Yes moist mucous membranes Neck: Neck: supple and no JVD Resp: Auscultation: crackles Cardio: Rate: regular rate Rhythm: regular rhythm Heart sounds: no murmurs GI: Auscultation: normal bowel sounds Skin: General skin exam: normal color and no rashes or lesions noted Objective Data Vital Signs Vital Signs: Vital Signs - 24 hr 04/23/20 14:00 04/23/20 20:00 04/23/20 20:38 Temperature 36.7 C 36.9 C Pulse Rate 64 94 94 Respiratory Rate 16 20 Blood Pressure 120/66 153/96 H Pulse Oximetry 96 97 04/24/20 00:01 04/24/20 06:00 04/24/20 08:55 Temperature 37.3 C 37.1 C Pulse Rate 95 94 90 Respiratory Rate 20 20 Blood Pressure 125/69 123/56 L Pulse Oximetry 97 99 Intake/Output Intake/Output: Intake & Output 04/21/20 04/22/20 04/23/20 04/24/20 23:59 23:59 23:59 23:59 Intake Total 2036 1290 2101 846 Output Total 1200 1150 1350 550 Balance 836 140 751 296 Meds/Results Medications: Active Medications Generic Name Dose Route Start Last Admin Trade Name Freq PRN Reason Stop Dose Admin Acetaminophen 500 mg 04/21/20 17:28 Tylenol Elixir FEED TUBE Q6H PRN PAIN 1-3 Hydrocodone Bitart/Acetaminophen 1 tab 04/19/20 12:29 04/23/20 09:35 [place] 5-325 Mg FEED TUBE 1 tab Q4H PRN Administration Pain Rated 4-6 Amlodipine Besylate 10 mg 04/22/20 09:00 04/24/20 08:55 Norvasc FEED TUBE 10 mg DAILY SHARRI Administration Aspirin 81 mg 04/22/20 09:00 04/24/20 08:55 Aspirin Chewable FEED TUBE 81 mg DAILY SHARRI Administration Atorvastatin Calcium 80 mg 04/21/20 21:00 04/23/20 20:38 Lipitor FEED TUBE 80 mg HS SHARRI Administration Dextrose 12.5 gm 04/13/20 21:19 04/18/20 17:53 Dextrose 50% Syringe IV PUSH 12.5 gm PRN PRN Administration Hypoglycemia Protocol Ferrous Sulfate 325 mg 04/23/20 08:00 04/23/20 09:37 Ferrous Sulfate Liquid FEED TUBE 325 mg Q48H SHARRI Administration Gabapentin 400 mg 04/23/20 09:00 04/24/20 08:55 Neurontin XX 400 mg TID SHARRI Administration Glucagon 1 mg 04/13/20 21:19 Glucagon For Inj IM PRN PRN Hypoglycemia Protocol Glucose 15 gm 04/13/20 21:19 Glutose 15 PO PRN PRN Hypoglycemia Protocol Dextrose 1,000 mls @ 100 mls/hr 04/13/20 21:19 Dextrose 5% 1,000 Ml IVPB PRN PRN Hypoglycemia Protocol Insulin Aspart 2 - 5 units 04/14/20 12:00 04/24/20 05:32 Novolog SUB-Q Not Given Q6H [facility] Protocol Lansoprazole 30 mg 04/23/20 06:30 04/24/20 05:33 Prevacid Susp FEED TUBE 30 mg DAILY@0630 SHARRI Administration Levetiracetam 500 mg 04/21/20 21:00 04/24/20 08:55 Keppra Oral Solution FEED TUBE 500 mg Q12HR SHARRI Administration Metoprolol Tartrate 50 mg 04/21/20 21:00 04/24/20 08:55 Lopressor FEED TUBE 50 mg Q12HR SHARRI Administration Miconazole Nitrate 1 applic 04/16/20 09:00 04/24/20 08:55 Al
[2020-04-24 14:00] VITALS: BP 116/68; PULSE 105; RESP 18; TEMP 36.4; O2SAT 93
--- NOTE | 2020-04-24 14:36 | PM.IMPN ---
Progress Note: A&P Assessment and Plan (1) Severe sepsis: Code(s): A41.9 - Sepsis, unspecified organism; R65.20 - Severe sepsis without septic shock Status: Acute Assessment and Plan: Patient with severe sepsis due to hypovolemia secondary to coffee-ground emesis, diarrhea, and pneumonia. Symptoms much improved. WBC worse today. Consider recurrent aspiration or CDiff. No fevers. He is off abx now. Will follow WBC for now. (2) Pneumonia: Qualifiers: Aspiration pneumonia type: due to vomit Laterality: unspecified laterality Lung location: unspecified part of lung Pneumonia type: aspiration pneumonia Qualified Code(s): J69.0 - Pneumonitis due to inhalation of food and vomit Code(s): J18.9 - Pneumonia, unspecified organism Status: Acute Assessment and Plan: Stable. No fevers. Currently on room air. WBC back up to 18K. Cefepime was stopped 04/21/20. Concern for possible persistent aspiration. Patient has weak cough and very productive sputum requiring the nurses to suction. Repeat CT chest showing interval improvement in diffuse airspace opacities, likely resolving pneumonia. Consider CDiff for the reason for the elevated WBC. (3) Small bowel obstruction: Code(s): K56.609 - Unspecified intestinal obstruction, unspecified as to partial versus complete obstruction Status: Acute Assessment and Plan: CT on admission showing small bowel obstruction with apparent transition point at a small-bowel anastomosis near the umbilicus. NG tube was placed and bowel rest ordered. Symptoms improved with supportive care. TF started and tolerating. (4) Chronic kidney disease, stage 3: Code(s): N18.3 - Chronic kidney disease, stage 3 (moderate) Status: Acute Assessment and Plan: Creatinine stable at 0.9. Continue to monitor (5) Type 2 diabetes mellitus: Code(s): E11.9 - Type 2 diabetes mellitus without complications Status: Chronic Assessment and Plan: A1c 7.3 in March. The patient's blood glucose was reviewed on 04/24/20. Glucose remains well controlled. Continue AccuCheks covering with sliding scale. Hypoglycemia protocol available as needed. (6) Bacteriuria with pyuria: Code(s): R82.71 - Bacteriuria; R82.81 - Pyuria Status: Acute Assessment and Plan: UCx noted with >3 organisms each >10K so probably colonization. BCx Negative. (7) C. difficile diarrhea: Onset Date: ~03/2020 Code(s): A04.72 - Enterocolitis due to Clostridium difficile, not specified as recurrent Status: Acute Assessment and Plan: Pt recently treated for CDiff. Patient started back on PEG feeding. Resolved. (8) Essential hypertension: Code(s): I10 - Essential (primary) hypertension Status: Chronic Assessment and Plan: Patient's blood pressure was reviewed on 04/24/20. Blood pressure well controlled. Will continue to monitor. (9) Electrolyte abnormality: Code(s): E87.8 - Other disorders of electrolyte and fluid balance, not elsewhere classified Status: Acute Assessment and Plan: Na 125 on admission but normalized. Potassium elevated again today at 5.8 for unclear reasons. Could be related to Banatol and this was stopped. Kayexalate once. (10) Coffee ground emesis: Code(s): K92.0 - Hematemesis Status: Acute Assessment and Plan: Related to the pSBO. Hgb 10 on admission. Hgb dropped to 7.5 on 04/14/20 and 1U PRBC given. Hgb has since remained stable in the 8-9 range. Continue PPI. Continue to hold anticoagulation. Monitor Hgb periodically. (11) Peritracheal mass: Code(s): R22.2 - Localized swelling, mass and lump, trunk Status: Acute Assessment and Plan: CT scan on admission showing a 3.3 x 2.9 cm mass of the right upper mediastinum corresponding to the chest radiographic finding in question.
[2020-04-24 17:46] LABS: Glucose Point of Care 106 (65-105)
[2020-04-24 22:00] VITALS: BP 148/81; PULSE 97; RESP 18; TEMP 37.5; O2SAT 94
[2020-04-24 22:17] VITALS: PULSE 105
[2020-04-24] MEDS: ATORVASTATIN 40 MG TABLET 80 MG FEED TUBE (22:18)
[2020-04-24] MEDS: TAMSULOSIN HCL 0.4 MG CAPSULE 0.8 MG XX (22:18)
[2020-04-24 22:56] LABS: Glucose Point of Care 96 (65-105)
[2020-04-25 00:47] LABS: Glucose Point of Care 94 (65-105)
[2020-04-25 06:00] VITALS: BP 143/78; PULSE 86; RESP 18; TEMP 36.6; O2SAT 98
[2020-04-25 06:11] LABS: Basophils Percent Auto 0.3 % (0.2-1.2); Eosinophils Absolute Auto 0.3 K/mm3 (0-0.3); Hematocrit 27.7 % (42.0-52.0); Hemoglobin 8.5 g/dL (14.0-18.0); Immature Granulocyte Absolute 0.06 K/mm3 (0.00-0.031); Immature Granulocyte Percent A 0.5 % (0-0.5); Lymphocytes Absolute Auto 1.27 K/mm3 (0.9-3.2); Lymphocytes Percent Auto 9.9 % (18.3-44.2); Mean Corpuscular HGB Conc 30.7 g/dl (32-36); Mean Corpuscular Hemoglobin 26.5 pg (26-34); Mean Corpuscular Volume 86.3 fl (80-100); Mean Platelet Volume 11.1 fl (7.4-10.4); Monocytes Absolute Auto 0.8 K/mm3 (0.1-0.6); Monocytes Percent Auto 6.3 % (2.6-8.5); Neutrophils Absolute Auto 10.3 K/mm3 (1.3-6.7); Platelet Count Result 384 k/mm3 (150-375); Red Blood Count 3.21 M/mm3 (4.6-6.20); Red Cell Distribution Width 18.8 % (11.5-14.5); White Blood Count 12.8 K/mm3 (4.5-10.0)
[2020-04-25 06:18] LABS: Blood Urea Nitrogen 28 mg/dL (9-20); Calcium 8.5 mg/dL (8.4-10.2); Carbon Dioxide 26 mmol/L (22-30); Chloride 101 mmol/L (98-107); Estimated Glomerular Filt Rate > 60; Glucose 110 mg/dL (75-110); Sodium 133 mmol/L (137-145)
[2020-04-25] MEDS: LANSOPRAZOLE ORAL SUSP 30 MG/10 ML ORAL.SUSP FEED TUBE (06:47)
[2020-04-25] MEDS: FERROUS SULFATE LIQUID 325 MG/7.4 ML ELIXIR FEED TUBE (08:35)
[2020-04-25] MEDS: ASPIRIN 81 MG CHEWABLE TABLET FEED TUBE (08:35)
[2020-04-25] MEDS: levETIRAcetam ORAL SOL 500 MG/5 ML UDC FEED TUBE ×2 (08:35→22:30)
[2020-04-25] MEDS: GABAPENTIN 400 MG CAPSULE XX ×3 (08:35→18:13)
[2020-04-25] MEDS: amLODIPine BESYLATE 5 MG TABLET 10 MG FEED TUBE (08:35)
[2020-04-25 08:36] VITALS: PULSE 90
[2020-04-25] MEDS: METOPROLOL TARTRATE 50 MG TAB FEED TUBE ×2 (08:36→22:30)
[2020-04-25 12:31] LABS: Glucose Point of Care 111 (65-105)
[2020-04-25 13:19] LABS: Glucose Point of Care 108 (65-105)
[2020-04-25 14:00] VITALS: BP 118/69; PULSE 94; RESP 18; TEMP 37.1; O2SAT 94
--- NOTE | 2020-04-25 15:33 | PCDIET ---
Nutrition Follow-Up Complete: Swallowing Difficulties as related to dysphagia as evidenced by failed MBS Meet estimated nutritional needs. Goal: Goal met. Continue goal. Pt current nutrition is Glucerna 1.2 at 70ml/hr. Nutrition recommendation: Recommend change to Osmolite due to continued loose stools Last recorded weight is 59.9 kg up from assessed wt of 58.6kg Bowel Motility: copious liquid stool Labs Reviewed:Na 133, BUN 28, K 5.0 Meds Noted:[place], Norvasc, Lipitor Additional Notes: Pt continues to have loose stools. Discussed with MD about EN change. Osmolite is lower in K than Glucerna 1.2 and has no fiber unlike Glucerna which has mixed fiber, including insoluble fiber. Blood sugars have been well controlled. We will trial Osmolite 1.5 at 55ml/hr to provide 1815 kcals, 922ml free water, and 76g protein. We will monitor for EN tolerance, stool consistency, labs (glucose and K) and wt every T/F.
--- NOTE | 2020-04-25 16:18 | PM.IMPN ---
Progress Note: A&P Assessment and Plan (1) Severe sepsis: Code(s): A41.9 - Sepsis, unspecified organism; R65.20 - Severe sepsis without septic shock Status: Acute Assessment and Plan: Patient with severe sepsis due to hypovolemia secondary to coffee-ground emesis, diarrhea, and pneumonia. Symptoms much improved. WBC back down without treatment. Consider recurrent aspiration or CDiff. No fevers. He remains off abx now. (2) Pneumonia: Qualifiers: Aspiration pneumonia type: due to vomit Laterality: unspecified laterality Lung location: unspecified part of lung Pneumonia type: aspiration pneumonia Qualified Code(s): J69.0 - Pneumonitis due to inhalation of food and vomit Code(s): J18.9 - Pneumonia, unspecified organism Status: Acute Assessment and Plan: Stable. No fevers. Currently on room air. Cefepime was stopped 04/21/20. Concern for possible persistent aspiration. Patient has weak cough and very productive sputum requiring the nurses to suction. Repeat CT chest showing interval improvement in diffuse airspace opacities, likely resolving pneumonia. WBC climbed back up to 18K for unclear reasons but tended back down to 12.8K today on no abx. Follow intermittently (3) Small bowel obstruction: Code(s): K56.609 - Unspecified intestinal obstruction, unspecified as to partial versus complete obstruction Status: Acute Assessment and Plan: CT on admission showing small bowel obstruction with apparent transition point at a small-bowel anastomosis near the umbilicus. NG tube was placed and bowel rest ordered. Symptoms improved with supportive care. TF started and tolerating at goal. (4) Chronic kidney disease, stage 3: Code(s): N18.3 - Chronic kidney disease, stage 3 (moderate) Status: Acute Assessment and Plan: Creatinine stable at 0.8. Continue to monitor (5) Type 2 diabetes mellitus: Code(s): E11.9 - Type 2 diabetes mellitus without complications Status: Chronic Assessment and Plan: A1c 7.3 in March. The patient's blood glucose was reviewed on 04/25/20. Glucose remains well controlled. Continue AccuCheks covering with sliding scale since we are changing his TF. Hypoglycemia protocol available as needed. (6) Bacteriuria with pyuria: Code(s): R82.71 - Bacteriuria; R82.81 - Pyuria Status: Acute Assessment and Plan: UCx noted with >3 organisms each >10K so probably colonization. BCx Negative. (7) C. difficile diarrhea: Onset Date: ~03/2020 Code(s): A04.72 - Enterocolitis due to Clostridium difficile, not specified as recurrent Status: Acute Assessment and Plan: Pt recently treated for CDiff. Patient started back on PEG feeding. Increased stool output since being off the Banatol. Discussed with Dietary and plan is to change tube feedings. (8) Essential hypertension: Code(s): I10 - Essential (primary) hypertension Status: Chronic Assessment and Plan: Patient's blood pressure was reviewed on 04/25/20. Blood pressure well controlled. Will continue to monitor. (9) Electrolyte abnormality: Code(s): E87.8 - Other disorders of electrolyte and fluid balance, not elsewhere classified Status: Acute Assessment and Plan: Na 125 on admission but normalized. Potassium elevated again today at 5.0 for unclear reasons. Could be related to Banatol and this was stopped. (10) Coffee ground emesis: Code(s): K92.0 - Hematemesis Status: Acute Assessment and Plan: Related to the pSBO. Hgb 10 on admission. Hgb dropped to 7.5 on 04/14/20 and 1U PRBC given. Hgb has since remained stable in the 8-9 range. Continue PPI. Continue to hold anticoagulation. Monitor Hgb periodically. (11) Peritracheal mass: Code(s): R22.2 - Localized swelling, mass and lump, trunk Status: Acute Assess
[2020-04-25 19:01] LABS: Glucose Point of Care 90 (65-105)
--- NOTE | 2020-04-25 19:55 | PM.PNPUL ---
Progress Note: A&P Assessment and Plan (1) Aspiration pneumonia: Qualifiers: Aspiration pneumonia type: unspecified Laterality: bilateral Lung location: unspecified part of lung Qualified Code(s): J69.0 - Pneumonitis due to inhalation of food and vomit Code(s): J69.0 - Pneumonitis due to inhalation of food and vomit Status: Acute Assessment and Plan: He has a peg-tube and receives tube feedings, and apparently also takes some pureed foods by mouth, which may be causing his aspiration. Most of his intake is by tube feeds. He may be aspirating repeatedly. WBC down 12.8, improved. Has patchy infiltrates on imaging. He will likely continue to aspirate. (2) Lung mass: Code(s): R91.8 - Other nonspecific abnormal finding of lung field Status: Acute Assessment and Plan: Paratracheal mass is about 2.5 cm, and can be evaluated with a PET scan after discharge, and if he needs to have a biopsy, he can be referred to interventional pulmonary . This mass is not in a location that can be accessed by regular bronchoscopy. (3) Dementia: Qualifiers: Dementia type: unspecified type Code(s): F03.90 - Unspecified dementia without behavioral disturbance Status: Acute Assessment and Plan: chronic baseline problem. Subjective Date/time seen: 04/25/20 19:55 Interval history: This 60-year-old man is seen in follow up for aspiration pneumonia and a paratracheal mass. He has a history of a stroke with R hemiparesis, expressive aphasia, CHF, HTN, HTN, DM. Had coffee-ground emesis and possible aspiration. His cough is better, and he is on room air, denies being short of breath. He is getting tube feeds. He is more alert, pulls on shrewin pillow under his left hip, wants it out. He denies feeling short of breath, however has loud rhonchi, sounds like he has secretions in his airway. Review of Systems Review of Systems: All systems reviewed & are unremarkable except as noted in HPI and below Exam Const: General: comfortable and no acute distress HENMT: Mouth: Yes moist mucous membranes Eyes: General: appearance normal, both eyes and all related structures Neck: Neck: supple and no JVD Lymphatic: lymphadenopathy not noted Resp: Auscultation: crackles, rhonchi (scattered rhonchi in bases, cannot clear airway easily) and diminished lung sounds Cardio: Rate: regular rate Rhythm: regular rhythm Heart sounds: no gallops and no murmurs GI: Auscultation: normal bowel sounds Other: has a G-tube and is getting tube feeds Skin: General skin exam: normal color and no rashes or lesions noted Neuro: General: No gait normal (appears bed bound) Extrem: Right lower extremity: full ROM Psych: Mental Status: mental status grossly normal (this is really hard to tell; limited speech; he can say simple words. Nods.) Objective Data Vital Signs Vital Signs: Vital Signs - 24 hr 04/24/20 22:00 04/24/20 22:17 04/25/20 06:00 Temperature 37.5 C 36.6 C Pulse Rate 97 105 H 86 Respiratory Rate 18 18 Blood Pressure 148/81 H 143/78 H Pulse Oximetry 94 98 04/25/20 08:36 04/25/20 14:00 Temperature 37.1 C Pulse Rate 90 94 Respiratory Rate 18 Blood Pressure 118/69 Pulse Oximetry 94 Intake/Output Intake/Output: Intake & Output 04/22/20 04/23/20 04/24/20 04/25/20 23:59 23:59 23:59 23:59 Intake Total 1290 2101 846 1554 Output Total 1150 1350 1200 1400 Balance 140 751 -354 154 Meds/Results Medications: Active Medications Generic Name Dose Route Start Last Admin Trade Name Freq PRN Reason Stop Dose Admin Acetaminophen 500 mg 04/21/20 17:28 Tylenol Elixir FEED TUBE Q6H PRN PAIN 1-3 Hydrocodone Bitart/Acetaminophen 1 tab 04/19/20 12:29 08
[2020-04-25 22:00] VITALS: BP 137/68; PULSE 99; RESP 18; TEMP 37; O2SAT 93
[2020-04-25 22:30] VITALS: PULSE 94
[2020-04-25] MEDS: ATORVASTATIN 40 MG TABLET 80 MG FEED TUBE (22:30)
[2020-04-25] MEDS: TAMSULOSIN HCL 0.4 MG CAPSULE 0.8 MG XX (22:30)
[2020-04-26 00:30] LABS: Glucose Point of Care 109 (65-105)
[2020-04-26 06:00] VITALS: BP 135/74; PULSE 86; RESP 20; TEMP 36.7; O2SAT 100
[2020-04-26] MEDS: LANSOPRAZOLE ORAL SUSP 30 MG/10 ML ORAL.SUSP FEED TUBE (06:21)
[2020-04-26 06:46] LABS: Glucose Point of Care 134 (65-105)
[2020-04-26] MEDS: amLODIPine BESYLATE 5 MG TABLET 10 MG FEED TUBE (09:42)
[2020-04-26 09:43] VITALS: PULSE 88
[2020-04-26] MEDS: ASPIRIN 81 MG CHEWABLE TABLET FEED TUBE (09:43)
[2020-04-26] MEDS: GABAPENTIN 400 MG CAPSULE XX ×3 (09:43→18:48)
[2020-04-26] MEDS: levETIRAcetam ORAL SOL 500 MG/5 ML UDC FEED TUBE ×2 (09:43→21:05)
[2020-04-26] MEDS: METOPROLOL TARTRATE 50 MG TAB FEED TUBE ×2 (09:43→21:05)
[2020-04-26] MEDS: ACETAMINOPHEN ELIXIR 325 MG/10.15 ML UDC 500 MG FEED TUBE (09:48)
[2020-04-26 12:03] LABS: Glucose Point of Care 132 (65-105)
[2020-04-26 14:00] VITALS: BP 105/68; PULSE 84; RESP 16; TEMP 36.9; O2SAT 97
--- NOTE | 2020-04-26 16:25 | PM.IMPN ---
Progress Note: A&P Assessment and Plan (1) Leg pain, left: Code(s): M79.605 - Pain in left leg Status: Acute Assessment and Plan: Nothing obvious by exam. Explained to sister that we could perform arterial and/or venous doppler and explained the next steps if we found something that needed treatment. For possible DVT, he could not tolerate anticoagulation due to the coffeeground emesis and recent hematoma after the GT placement and thus would need filter. DVT seems less likely given he has had the SCDs place since admission. For possible arterial ischemia, this clinically seems less likely. Explained to the sister what further evaluations could consist of. She decided not to want to proceed at this time with further evaluation of the leg pain. Patient is comfortable without obvious complaints or pain. He may have had a muscle cramp. Offered further evaluation if she wishes after she speaks with her family. Family requesting pain medications so will have [place] available as needed. (2) Severe sepsis: Code(s): A41.9 - Sepsis, unspecified organism; R65.20 - Severe sepsis without septic shock Status: Acute Assessment and Plan: Patient with severe sepsis due to hypovolemia secondary to coffee-ground emesis, diarrhea, and pneumonia. Symptoms much improved. WBC back down without treatment. Consider recurrent aspiration. Recurrent CDiff unlikely. No fevers. He remains off abx now. Follow clinically. (3) Pneumonia: Qualifiers: Aspiration pneumonia type: due to vomit Laterality: unspecified laterality Lung location: unspecified part of lung Pneumonia type: aspiration pneumonia Qualified Code(s): J69.0 - Pneumonitis due to inhalation of food and vomit Code(s): J18.9 - Pneumonia, unspecified organism Status: Acute Assessment and Plan: Stable. No fevers. Currently on room air. Cefepime was stopped 04/21/20. Concern for possible persistent aspiration. Patient has weak cough and very productive sputum requiring the nurses to suction. Repeat CT chest 04/24 showing interval improvement in diffuse airspace opacities, likely resolving pneumonia. WBC climbed back up to 18K for unclear reasons but tended back down to 12.8K yesterday on no abx. Follow intermittently (4) Small bowel obstruction: Code(s): K56.609 - Unspecified intestinal obstruction, unspecified as to partial versus complete obstruction Status: Acute Assessment and Plan: CT on admission showing small bowel obstruction with apparent transition point at a small-bowel anastomosis near the umbilicus. NG tube was placed and bowel rest ordered. Symptoms improved with supportive care. TF started and tolerating at goal. (5) Acute on chronic renal failure: Onset Date: Unknown Code(s): N17.9 - Acute kidney failure, unspecified; N18.9 - Chronic kidney disease, unspecified Status: Acute Assessment and Plan: Cr was elevated on admission and climbed to 2.6 bfore trending back down to 0.8. Continue to monitor periodically. (6) Type 2 diabetes mellitus: Code(s): E11.9 - Type 2 diabetes mellitus without complications Status: Chronic Assessment and Plan: A1c 7.3 in March. The patient's blood glucose was reviewed on 04/26/20. Glucose remains well controlled. Continue AccuCheks covering with sliding scale since we are changing his TF. Hypoglycemia protocol available as needed. (7) Bacteriuria with pyuria: Code(s): R82.71 - Bacteriuria; R82.81 - Pyuria Status: Acute Assessment and Plan: UCx noted with >3 organisms each >10K so probably colonization. BCx Negative. (8) C. difficile diarrhea: Onset Date: ~03/2020 Code(s): A04.72 - Enterocolitis due to Clostridium difficile, not specified as recurrent Status: Acute Assessment and Plan: Pt recently treated for CDiff. Patient started back on PEG feeding
[2020-04-26 18:08] LABS: Glucose Point of Care 112 (65-105)
[2020-04-26 18:11] LABS: SARS-CoV-2 RNA PCR Negative
[2020-04-26] MEDS: ATORVASTATIN 40 MG TABLET 80 MG FEED TUBE (21:04)
[2020-04-26] MEDS: TAMSULOSIN HCL 0.4 MG CAPSULE 0.8 MG XX (21:05)
[2020-04-26 22:00] VITALS: BP 133/72; PULSE 87; RESP 18; TEMP 36.8; O2SAT 94
[2020-04-27 01:08] LABS: Glucose Point of Care 121 (65-105)
[2020-04-27 06:00] VITALS: BP 99/53; PULSE 75; RESP 22; TEMP 35.7; O2SAT 96
[2020-04-27] MEDS: LANSOPRAZOLE ORAL SUSP 30 MG/10 ML ORAL.SUSP FEED TUBE (06:13)
[2020-04-27 06:43] LABS: Glucose Point of Care 128 (65-105)
[2020-04-27] MEDS: FERROUS SULFATE LIQUID 325 MG/7.4 ML ELIXIR FEED TUBE (09:12)
[2020-04-27] MEDS: ASPIRIN 81 MG CHEWABLE TABLET FEED TUBE (09:13)
[2020-04-27] MEDS: levETIRAcetam ORAL SOL 500 MG/5 ML UDC FEED TUBE (09:13)
[2020-04-27] MEDS: GABAPENTIN 400 MG CAPSULE XX ×2 (09:13→12:15)
[2020-04-27] MEDS: amLODIPine BESYLATE 5 MG TABLET 10 MG FEED TUBE (09:13)
[2020-04-27 09:14] VITALS: PULSE 84
[2020-04-27] MEDS: METOPROLOL TARTRATE 50 MG TAB FEED TUBE (09:14)
[2020-04-27 12:06] LABS: Glucose Point of Care 104 (65-105)
--- NOTE | 2020-04-27 13:34 | PM.DS ---
DS: Admitting Diagnosis Admitting Diagnosis Admitting Diagnosis: Sepsis, unspecified organism DS: Discharge Diagnosis Discharge Diagnosis (1) Leg pain, left: Code(s): M79.605 - Pain in left leg Status: Acute Assessment and Plan: Nothing obvious by exam. Explained to sister that we could perform further evaluation but she opted to not pursue this. Spoke with family at length to discuss end of life issues. They state clearly that the patient would not have wanted 'any of this' but do not want to make him hospice. They feel that he will improve if he gets good care at the [facility]. (2) Severe sepsis: Code(s): A41.9 - Sepsis, unspecified organism; R65.20 - Severe sepsis without septic shock Status: Acute Assessment and Plan: Patient with severe sepsis due to hypovolemia secondary to coffee-ground emesis, diarrhea, and pneumonia. Symptoms much improved. WBC back down without treatment. Consider recurrent aspiration. (3) Pneumonia: Qualifiers: Aspiration pneumonia type: due to vomit Laterality: unspecified laterality Lung location: unspecified part of lung Pneumonia type: aspiration pneumonia Qualified Code(s): J69.0 - Pneumonitis due to inhalation of food and vomit Code(s): J18.9 - Pneumonia, unspecified organism Status: Acute Assessment and Plan: Stable. No fevers. Weaned to room air. Cefepime was stopped 04/21/20. Concern for possible persistent aspiration. Patient has weak cough and very productive sputum requiring the nurses to suction. Repeat CT chest 04/24 showing interval improvement in diffuse airspace opacities, likely resolving pneumonia. WBC climbed back up to 18K for unclear reasons but tended back down to 12.8K on no abx. (4) Small bowel obstruction: Code(s): K56.609 - Unspecified intestinal obstruction, unspecified as to partial versus complete obstruction Status: Acute Assessment and Plan: CT on admission showing small bowel obstruction with apparent transition point at a small-bowel anastomosis near the umbilicus. NG tube was placed and bowel rest ordered. Symptoms improved with supportive care. TF started and tolerating at goal. (5) Acute on chronic renal failure: Onset Date: Unknown Code(s): N17.9 - Acute kidney failure, unspecified; N18.9 - Chronic kidney disease, unspecified Status: Acute Assessment and Plan: Cr was elevated on admission and climbed to 2.6 bfore trending back down to 0.8. (6) Type 2 diabetes mellitus: Code(s): E11.9 - Type 2 diabetes mellitus without complications Status: Chronic Assessment and Plan: A1c 7.3 in March. The patient's blood glucose was monitored closely. Glucose remained well controlled. Monitored with AccuCheks covering with sliding scale. Hypoglycemia protocol available as needed. (7) Bacteriuria with pyuria: Code(s): R82.71 - Bacteriuria; R82.81 - Pyuria Status: Acute Assessment and Plan: UCx noted with >3 organisms each >10K so probably colonization. BCx Negative. (8) C. difficile diarrhea: Onset Date: ~03/2020 Code(s): A04.72 - Enterocolitis due to Clostridium difficile, not specified as recurrent Status: Acute Assessment and Plan: Pt recently treated for CDiff. Patient started back on PEG feeding. Increased stool output since being off the Banatol. Discussed with Dietary and tube feedings changed. Diarrhea improved (9) Essential hypertension: Code(s): I10 - Essential (primary) hypertension Status: Chronic Assessment and Plan: Patient's blood pressure monitored closely. Blood pressure well controlled. We continued Metoprolol and Norvasc. (10) Electrolyte abnormality: Code(s): E87.8 - Other disorders of electrolyte and fluid balance, not elsewhere classified Status: Acute Assessment and Plan: Na 125 on admission b
[2020-04-27 14:00] VITALS: BP 121/71; PULSE 86; RESP 18; TEMP 36.9; O2SAT 99
== END 2020-04-27 15:45 | DRG 720 ==
LOC: ANHED 19:45 → ANHICU 21:00 → ANH3MEDSUR 04-16 01:03 → ANHICU 04-30 12:50
PROVIDERS: Family Medicine; General Practice; Internal Medicine; Physician Assistant; Admitting Provider Internal Medicine; Emergency Provider Emergency Medicine; Visit Provider Internal Medicine
DX: A41.9 Sepsis, unspecified organism (principal); N39.0 Urinary tract infection, site not specified; J69.0 Pneumonitis due to inhalation of food and vomit; R65.21 Severe sepsis with septic shock; N18.3 Chronic kidney disease, stage 3 (moderate); E11.9 Type 2 diabetes mellitus without complications; I69.351 Hemiplegia and hemiparesis following cerebral infarction affecting right dominant side; I69.320 Aphasia following cerebral infarction; Z66 Do not resuscitate; Z20.828 Contact with and (suspected) exposure to other viral communicable diseases; K56.609 Unspecified intestinal obstruction, unspecified as to partial versus complete obstruction; I50.9 Heart failure, unspecified; I11.0 Hypertensive heart disease with heart failure; N17.9 Acute kidney failure, unspecified; D64.9 Anemia, unspecified; A04.72 Enterocolitis due to Clostridium difficile, not specified as recurrent; R22.1 Localized swelling, mass and lump, neck; R56.9 Unspecified convulsions; F03.90 Unspecified dementia, unspecified severity, without behavioral disturbance, psychotic disturbance, mood disturbance, and anxiety; S30.1XXD Contusion of abdominal wall, subsequent encounter; M79.606 Pain in leg, unspecified
CPT/HCPCS: 36415; 36430; 71045; 71260; 74019; 74177; 80048; 80053; 80202; 81001; 82550; 82570; 83605; 83735; 83930; 83935; 84100; 84132; 84300; 84443; 84484; 85014; 85018; 85025; 85027; 85610; 85730; 86140; 86850; 86900; 86901; 86923; 87040; 87086; 87088; 87635; 92507; 92526; 92610; 92611; 93005; 96365; 96367; 96368; 96375; 99291; A9270; C9113; C9803; J0131; J0456; J0692; J0696; J1953; J3370; J7030; J7050; J7120; P9016; Q9967; U0003